=== PATIENT | female | born 2000 | race Hispanic/Latino ===

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

== ENCOUNTER 2020-01-17 22:17 | Emergency (ER) | payer SELFPAY ==
--- OUTSIDE RECORDS SUMMARY | 2020-01-17 22:19 | XMS REPORT ---
:2000 [facility] [address] [place] [address] Care Team Providers Name Role Phone Unavailable Unavailable Unavailable Payers Payer Name Policy Type Policy Number Effective Date Expiration Date Problems This patient has no known problems. Allergies, Adverse Reactions, Alerts Allergy Allergy Status Severity Reaction(s) Onset Inactive Treating Comments Name Type Date Date Clinician No Known DA Active U 2019-03 00:00:0 0 Medications This patient has no known medications. Results Test Description Test Time Test Comments Text Results Atomic Results Result Comments URINALYSIS COMPLETE 2019-03-20 23:19:00 Test Item Value Reference Range Comments UA COLOR (test code=COLU) YELLOW YELLOW UA APPEARANCE (test code=APPU) CLEAR CLEAR UA GLUCOSE DIPSTICK (test code=DGLUU) NEGATIVE mg/dL NEGATIVE UA BILIRUBIN DIPSTICK (test code=BILU) NEGATIVE mg/dL NEGATIVE UA KETONE DIPSTICK (test code=KETU) NEGATIVE mg/dL NEGATIVE UA SPECIFIC GRAVITY (test code=SGU) 1.031 1.001-1.035 UA BLOOD DIPSTICK (test code=TAURUS) 0.5 mg/dL (2+) mg/dL NEGATIVE UA PH DIPSTICK (test code=OLMAN) 6.0 5.0-8.0 UA PROTEIN DIPSTICK (test code=PROU) 10 (Trace) mg/dL NEGATIVE UA UROBILINIOGEN DIPSTICK (test code=URO) 3.0 (1+) mg/dL NEGATIVE UA NITRITE DIPSTICK (test code=KHUSHBU) NEGATIVE NEGATIVE UA LEUKOCYTE ESTERASE W REFLEX (test code=LEUUR) NEGATIVE Vania/uL NEGATIVE UA WBC (test code=WBCU) 0-5 per HPF 0-5 UA RBC (test code=RBCU) 51-100 #/HPF 0-5 UA EPITHELIAL CELLS (test code=EPIU) FEW per HPF FEW UA BACTERIA (test code=BACU) FEW #/HPF NONE UA MUCUS (test code=MUCU) FEW #/LPF FEW Urine Source? Clean CatchBASIC METABOLIC [id number] 22:39:00 Test Item Value Reference Range Comments SODIUM (test code=NA) 141 mmol/L 136-145 POTASSIUM (test code=K) 4.0 mmol/L 3.5-5.1 CHLORIDE (test code=CL) 107.0 mmol/L 98-107 CARBON DIOXIDE (test 28.0 mmol/L 21-32 code=CO2) ANION GAP (test code=GAP) 10.0 10-20 GLUCOSE (test code=GLU) 86 mg/dL 74-106 BLOOD UREA NITROGEN (test 14 mg/dL 7-18 code=BUN) GLOMERULAR FILTRATION RATE > 60 mL/min >=60 Estimated GFR by using (test code=GFR) Modified MDRD formula.Chronic kidney disease is defined as either kidney damageor GFR <60 mL/min/1.73 m2 for >3 months. CREATININE (test code=CREAT) 0.70 mg/dL 0.55-1.02 Note change in reference range due to change in reagent. BUN/CREATININE RATIO (test 20.0 10-20 code=BUN/CREA) CALCIUM (test code=CA) 8.9 mg/dL 8.5-10.1 HCG SERUM [id number] 22:39:00 Test Item Value Reference Range Comments HCG SERUM BETA (test < 1.0 mIU/mL 0-3 INTERPRETATION:B-HCG LEVELS <5 code=HCG) SHOULD BE CONSIDERED "NEGATIVE." *WHEN BODERLINE RESULTS ARE ENCOUNTERED,PATIENT SAMPLESSHOULD BE REDRAWN 48 HOURS. 0-1 WEEKS AFTER CONCEPTION 5-50 MIU/ML1-2 WEEKS AFTER CONCEPTION 50-500 MIU/ML2-3 WEEKS AFTER CONCEPTION 100 -5,000 MIU/ML3-4 WEEKS AFTER CONCEPTION 500-10,000 MIU/ML4-5 WEEKS AFTER CONCEPTION 1000 -50,000 MIU/ML5-6 WEEKS AFTER CONCEPTION 10,000-100,000 MIU/ML6-8 WEEKS AFTER CONCEPTION 15,000- 200,000 MIU/ML2-3 MONTHS AFTER CONCEPTION 10,000-100,000 MIU/ML - DUP AB/PEL/SC [id number] 22:36:00 Name: ALKA MOLINA [facility] : 2000 Age/S: 18 / F [address] [facility] Unit #: [id number] Loc: [place] [address] Phys: Cori Herrmann NP Acct: [id number] Dis Date: Status : REG ER PHONE #: [phone] Exam Date: 03/20/20192215 FAX #: [phone] Reason: PELVIC PAIN EXAMS: CPTCODE: [id number] DUP AB/PEL/SC COMP [id number] REASON FOR EXAM: VAGINAL BLEEDING/PELVIC PAIN EXAM ORDER DATE: 03/20/2019 9:42 PM Attending Rosi: Cori Herrmann NP PROCEDURE: - US PELVIS COMPLETE, - US TRANSVAGINAL NON OB, - DUP AB/PEL/SC COMP FINDINGS: The transabdominal ultrasound shows the uterus measured 7.5 x 3.7 cm. The ovaries were not seen on the transabdominal exam. No evidenceof free fluid or adnexal mass on the transabdominal exam. The transvaginal ultrasound shows the endometrial stripe measured 0.5 cm with an IUD device present. The right ovary measured 1.7 x 1.5 cm. The left ovary measured 3.1 x 3 cm with a cyst measuring 2 cm. Unremarkable ovarian flow is seen. Duplex scans of the ovarian arteries were performed. Mneg scaleimages were supplemented with color-flow Doppler. Doppler flow velocity analysis (duplex Doppler) was performed. No fluid seen in the cul-de-sac. No evidence of IUP. IMPRESSION: Left ovarian cyst (2 cm). Electronically Signed by Rosi Rodgers on 2018 at 2236 Reported and signed by: Leonel Rodgers M.D. CC: Cori Herrmann NP Technologist: Anat Barroso RDMS Trnscb Date/Time: 03/20/2019 (2236) JackelineL Orig Print D/T: S: 03/20/2019 (223) Probe: PAGE 1 Signed Report- US TRANSVAGINAL NON [id number] 22:36:00 Name: ALKA MOLINA [facility] : 2000 Age/S: 18 / F [address] Unit #: [id number] Loc: [place] [address] Phys: Cori Herrmann NP Acct: [id number] Dis Date: Status: REG ER PHONE #: [phone] Exam Date: 03/20/20192215 FAX #: [phone] Reason: VAGINALBLEEDING/ PELVIC PAIN EXAMS: CPTCODE: [id number] [place] [id number] REASON FOR EXAM: VAGINAL BLEEDING/PELVIC PAIN EXAM ORDER DATE: 03/20/2019 9:42 PM Attending Rosi: Cori Herrmann NP PROCEDURE: - US PELVIS COMPLETE, - US TRANSVAGINAL NON OB, - DUP AB/PEL/SC COMP FINDINGS: The transabdominal ultrasound shows the uterus measured 7.5 x 3.7 cm. The ovaries were not seen on the transabdominal exam. No evidenceof free fluid or adnexal mass on the transabdominal exam. The transvaginal ultrasound shows the endometrial stripe measured 0.5 cm with an IUD device present. The right ovary measured 1.7 x 1.5 cm. The left ovary measured 3.1 x 3 cm with a cyst measuring 2 cm. Unremarkable ovarian flow is seen. Duplex scans of the ovarian arteries were performed. Meng scaleimages were supplemented with color-flow Doppler. Doppler flow velocity analysis ( duplex Doppler) was performed. No fluid seen in the cul-de-sac. No evidence of IUP. IMPRESSION: Left ovarian cyst (2 cm). at 2236 Reported and signed by: Leonel Rodgers M.D. CC: Cori Herrmann NP Technologist: Anat Barroso RDMS Trnscb Date/Time: 03/20/2019 (223) [email or web address] Orig Print D/T: S: 03/20/2019 (2239) Probe: [id number] PAGE 1 Signed Report- US PELVIS [id number] 22:36:00 Name : ALKA MOLINA [facility] : Age/S: 18 / F [address] Unit #: [id number] Loc: [place] [address] Phys: Cori Herrmann NP Acct: [id number] Dis Date: Status: REG ER PHONE #: [phone] Exam Date: 03/20/20192215 FAX #: [phone] Reason: VAGINALBLEEDING/PELVIC PAIN EXAMS: CPTCODE: [id number] US PELVIS COMPLETE [id number] REASON FOR EXAM: VAGINAL BLEEDING/PELVIC PAIN EXAM ORDER DATE: 03/20 9:42 PM Attending Rosi: Cori Herrmann NP PROCEDURE: - US PELVIS COMPLETE, - US TRANSVAGINAL NON OB, - DUP AB/PEL /SC COMP FINDINGS: The transabdominal ultrasound shows the uterus measured 7.5 x 3.7 cm. The ovaries were not seen on the transabdominal exam. No evidenceof free fluid or adnexal mass on the transabdominal exam. The transvaginal ultrasound shows the endometrial stripe measured 0.5 cm with an IUD device present. The right ovary measured 1.7 x 1.5 cm. The left ovary measured 3.1 x 3 cm with a cyst measuring 2 cm. Unremarkable ovarian flow is seen. Duplex scans of the ovarian arteries were performed. Meng scaleimages were supplemented with color -flow Doppler. Doppler flow velocity analysis (duplex Doppler) was performed. No fluid seen in the cul-de-sac. No evidence of IUP. IMPRESSION: Left ovarian cyst (2 cm). at 2236 Reported and signed by: Leonel Rodgers M.D. CC: Cori Herrmann NP Technologist: Anat Barroso RDMS Trnscb Date /Time: 03/20/2019 (2235) [place] Orig Print D/T: S: 01/2019 (223) Probe: PAGE 1 Signed ReportBASIC METABOLIC [id number] 22:30:00 Test Item Value Reference Range Comments SODIUM (test code=NA) 141 mmol/L 136-145 POTASSIUM (test code=K) 4.0 mmol/L 3.5-5.1 CHLORIDE (test code=CL) 107.0 mmol/L 98-107 CARBON DIOXIDE (test code=CO2) mmol/L 21-32 ANION GAP (test code=GAP) 10-20 GLUCOSE (test code=GLU) mg/dL 74-106 BLOOD UREA NITROGEN (test code=BUN) mg/dL 7-18 GLOMERULAR FILTRATION RATE (test code=GFR) mL/min >=60 CREATININE (test code=CREAT) mg/dL 0.55-1.02 BUN/CREATININE RATIO (test code=BUN/CREA) 10-20 CALCIUM (test code=CA) mg/dL 8.5-10.1 HCG SERUM [id number] 22:30:00 Test Item Value Reference Range Comments HCG SERUM BETA (test code=HCG) mIU/mL 0-3 CBC W/O [id number] 22:27:00 Test Item Value Reference Range Comments WHITE BLOOD CELL (test code=WBC) 8.9 K/mm3 4.5-12.5 RED BLOOD CELL (test code=RBC) 4.83 mill/mm3 3.7-5.2 HEMOGLOBIN (test code=HGB) 13.8 gram/dL 11.5-15.5 HEMATOCRIT (test code=HCT) 41.7 % 36.0-46.0 MEAN CELL VOLUME (test code=MCV) 86.3 fL 80-98 MEAN CELL HGB (test code=MCH) 28.6 picogram 27.0-33.0 MEAN CELL HGB CONCETRATION (test code=MCHC) 33.1 gram/dL 33.0-36.0 RED CELL DISTRIBUTION WIDTH (test code=RDW) 13.2 % 11.6-16.2 PLATELET COUNT (test code=PLT) 328 K/mm3 150-450 MEAN PLATELET VOLUME (test code=MPV) 9.8 fL 6.7-11.0 CBC W/O [id number] 22:13:00 Test Item Value Reference Range Comments WHITE BLOOD CELL (test code=WBC) K/mm3 4.5-12.5 RED BLOOD CELL (test code=RBC) mill/mm3 3.7-5.2 HEMOGLOBIN (test code=HGB) 13.8 gram/dL 11.5-15.5 HEMATOCRIT (test code=HCT) 41.7 % 36.0-46.0 MEAN CELL VOLUME (test code=MCV) fL 80-98 MEAN CELL HGB (test code=MCH) picogram 27.0-33.0 MEAN CELL HGB CONCETRATION (test code=MCHC) gram/dL 33.0-36.0 RED CELL DISTRIBUTION WIDTH (test code=RDW) % 11.6-16.2 PLATELET COUNT (test code=PLT) K/mm3 150-450 MEAN PLATELET VOLUME (test code=MPV) fL 6.7-11.0
[2020-01-18] MEDS ORDERED: MORPHINE 4 MG/ML SYR ONE (00:40)
[2020-01-18] MEDS ORDERED: ONDANSETRON 4 MG/2 ML VIAL ONE (00:40)
[2020-01-18 01:04] LABS: Absolute Lymphocytes (CBC) 2.7 K/uL (0.7-4.9); Basophils % 0.7 % (0-1.3); Hematocrit 37.7 % (36.0-45.0); Lymphocytes % 25.1 % (15.3-44.8); MPV 7.9 fL (7.6-11.3); RBC Red Blood Cell Count 4.37 M/uL (3.86-4.86)
[2020-01-18 01:15] LABS: ALT/SGPT 15 U/L (12-78); AST/SGOT 16 U/L (15-37); Albumin 2.8 g/dL (3.4-5.0); Alkaline Phosphatase 90 U/L (45-117); BUN Blood Urea Nitrogen 11 mg/dL (7-18); Bicarbonate 29 mmol/L (21-32); Bilirubin Direct < 0.1 mg/dL (0-0.2); Bilirubin Total 0.2 mg/dL (0.2-1.0); Glucose Level 88 mg/dL (74-106); Lipase 440 U/L (73-393); Potassium 4.1 mmol/L (3.5-5.1); Sodium Level 140 mmol/L (136-145)
[2020-01-18 02:14] LABS: Urine RBC <5 /HPF (NONE SEEN)
[2020-01-18 02:16] LABS: Urine Bacteria <20 /HPF (<20); Urine Culture Reflex Order NOT NEEDED
--- NOTE | 2020-01-18 03:19 | EDPHYS ---
Physician Documentation [facility] Name: Tiago Floyd Age: 19 yrs Sex: Female : 2000 Arrival Date: 01/17/2020 Time: 22:19 Bed 13 Private MD: ED Physician Rigoberto Mota HPI: 01/17 00:56 This 19 yrs old Female presents to ER via Ambulatory with complaints of jr8 Abdominal pain . 00:56 The patient presents with abdominal pain in the right upper quadrant. Onset: The jr8 symptoms/episode began/occurred gradually, 2 day(s) ago. The symptoms radiate to the right shoulder. Associated signs and symptoms: Pertinent positives: nausea. The symptoms are described as stabbing. Modifying factors: The symptoms are alleviated by nothing, the symptoms are aggravated by nothing. Severity of pain: At its worst the pain was moderate in the emergency department the pain is unchanged. The patient has not experienced similar symptoms in the past. The patient has not recently seen a physician. 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 - Social history:: Smoking status: Patient denies any tobacco usage or history of. ROS: 01/17 00:56 Eyes: Negative for injury, pain, redness, and discharge, ENT: Negative for injury, jr8 pain, and discharge, Neck: Negative for injury, pain, and swelling, Cardiovascular: Negative for chest pain, palpitations, and edema, Respiratory: Negative for shortness of breath, cough, wheezing, and pleuritic chest pain, Back: Negative for injury and pain, MS/Extremity: Negative for injury and deformity, Skin: Negative for injury, rash, and discoloration, Neuro: Negative for headache, weakness, numbness, tingling, and seizure. Abdomen/GI: Positive for abdominal pain, nausea, Negative for vomiting, diarrhea, constipation, abdominal cramps, abdominal distension. Exam: 00:56 Eyes: Pupils equal round and reactive to light, extra-ocular motions intact. Lids and jr8 lashes normal. Conjunctiva and sclera are non-icteric and not injected. Cornea within normal limits. Periorbital areas with no swelling, redness, or edema. ENT: Nares patent. No nasal discharge, no septal abnormalities noted. Tympanic membranes are normal and external auditory canals are clear. Oropharynx with no redness, swelling, or masses, exudates, or evidence of obstruction, uvula midline. Mucous membranes moist. Neck: Trachea midline, no thyromegaly or masses palpated, and no cervical lymphadenopathy. Supple, full range of motion without nuchal rigidity, or vertebral point tenderness. No Meningismus. Cardiovascular: Regular rate and rhythm with a normal S1 and S2. No gallops, murmurs, or rubs. Normal PMI, no JVD. No pulse deficits. Respiratory: Lungs have equal breath sounds bilaterally, clear to auscultation and percussion. No rales, rhonchi or wheezes noted. No increased work of breathing, no retractions or nasal flaring. Back: No spinal tenderness. No costovertebral tenderness. Full range of motion. Skin: Warm, dry with normal turgor. Normal color with no rashes, no lesions, and no evidence of cellulitis. MS/ Extremity: Pulses equal, no cyanosis. Neurovascular intact. Full, normal range of motion. Neuro: Awake and alert, GCS 15, oriented to person, place, time, and situation. Cranial nerves II-XII grossly intact. Motor strength 5/5 in all extremities. Sensory grossly intact. Cerebellar exam normal. Normal gait. 00:56 Abdomen/GI: Inspection: abdomen appears normal, Bowel sounds: active, all quadrants, Palpation: soft, in all quadrants, moderate abdominal tenderness, in the right upper quadrant, mass, is not appreciated, rebound tenderness, is not appreciated, voluntary guarding, is not appreciated, involuntary guarding, is not appreciated, no appreciated organomegaly, Indicators: McBurney's point is not tender, Carr's sign is positive, Rovsing's sign is negative, Obturator sign is negative, Liver: tenderness, is not appreciated. Vital Signs: 01/16 22:45 BP 113 / 64; Pulse 92; Resp 16 S; Temp 98.4(O); Pulse Ox 100% on R/A; Weight 57.61 kg bb (R); Height 5 ft. 0 in. (152.40 cm) (R); Pain 8/10; 01/17 01:00 BP 109 / 78; Pulse 89; Resp 18; Pulse Ox 100% on R/A; mg2 02:00 BP 105 / 78; Pulse 80; Resp 18; Pulse Ox 100% on R/A; mg2 03:31 BP 115 / 78; Pulse 90; Resp 18; Temp 98; Pulse Ox 100% on R/A; mg2 03 22:45 Body Mass Index 24.80 (57.61 kg, 152.40 cm) bb MDM: 00:20 Patient medically screened. jr8 02:28 Data reviewed: vital signs, nurses notes, lab test result(s). Data interpreted: Pulse jr8 oximetry: on room air is 100 %. Interpretation: normal. Counseling: I had a detailed discussion with the patient and/or guardian regarding: the historical points, exam findings, and any diagnostic results supporting the discharge/admit diagnosis, lab results, radiology results. Transition of care: After a detail discussion of the patient's case, care is transferred to Rigoberto Mota MD. 01/17 00:30 Order name: Basic Metabolic Panel; Complete Time: :01/17 00:30 Order name: CBC with Diff; Complete Time: :01/17 00:30 Order name: Creatinine for Radiology; Complete Time: 01/17 00:30 Order name: Hepatic Function; Complete Time: 01/17 00:30 Order name: Lipase; Complete Time: :01/17 00:30 Order name: Urine Microscopic Only; Complete Time: 02:18 01/17 00:30 Order name: IV Saline Lock; Complete Time: 00:47 01/17 00:30 Order name: Labs collected and sent; Complete Time: 00:48 01/17 00:30 Order name: Urine Test (obtain specimen); Complete Time: 01/17 00:30 Order name: Urine Dipstick-Ancillary (obtain specimen); Complete Time: 01/17 01:21 Order name: CT Abd/Pelvis - IV Contrast Only jr8 Administered Medications: 00:46 Drug: Zofran (Ondansetron) 4 mg Route: IVP; Site: right antecubital; mg2 03:23 Follow up: Response: No adverse reaction mg2 00:47 Drug: morphine 4 mg Route: IVP; Site: right antecubital; mg2 03:23 Follow up: Response: No adverse reaction; RASS: Alert and Calm (0) mg2 03:31 Drug: [place] (7.5 mg-325 mg) 1 tabs Route: PO; mg2 03:31 Follow up: Response: No adverse reaction; Medication administered at discharge. mg2 Disposition: 03:16 Co-signature as Attending Physician, Rigoberto Mota MD. pkl Disposition: 01/18/20 03:18 Discharged to Home. Impression: Abdominal pain. - Condition is Stable. - Medication Reconciliation Form, Thank You Letter, Antibiotic Education, Prescription Opioid Use form. - Follow up: Private Physician; When: 1 - 2 days; Reason: Re-evaluation by your physician. - Problem is new. - Symptoms have improved. Signatures: Dispatcher [employer] EDMS Rigoberto Mota MD MD pkl Siena Davila RN RN bb Efraín Teague PA PA 8 Fili Cuevas RN RN mg2 Corrections: (The following items were deleted from the chart) 03:45 03:18 01/18/2020 03:18 Discharged to Home. Impression: Abdominal pain. Condition is mg2 Stable. Forms are Medication Reconciliation Form, Thank You Letter, Antibiotic Education, Prescription Opioid Use. Follow up: Private Physician; When: 1 - 2 days; Reason: Re-evaluation by your physician. Problem is new. Symptoms have improved. pkl
--- NOTE | 2020-01-18 03:19 | ER ---
Nurse's Notes [facility] Name: Tiago Floyd Age: 19 yrs Sex: Female : 2000 Arrival Date: 01/17/2020 Time: 22:19 Bed 13 Private MD: Diagnosis: Abdominal pain Presentation: 01/16 22:45 Chief complaint: Patient states: she is having sharp pain and pressure under her right bb rib area x one week which is getting worse. Coronavirus screen: The patient has NOT traveled to [place] in the past 14 days. Proceed with normal triage procedures. Ebola Screen: No symptoms or risks identified at this time. Initial Sepsis Screen: Does the patient meet any 2 criteria? No. Patient's initial sepsis screen is negative. Does the patient have a suspected source of infection? No. Patient's initial sepsis screen is negative. Risk Assessment: Do you want to hurt yourself or someone else? Patient reports no desire to harm self or others. 22:45 Method Of Arrival: Ambulatory bb 22:45 Acuity: JANET 3 bb 01/17 02:43 Onset of symptoms was December 2019. 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 - Social history:: Smoking status: Patient denies any tobacco usage or history of. Screenin/02 01:00 Fall Risk None identified. IV access (20 points). mg2 02:42 Abuse screen: Denies threats or abuse. Denies injuries from another. Nutritional mg2 screening: No deficits noted. Tuberculosis screening: No symptoms or risk factors identified. Assessment: 01:00 General: Appears in no apparent distress. comfortable, Behavior is calm, cooperative. mg2 Pain: Complains of pain in right upper quadrant Pain radiates to right shoulder. Neuro: Level of Consciousness is awake, alert, obeys commands, Oriented to person, place, time, situation. Cardiovascular: Capillary refill < 3 seconds Patient's skin is warm and dry. Respiratory: Airway is patent Respiratory effort is even, unlabored, Respiratory pattern is regular, symmetrical. GI: Abdomen is flat, non-distended, Reports upper abdominal pain, nausea. : No signs and/or symptoms were reported regarding the genitourinary system. EENT: No signs and/or symptoms were reported regarding the EENT system. Derm: Skin is intact, is healthy with good turgor, Skin is pink, warm \T\ dry. normal. Musculoskeletal: Circulation, motion, and sensation intact. Capillary refill < 3 seconds. 02:00 Reassessment: Patient appears in no apparent distress at this time. Patient and/or mg2 family updated on plan of care and expected duration. Pain level reassessed. Patient is alert, oriented x 3, equal unlabored respirations, skin warm/dry/pink. 03:00 Reassessment: Patient appears in no apparent distress at this time. Patient and/or mg2 family updated on plan of care and expected duration. Pain level reassessed. Patient is alert, oriented x 3, equal unlabored respirations, skin warm/dry/pink. Vital Signs: 01/16 22:45 BP 113 / 64; Pulse 92; Resp 16 S; Temp 98.4(O); Pulse Ox 100% on R/A; Weight 57.61 kg bb (R); Height 5 ft. 0 in. (152.40 cm) (R); Pain 8/10; 01/17 01:00 BP 109 / 78; Pulse 89; Resp 18; Pulse Ox 100% on R/A; mg2 02:00 BP 105 / 78; Pulse 80; Resp 18; Pulse Ox 100% on R/A; mg2 03:31 BP 115 / 78; Pulse 90; Resp 18; Temp 98; Pulse Ox 100% on R/A; mg2 03/ 22:45 Body Mass Index 24.80 (57.61 kg, 152.40 cm) bb ED Course: 01/16 22:19 Patient arrived in ED. cl3 22:47 Triage completed. bb 22:47 Arm band placed on Patient placed in waiting room, Patient notified of wait time. bb 01/17 00:07 Efraín Teague PA is PHCP. jr8 00:07 Rigoberto Mota MD is Attending Physician. jr8 00:38 Fili Cuevas RN is Primary Nurse. mg2 00:45 Inserted saline lock: 20 gauge in right antecubital area, using aseptic technique. mg2 02:43 Patient has correct armband on for positive identification. Pulse ox on. NIBP on. Door mg2 closed. Warm blanket given. 02:43 No provider procedures requiring assistance completed. mg2 02:49 CT Abd/Pelvis - IV Contrast Only In Process Unspecified. EDMS 03:35 IV discontinued, intact, bleeding controlled, No redness/swelling at site. Pressure mg2 dressing applied. Administered Medications: 00:46 Drug: Zofran (Ondansetron) 4 mg Route: IVP; Site: right antecubital; mg2 03:23 Follow up: Response: No adverse reaction mg2 00:47 Drug: morphine 4 mg Route: IVP; Site: right antecubital; mg2 03:23 Follow up: Response: No adverse reaction; RASS: Alert and Calm (0) mg2 03:31 Drug: [place] (7.5 mg-325 mg) 1 tabs Route: PO; mg2 03:31 Follow up: Response: No adverse reaction; Medication administered at discharge. mg2 Outcome: 03:18 Discharge ordered by . tonny 03:35 Discharged to home ambulatory, with family. mg2 03:35 Condition: stable 03:35 Discharge instructions given to patient, family, Instructed on discharge instructions, follow up and referral plans. Demonstrated understanding of instructions, follow-up care. 03:45 Patient left the ED. mg2 Signatures: Dispatcher [employer] EDMS Rigoberto Mota MD MD pkl Ballard, Brenda, RN RN Efraín Rosales PA PA jr8 Fili Cuevas RN RN mg2 Ladarius Boyd cl3
[2020-01-18] MEDS ORDERED: HYDROCODONE/APAP 7.5/325 MG TAB ONE (03:31)
[2020-01-18 03:53] VITALS: O2SAT 100
[2020-01-18 03:57] VITALS: BP 115/78; TEMP 98
--- NOTE | 2020-01-18 10:45 | RAD REPORT ---
EXAM DESCRIPTION: Abdomen Pelvis W Contrast CLINICAL HISTORY: ABD PAIN COMPARISON: None. 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 FINDINGS: Lower lungs are clear. Abdomen: The liver is normal in appearance. There is no biliary dilatation. Gallbladder is normal in appearance. The pancreas and spleen are normal in appearance. The adrenal glands and kidneys are unre markable. Abdominal aorta is normal in course and caliber without aneurysm. There is no free air. There is no r etroperitoneal adenopathy. Pelvis: There is large amount of stool throughout the colon. There are several nonspecific dilated sm all bowel loops in the left upper quadrant. Urinary bladder is unremarkable. There is no free fluid. Uterus is normal in size. Appendix is normal. Skeleton: There are no acute osseous findings. No suspicious bony lesions. IMPRESSION: No definite acute inflammatory process. 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 The interpreting radiologist is f waqarly responsible for the content of the report.
== END 2020-01-18 03:45 | disposition home or self-care (01) ==
LOC: ER 22:17
DX: R10.11 Right upper quadrant pain (principal)
CPT/HCPCS: 36415; 74177; 80048; 80076; 81015; 83690; 85025; 96374; 96375; J2405; Q9967

== ENCOUNTER 2020-06-16 20:57 | Emergency (ER) | payer SELFPAY ==
--- OUTSIDE RECORDS SUMMARY | 2020-06-16 21:00 | XMS REPORT | Summary of Care ---
:2000 Author Organization [facility] Address [address] [place] [address] Care Team Providers Name Role Phone Daina Glass Insurance Hmo Viry Lopez Primary Care Provider Reason for Visit Reason Comments CONTROL change from ocp to depo Encounter Details Date Type Department Care Team Description [facility] Enc ounter for other general counseling or advice on contraception (Primary Dx); [facility] Chlamydia trachomatis infection of lower genitourinary sites [address] [facility] [address] [facility] [place] [address] [place] [address] [place], [place] [phone] Allergies No Known Allergiesdocumented as of this encounter (statuses as of 06/03/2020) Medications Medication Sig Dispensed Refills Start Date End Date Status SERTraline (ZOLOFT) 50 Take 1 tablet by 30 tablet 3 06/20/2018 Active mg tabletIndications: mouth daily. depression norgestimate-ethinyl Take 1 tablet by 4 Package 0 12/25/2019 Active estradiol mouth daily. ([id number]-[id number]) 0.18/0.215/0.25 mg-25 mcg tabletIndications: Encounter for initial prescription of contraceptive pills documented as of this encounter (statuses as of 06/03/2020) Active Problems Problem Noted Date Chlamydia trachomatis infection of lower genitourinary sites 12/28/2019 BMI 25.0-25.9,adult 12/25/2019 Screen for STD (sexually transmitted disease) 12/25/19 20 Encounter for other general counseling or advice on co ntraception 12/25/2019 Well woman exam 12/25/2019 documented as of this encounter (statuses as of 06/03/2020) Resolved Problems Problem Noted Date Resolved Date Single liveborn infant delivered vaginally 2018 06/19/2018 39 weeks gestation of 05/15/2018 12/25/19 20 [place] contractions 02/21/2018 12/25/2019 Upper respiratory tract infection, unspecified type 02/22/20 18 12/25/2019 High risk teen , antepartum 11/26/201705/2020 Immune to varicella 11/26/2017 12/25/2019 Rubella immune 11/26/2017 12/25/2019 High risk teen in first trimester 10/14/2017 11/26/2017 Nausea/vomiting in 10/01/2017 12/25/2019 Oral contraceptive use 04/10/2017 11/26/2017 (spontaneous vaginal delivery) 07/24/201612/25 Normal labor 06/25/2016 11/26/2017 Active labor at term 06/25/2016 07/24/2016 Excessive weight gain during , third trimester 03/201611/26/2017 Antepartum anemia in third trimester 04/13/201604/2016 pyelectasis 03/29/2016 11/26/2017 Supervision of high-risk of young primigravida 12/25/2019 Rubella non-immune status, antepartum 12/20/2015 Overview: Will need pp Susceptible to varicella (non-immune), currently 11/26/2017 Overview: Will need pp Obesity affecting in third trimester 11/25/2015 12/25/2019 Nausea and vomiting during prior to 22 weeks 11/2507/24/2016 gestation Supervision of high-risk of young primigravida, kala ruth 11/22/2015 01/31/2016 trimester documented as of this encounter (statuses as of 06/03/2020) Immunizations Name Administration Dates Next Due Influenza Virus Vaccine Quad IM 3+ YRS 11/22/2015 MMR 06/27/2016 TDAP 02/21/2018, 04/12/2016 Varicella (varivax)(chicken pox) 08/15/2016, 06/27/2016 documented as of this encounter Social History Tobacco Use Types Packs/Day Years Used Date Never Smoker Smokeless Tobacco: Never Used Alcohol Use Drinks/Week oz/Week Comments No 0 Standard drinks or equivalent 0.0 Sex Assigned at Date Recorded Not on file Job Start Date Occupation Industry Not on file Not on file Not on file Travel History Travel Start Travel End No recent travel history available. COVID-19 Exposure Response Date Recorded In the last month, have you been in contact with No / Unsure 06/03/2020 1:56 PM CDT someone who was confirmed or suspected to have Coronavirus / COVID-19? documented as of this encounter Last Filed Vital Signs Vital Sign Reading Time Taken Comments Blood Pressure 118/75 06/03/2020 1:56 PM CDT Pulse 96 06/03/2020 1:56 PM CDT Temperature 36.7 C (98 F) 06/03/2020 1:56 PM CDT Respiratory Rate 16 06/03/2020 1:56 PM CDT Oxygen Saturation - - Inhaled Oxygen Concentration - - Weight 61 kg (134 lb 6 oz) 06/03/2020 1:56 PM CDT Height 152.4 cm (5') 06/03/2020 1:56 PM CDT Body Mass Index 26.24 06/03/2020 1:56 PM CDT documented in this encounter Progress Notes Anna Argueta, PACU NURSE - 06/03/2020 1:30 PM CDT Chief complaint: Chief Complaint Patient presents with CONTROL change from ocp to depo HPI Tiago Floyd is a 20 year old here for contraceptive management and STD testing. She was started on OCPs in December, which she was taking until about 1 month ago. She has been using condoms,but not consistently. Was treated for chlamydia in December and reports partner also treated, due for test of cure. Histories OB History Para Term AB Living 2 2 2 0 0 2 SAB TAB Ectopic Multiple Live Births 0 0 0 0 2 # Outcome Date GA Lbr West/2nd Weight Sex Delivery Anes PTL Lv 2 Term 06/28/18 39w4d 6 lb 2 oz (2.778 kg) F EPI AMEENA 1 Term 06/25/16 38w0d 6 lb 15.8 oz (3.17 kg) M VAGINAL EPI N AMEENA Past Medical History: Diagnosis Date Antepartum anemia in third trimester 04/13/2016 Esophageal reflux pyelectasis 03/29/2016 Obese Post depression Screen for STD (sexually transmitted disease) 12/25/2019 Family History Problem Relation Age of Onset No Significant Medical Problems Mother No Significant Medical Problems Father Cancer Paternal Grandmother Arthritis NoFHx defects NoFHx Breast Cancer NoFHx Colon Cancer NoFHx Asthma NoFHx Ovarian Cancer NoFHx Uterine Cancer NoFHx Depression NoFHx Diabetes NoFHx Genetic NoFHx Heart NoFHx High cholesterol NoFHx Hypertension NoFHx Mental retardation NoFHx Neurological NoFHx Osteoporosis NoFHx Psychiatry NoFHx Other - see comments NoFHx Family Status Relation Name Status Mo Alive Fa Alive PGMo NoFHx (Not Specified) History reviewed. No pertinent surgical history. Social History Socioeconomic History Marital status: Single Spouse name: Not on file Number of children: Not on file Years of education: Not on file Highest education level: Not on file Occupational History Not on file Social Needs Financial resource strain: Not on file Food insecurity: Worry: Not on file Inability: Not on file Transportation needs: Medical: Not on file Non-medical: Not on file Tobacco Use Smoking status: Never Smoker Smokeless tobacco: Never Used Substance and Sexual Activity Alcohol use: No Alcohol/week: 0.0 standard drinks Drug use: No Sexual activity: Yes Partners: Male control/protection: None Comment: last intercourse 12/21/2019 Lifestyle Physical activity: Days per week: Not on file Minutes per session: Not on file Stress: Not on file Relationships Social connections: Talks on phone: Not on file Gets together: Not on file Attends restoration service: Not on file Active member of club or organization: Not on file Attends meetings of clubs or organizations: Not on file Relationship status: Not on file Intimate partner violence: Fear of current or ex partner: Not on file Emotionally abused: Not on file Physically abused: Not on file Forced sexual activity: Not on file Other Topics Concern Not on file Social History Narrative Lives at home with 2 children Denies domestic violence or abuse No exposure to cats No restoration preference Social History Substance and Sexual Activity Sexual Activity Yes Partners: Male control/protection: None Comment: last intercourse 12/21/2019 Labs I have reviewed the patient's labs. and Labs are pending. Radiology No new radiology. Allergies Tiago has No Known Allergies. Medications Tiago has a current medication list which includes the following prescription(s): norgestimate-ethinyl estradiol and sertraline. Review of Systems Constitutional: Negative. HENT: Negative. Eyes: Negative. Respiratory: Negative. Breasts: Negative. Cardiovascular: Negative. Gastrointestinal: Negative. Genitourinary: Negative. Musculoskeletal: Negative. Skin: Negative. Neurological: Negative. Psychiatric/Behavioral: Negative. Endocrine: Endocrine negative BP 118/75 (BP Location: Right arm, Patient Position: Sitting, BP CUFF SIZE: Adult Medium) | Pulse 96 | Temp 36.7 C (98 F) (Oral) | Resp 16 | Ht 5' (1.524 m) | Wt 134 lb 6 oz (61 kg) | LMP 05/30/2020 (Exact Date) | BMI 26.24 kg/m Pregravid BMI: Could not be calculated Physical Exam Vitals reviewed. Constitutional: She is oriented to person, place, and time. She appears well- developed and well-nourished. Cardiovascular: Regular rate and rhythm. No murmur auscultated. Pulmonary/Chest: Breath sounds clear to auscultation. Normal inspiratory effort. Neuro/Psychiatric: She has a normal mood and affect. She is oriented to person, place, and time. Assessment/Plan 1. Encounter for other general counseling or advice on contraception D/w pt at length various BCMs including OCPs, Patch, Depo Provera, vaginal rings, condoms, implants and iuds. We discussed the risk/benefits/side effects of each. After discussion, pt desires to proceed with depo. UPT negative today. Pt instructed on abstinence x 2 weeks and RTC for 2nd UPT and depo injection - POCT TEST 2. Chlamydia trachomatis infection of lower genitourinary sites Reviewed safe sex practices - GC & CHLAMYDIA AMPLIFIED ASSAY Return to clinic in 2 weeks. Discussed treatment options. Reviewed patient instructions and provided printed copy. This visit did not involve counseling and coordination that comprised more than 50% of the visit time. documented in this encounter Plan of Treatment Date Type Specialty Care Team Description 06/17/2020 Nurse Visit OB Satellites Visit, [facility] Nurse Name Type Priority Associated Diagnoses Order S chedule GC & CHLAMYDIA AMPLIFIED LAB Routine Chlamydia tracho matis Ordered: 06/03/2020 ASSAY infection of lower genitourinary sites Health Maintenance Due Date Last Done Comments CHLAMYDIA SCREENING 12/25/2020 12/25/2019, 12/25/2019, 04/18/2018, Additional history exists Depression Screening 12/25/2020 12/25/2019 HPV VACCINES (1 - Female 12/25/2020 Postpon ed from 2-dose series) 2011 (Refu sed) INFLUENZA VACCINE (#1) 2020 11/22/2015 Postponed from 07/19/2020 (Refu sed) MENINGOCOCCAL B VACCINES (1 12/25/2020 Post poned from of 2 - Risk Bexsero 2-dose 05/16 (Insurance series) / Financial) DTaP,Tdap,and Td Vaccines 02/22/2028 02/21/2018, 04/12/2016 (3 - Td) WELL CARE VISIT: - Discontinued 12/25/2019 YEARS (yearly) MENINGOCOCCAL VACCINE Aged Out No longer eligible based on patient 's age to complete this topic PNEUMOCOCCAL 0-64 YEARS Aged Out No longe r eligible COMBINED SERIES based on patient 's age to complete this topic documented as of this encounter Procedures Procedure Name Priority Date/Time Associated Diagnosis Comme nts POCT Routine 06/03/2020 1:57 Encounter for other Re sults for this TEST PM CDT general counseling or proced ure are in advice on the results contraception section. documented in this encounter Results POCT TEST (06/03/2020 1:57 PM CDT) Pathologist Sig nature POCT PREG Negative On board controls acceptable Yes with C Line POCT PREG LOT # POCT PREG TEST DATE Specimen Urine - URINE, CLEAN CATCH documented in this encounter Visit Diagnoses Diagnosis Encounter for other general counseling o r advice on contraception - Primary Chlamydia trachomatis infection of lower genitourinary sites documented in this encounter Insurance Payer Benefit Plan Subscriber ID Effective Phone Address Typ e / Group Dates [facility] xxxxxxxxx 2019-Prese [phone] Medicaid WOMEN nt [address] [place] [address] ([address]) [address] [place], [place] [address] documented as of this encounter"
--- OUTSIDE RECORDS SUMMARY | 2020-06-16 21:00 | XMS REPORT | Summary of Care ---
:2000 Author Organization [facility] Address [address] [place] [address] Care Team Providers Name Role Phone Daina Glass Insurance Hmo Viry Lopez Primary Care Provider Reason for Visit Reason Comments Appointment PENELOPE, tere BC Encounter Details Date Type Department Care Team Description 05/27/2020 Telephone [facility]- Akinsipe Ermelinda Nydia ointment (Jj NEGRETE WHCNP discuss BC) 1108 [facility] [address] [facility] [place], [place] [phone] Allergies No Known Allergiesdocumented as of this encounter (statuses as of 05/27/2020) Medications Medication Sig Dispensed Refills Start Date End Date Status SERTraline (ZOLOFT) 50 Take 1 tablet by 30 tablet 3 06/20/2018 Active mg tabletIndications: mouth daily. depression norgestimate-ethinyl Take 1 tablet by 4 Package 0 12/25/2019 Active estradiol mouth daily. ([id number]) 0.18/0.215/0.25 mg-25 mcg tabletIndications: Encounter for initial prescription of contraceptive pills documented as of this encounter (statuses as of 05/27/2020) Active Problems Problem Noted Date Chlamydia trachomatis infection of lower genitourinary sites 12/28/2019 BMI 25.0-25.9,adult 12/25/2019 Screen for STD (sexually transmitted disease) 12/25/19 20 Encounter for other general counseling or advice on co ntraception 12/25/2019 Well woman exam 12/25/2019 documented as of this encounter (statuses as of 05/27/2020) Resolved Problems Problem Noted Date Resolved Date Single liveborn delivered vaginally 2018 06/19/2018 39 weeks gestation [...] as of this encounter (statuses as of 05/27/2020) Immunizations Name Administration Dates Next Due Influenza [...] Travel End No recent travel history available. documented as of this encounter Last Filed Vital Signs Not on filedocumented in this encounter Plan of Treatment Health Maintenance Due Date Last Done Comments [...] 04/12/2016 (3 - Td) WELL CARE VISIT: 12-21 Discontinued 12/25/2019 YEARS (yearly) MENINGOCOCCAL VACCINE Aged Out No longer eligible based on patient 's age to complete this topic PNEUMOCOCCAL 0-64 YEARS Aged Out No longe r eligible COMBINED SERIES based on patient 's age to complete this topic documented as of this encounter Results Not on filedocumented in this encounter Insurance Payer Benefit Plan Subscriber ID Effective Phone Address Typ e / Group Dates [facility] [place] [facility] xxxxxxxxx 2019-Prese [phone] Medicaid WOMEN nt [address] [place] [address] documented as of this encounter
--- OUTSIDE RECORDS SUMMARY | 2020-06-16 21:00 | XMS REPORT | Summary of Care ---
:2000 Author Organization [facility] Address [address] [place] [address] Care Team Providers Name Role Phone Daina Glass Insurance Hmo Viry Lopez Primary Care Provider Reason for Visit Reason Comments Refill Request Encounter Details Date Type Department Care Team Description 06/06/2020 Refill [facility]- A [facility] Doctor Unassigned, No Refill Request [address] [facility] [place] [address] [address] [facility] [phone] [place] [address] Allergies No Known Allergiesdocumented as of this encounter (statuses as of 06/08/2020) Medications Medication Sig Dispensed Refills Start Date End Date Status SERTraline (ZOLOFT) 50 Take 1 tablet by 30 tablet 3 06/20/2018 Active mg tabletIndications: mouth daily. depression norgestimate-ethinyl Take 1 tablet by 4 Package 0 12/25/2019 Active estradiol mouth daily. ([id number]) 0.18/0.215/0.25 mg-25 mcg tabletIndications: Encounter for initial prescription of contraceptive pills documented as of this encounter (statuses as of 06/08/2020) Active Problems Problem Noted Date Chlamydia trachomatis infection of lower genitourinary sites 12/28/2019 BMI 25.0-25.9,adult 12/25/2019 Screen for STD (sexually transmitted disease) 12/25/19 Encounter for other general counseling or advice on co ntraception 12/25/2019 Well woman exam 12/25/2019 documented as of this encounter (statuses as of 06/08/2020) Resolved Problems Problem Noted Date Resolved Date Single liveborn delivered vaginally 2018 06/19/2018 39 weeks gestation of 05/15/2018 12/25/19 20 [place] contractions 02/21/2018 12/25/2019 Upper respiratory tract [...] as of this encounter (statuses as of 06/08/2020) Immunizations Name Administration Dates Next Due Influenza [...] filedocumented in this encounter Plan of Treatment Date Type Specialty Care Team Description 06/17/2020 Nurse Visit [facility] Satell[facility] Visit, [facility] Nurse 09/06/2020 Supervisor Quilting Visit [facility] Lab, [facility] Health Maintenance Due Date Last Done Comments Depression Screening 12/25/2020 12/25/2019 HPV VACCINES (1 - Female 12/25/2020 Postpon ed from 2-dose series) 2011 (Refu sed) INFLUENZA VACCINE (#1) 2020 11/22/2015 Postponed from 07/19/2020 (Refu sed) MENINGOCOCCAL B VACCINES (1 12/25/2020 Post poned from of 2 - Risk Bexsero 2-dose 05/16 (Insurance series) / Financial) CHLAMYDIA SCREENING 06/03/2021 06/03/2020, 12/25/2019, 12/25/2019, Additional history exists DTaP,Tdap,and Td Vaccines 02/22/2028 02/21/2018, 04/12/2016 (3 [...] Results Not on filedocumented in this encounter Visit Diagnoses Diagnosis Chlamydia trachomatis infection of lower genitourinary sites documented in this encounter Insurance Payer Benefit Plan Subscriber ID Effective Phone Address Typ e / Group Dates [facility] xxxxxxxxx 2019-Prese [phone] [address] Medicaid WOMEN nt [address] [place] [address] documented as of this encounter
--- OUTSIDE RECORDS SUMMARY | 2020-06-16 21:00 | XMS REPORT | Summary of Care ---
:2000 Author Organization [facility] Address [address] [place] [address] Care Team Providers Name Role Phone Daina Glass Insurance Hmo Viry Lopez Primary Care Provider Reason for Visit Reason Comments CONTROL change from ocp to depo Encounter Details Date Type Department Care Team Description [facility]/03[facility] Enc ounter for other general counseling or advice on contraception (Primary Dx); [facility] Chlamydia trachomatis infection of lower genitourinary sites 1108 [facility] [address] [facility] [address] [place] [address] [place], [place] [phone] Allergies No Known Allergiesdocumented as of this encounter (statuses as of 06/03/2020) Medications Medication Sig Dispensed Refills Start Date End Date Status SERTraline (ZOLOFT) 50 Take 1 tablet by 30 tablet 3 06/20/2018 Active mg tabletIndications: mouth daily. depression norgestimate-ethinyl Take 1 tablet by 4 Package 0 12/25/2019 Active estradiol mouth daily. (FUQ-[id number]) 0.18/0.215/0.25 mg-25 mcg tabletIndications: Encounter for initial [...] in this encounter Progress Notes Anna Argueta, COMMUNITY SPECIALIST - 06/03/2020 1:30 PM CDT Chief complaint: [...] file Gets together: Not on file Attends jainism service: Not on file Active member of [...] or abuse No exposure to cats No jainism preference Social History Substance and Sexual Activity [...] Description 06/17/2020 Nurse Visit OB Satellites Visit, [facility] Nurse Name Type Priority Associated Diagnoses Order [...] Address Typ e / Group Dates [facility] xxxxxxxxx 2019-Prese [phone] [address] Medicaid WOMEN nt [address] [place] [address] ([address]) [address] [place], [place] [address] documented as of this encounter"
--- OUTSIDE RECORDS SUMMARY | 2020-06-16 21:00 | XMS REPORT | Summary of Care ---
:2000 Author Organization [facility] Address [address] [place] [address] Care Team Providers Name Role Phone Daina Glass Insurance Hmo Viry Lopez Primary Care Provider Reason for Visit Reason Comments Lab Results Encounter Details Date Type Department Care Team Description 06/06/2020 Telephone [facility]- A Anna Riddle, WELFARE DIRECTOR Lab Results [address] [facility] [address] [place] [address] [facility] A [phone] [place], [place] [address] [phone] Allergies No Known Allergiesdocumented as of this encounter (statuses as of 06/06/2020) Medications Medication Sig Dispensed Refills Start Date End Date Status SERTraline (ZOLOFT) 50 Take 1 tablet by 30 tablet 3 06/20/2018 Active mg tabletIndications: mouth daily. depression norgestimate-ethinyl Take 1 tablet by 4 Package 0 12/25/2019 Active estradiol mouth daily. (EDL-[id number]) 0.18/0.215/0.25 mg-25 mcg tabletIndications: Encounter for initial prescription of contraceptive pills azithromycin Take 2 tablets 2 tablet 0 06/06/2020 06/06/2020 Active (ZITHROMAX) 500 mg by mouth once tabletIndications: now for 1 dose. Chlamydia trachomatis infection of lower genitourinary sites documented as of this encounter (statuses as of 06/06/2020) Active Problems Problem Noted Date Chlamydia trachomatis infection of lower genitourinary sites 12/28/2019 BMI 25.0-25.9,adult 12/25/2019 Screen for STD (sexually transmitted disease) 12/25/19 Encounter for other general counseling or advice on co ntraception 12/25/2019 Well woman exam 12/25/2019 documented as of this encounter (statuses as of 06/06/2020) Resolved Problems Problem Noted Date Resolved Date Single liveborn infant delivered vaginally 2018 06/19/2018 39 weeks gestation of 05/15/2018 12/25/19 [place] contractions 02/21/2018 12/25/2019 Upper respiratory [...] Excessive weight gain during , third trimester 08/03/201611/26/2017 Antepartum anemia in third trimester 04/13/201604/2016 pyelectasis [...] as of this encounter (statuses as of 06/06/2020) Immunizations Name Administration Dates Next Due Influenza [...] Description 06/17/2020 Nurse Visit OB Satellites Visit, [facility] Nurse 09/06/2020 Production Material Handler Visit OB Satellites Lab, [facility] Health Maintenance Due Date Last Done [...] 04/12/2016 (3 - Td) WELL CARE VISIT: 12- Discontinued 12/25/2019 YEARS (yearly) MENINGOCOCCAL VACCINE Aged Out No longer eligible based on patient 's age to complete this topic PNEUMOCOCCAL 0-64 YEARS Aged Out No longe r eligible COMBINED SERIES based on patient 's age to complete this topic documented as of this encounter Results Not on filedocumented in this encounter Visit Diagnoses Diagnosis Chlamydia trachomatis infection of lower genitourinary sites - Primary documented in this encounter Insurance Payer Benefit Plan Subscriber ID Effective Phone Address Typ e / Group Dates [facility] xxxxxxxxx 2019-Prese [phone] [address] Medicaid WOMEN nt [address] [place] [address] documented as of this encounter
--- NOTE | 2020-06-16 22:03 | ER ---
Nurse's Notes [facility] Name: Tiago Floyd Age: 20 yrs Sex: Female : 2000 Arrival Date: 06/16/2020 Time: 21:01 Bed 18 Private MD: Diagnosis: Dysmenorrhea, unspecified Presentation: 06/16 21:12 Chief complaint: Patient states: Vaginal bleeding that has continued after last lp1 menstrual cycle 2 weeks ago with pelvic cramping. Coronavirus screen: Client denies travel out of the [place] in the last 14 days. At this time, the client does not indicate any symptoms associated with coronavirus-19. Ebola Screen: No symptoms or risks identified at this time. Initial Sepsis Screen: Does the patient meet any 2 criteria? No. Patient's initial sepsis screen is negative. Does the patient have a suspected source of infection? No. Patient's initial sepsis screen is negative. Risk Assessment: Do you want to hurt yourself or someone else? Patient reports no desire to harm self or others. Onset of symptoms was June 16, 2020. 21:12 Method Of Arrival: Ambulatory lp1 21:12 Acuity: JANET 3 lp1 ADHESION TESTER: 21:15 LMP 05/26/2020 lp1 21:38 2, Living 2 snw Historical: - Allergies: 21:15 No Known Allergies; lp1 - Home Meds: 21:15 None [Active]; lp1 - PMHx: 21:15 None; lp1 - PSHx: 21:15 None; lp1 - Immunization history:: Adult Immunizations up to date. - Social history:: Smoking status: Patient denies any tobacco usage or history of. Screenin:15 Abuse screen: Denies threats or abuse. Denies injuries from another. Nutritional lp1 screening: No deficits noted. Tuberculosis screening: No symptoms or risk factors identified. Fall Risk None identified. Assessment: 21:26 General: Appears in no apparent distress. Behavior is calm, cooperative. Pain: ks7 Complains of pain in pelvis Pain currently is 8 out of 10 on a pain scale. Quality of pain is described as crampy, Pain began on and off for 2 weeks Is intermittent. : Reports vaginal bleeding that is bright red, with clots, spotty, since 2 weeks ago. 21:30 Reassessment: pt states she had a regular period 2 weeks ago. she started bleeding ks7 again/had another period last week and since last week has been spotting intermittently. pt also c/o 8/10 cramping pain to lower abd/pelvis. 22:13 Reassessment: Patient is alert, oriented x 3, equal unlabored respirations, skin ks7 warm/dry/pink. Patient states symptoms have improved. Vital Signs: 21:12 BP 116 / 68; Pulse 87; Resp 18; Pulse Ox 100% on R/A; Weight 58.97 kg (R); Height 5 ft. lp1 0 in. (152.40 cm); Pain 7/10; 21:26 BP 103 / 53; Pulse 73; Resp 18; Pulse Ox 100% ; Pain 8/10; ks7 22:08 BP 104 / 59; Pulse 61; Resp 16; Temp 98.2(O); Pulse Ox 100% on R/A; Pain 5/10; ks7 22:15 Resp 18; Pulse Ox 100% ; Pain 0/10; ks7 21:12 Body Mass Index 25.39 (58.97 kg, 152.40 cm) lp1 ED Course: 21:01 Patient arrived in ED. es 21:11 Amelie Ye FNP-C is [facility]. snw 21:11 Shaq Powell MD is Attending Physician. snw 21:14 Triage completed. lp1 21:14 Arm band placed on. lp1 21:22 Millie Coleman, RN is Primary Nurse. ks7 21:26 Resting quietly. ks7 21:26 Patient has correct armband on for positive identification. Bed in low position. Call ks7 light in reach. Side rails up X2. 21:26 No provider procedures requiring assistance completed. Patient did not have IV access ks7 during this emergency room visit. 21:38 Urine --Ancillary (enter results) Sent. ks7 21:38 Urine Dipstick--Ancillary (enter results) Sent. ks7 Administered Medications: 22:08 Drug: TORadol 30 mg Route: IM; Site: right deltoid; ks7 22:15 Follow up: Resp 18 bpm; Pulse Ox 100% ; Pain 0/10 Adult ks7 Outcome: 22:02 Discharge ordered by . snw 22:13 Discharged to home ambulatory. ks7 22:13 Condition: good 22:13 Discharge instructions given to patient, Instructed on discharge instructions, medication usage, Demonstrated understanding of instructions, medications, Prescriptions given X 2. 22:14 Patient left the ED. ks7 Signatures: Amelie Ye, SLUMBER ROOM ATTENDANT-C SLUMBER ROOM ATTENDANT-Csnw Siria Greene Laura RN RN lp1 Millie Coleman RN RN ks7 Corrections: (The following items were deleted from the chart) 21:31 21:26 Pain: Complains of pain in pelvis Pain currently is 8 out of 10 on a pain scale. ks7 Quality of pain is described as crampy, Pain began on and off for 2 weeks Is intermittent, ks7
--- NOTE | 2020-06-16 22:03 | EDPHYS ---
Physician Documentation [facility] Name: Tiago Floyd Age: 20 yrs Sex: Female : 2000 Arrival Date: 06/16/2020 Time: 21:01 Bed 18 Private MD: ED Physician Shaq Powell HPI: 06/16 21:38 This 20 yrs old Female presents to ER via Ambulatory with complaints of snw Vaginal Bleeding, cramping. 21:38 The patient presents with vaginal bleeding that is moderate. Onset: The snw symptoms/episode began/occurred 1 day(s) ago. Modifying factors: The symptoms are alleviated by nothing. Associated signs and symptoms: Pertinent positives: cramping. The patient's method of control includes condom, to get bc soon. The patient has experienced similar episodes in the past. It is unknown whether or not the patient has recently seen a physician. APPLICATION SYSTEMS ENGINEER: 21:15 LMP 05/26/2020 lp1 21:38 2, Living 2 snw Historical: - Allergies: 21:15 No Known Allergies; lp1 - Home Meds: 21:15 None [Active]; lp1 - PMHx: 21:15 None; lp1 - PSHx: 21:15 None; lp1 - Immunization history:: Adult Immunizations up to date. - Social history:: Smoking status: Patient denies any tobacco usage or history of. ROS: 21:37 Constitutional: Negative for fever, chills, and weight loss, Eyes: Negative for injury, snw pain, redness, and discharge, ENT: Negative for injury, pain, and discharge, Neck: Negative for injury, pain, and swelling, Cardiovascular: Negative for chest pain, palpitations, and edema, Respiratory: Negative for shortness of breath, cough, wheezing, and pleuritic chest pain, Back: Negative for injury and pain, MS/Extremity: Negative for injury and deformity, Skin: Negative for injury, rash, and discoloration, Neuro: Negative for headache, weakness, numbness, tingling, and seizure, Psych: Negative for depression, anxiety, suicide ideation, homicidal ideation, and hallucinations. 21:37 Abdomen/GI: Positive for abdominal cramps. 21:37 : Positive for vaginal bleeding, menstrual abnormality. Exam: 21:37 Constitutional: This is a well developed, well nourished patient who is awake, alert, snw and in no acute distress. Head/Face: Normocephalic, atraumatic. Eyes: Pupils equal round and reactive to light, extra-ocular motions intact. Lids and lashes normal. Conjunctiva and sclera are non-icteric and not injected. Cornea within normal limits. Periorbital areas with no swelling, redness, or edema. ENT: Nares patent. No nasal discharge, no septal abnormalities noted. Tympanic membranes are normal and external auditory canals are clear. Oropharynx with no redness, swelling, or masses, exudates, or evidence of obstruction, uvula midline. Mucous membranes moist. Neck: Trachea midline, no thyromegaly or masses palpated, and no cervical lymphadenopathy. Supple, full range of motion without nuchal rigidity, or vertebral point tenderness. No Meningismus. Chest/axilla: Normal chest wall appearance and motion. Nontender with no deformity. No lesions are appreciated. Cardiovascular: Regular rate and rhythm with a normal S1 and S2. No gallops, murmurs, or rubs. Normal PMI, no JVD. No pulse deficits. Respiratory: Lungs have equal breath sounds bilaterally, clear to auscultation and percussion. No rales, rhonchi or wheezes noted. No increased work of breathing, no retractions or nasal flaring. Back: No spinal tenderness. No costovertebral tenderness. Full range of motion. Skin: Warm, dry with normal turgor. Normal color with no rashes, no lesions, and no evidence of cellulitis. MS/ Extremity: Pulses equal, no cyanosis. Neurovascular intact. Full, normal range of motion. Neuro: Awake and alert, GCS 15, oriented to person, place, time, and situation. Cranial nerves II-XII grossly intact. Motor strength 5/5 in all extremities. Sensory grossly intact. Cerebellar exam normal. Normal gait. Psych: Awake, alert, with orientation to person, place and time. Behavior, mood, and affect are within normal limits. 21:37 Abdomen/GI: Inspection: abdomen appears normal, Bowel sounds: normal, Palpation: mild abdominal tenderness, in the suprapubic area, right upper quadrant and right lower quadrant. Vital Signs: 21:12 BP 116 / 68; Pulse 87; Resp 18; Pulse Ox 100% on R/A; Weight 58.97 kg (R); Height 5 ft. lp1 0 in. (152.40 cm); Pain 7/10; 21:26 BP 103 / 53; Pulse 73; Resp 18; Pulse Ox 100% ; Pain 8/10; ks7 22:08 BP 104 / 59; Pulse 61; Resp 16; Temp 98.2(O); Pulse Ox 100% on R/A; Pain 5/10; ks7 22:15 Resp 18; Pulse Ox 100% ; Pain 0/10; ks7 21:12 Body Mass Index 25.39 (58.97 kg, 152.40 cm) lp1 MDM: 21:14 Patient medically screened. snw 22:10 Data reviewed: vital signs, nurses notes. Data interpreted: Pulse oximetry: on room air snw is 100 %. Interpretation: normal. Counseling: I had a detailed discussion with the patient and/or guardian regarding: the historical points, exam findings, and any diagnostic results supporting the discharge/admit diagnosis, lab results, the need for outpatient follow up, to return to the emergency department if symptoms worsen or persist or if there are any questions or concerns that arise at home. Response to treatment: the patient's symptoms have mildly improved after treatment. Special discussion: Based on the history and exam findings, there is no indication for further emergent testing or inpatient evaluation. I discussed with the patient/guardian the need to see the OB Gyne specialist for further evaluation of the symptoms. I discussed with the patient/guardian the need to see the primary care provider for further evaluation of the symptoms. 06/16 21:22 Order name: Urine Dipstick--Ancillary (enter results); Complete Time: 22:11 [facility] 06/16 21:22 Order name: Urine --Ancillary (enter results); Complete Time: 22:11 [facility] 06/16 21:12 Order name: Urine Test (obtain specimen); Complete Time: 21:19 snw Administered Medications: 22:08 Drug: TORadol 30 mg Route: IM; Site: right deltoid; ks7 22:15 Follow up: Resp 18 bpm; Pulse Ox 100% ; Pain 0/10 Adult ks7 Disposition: 22:45 Co-signature as Attending Physician, Shaq Powell MD. rn Disposition: 06/16/20 22:02 Discharged to Home. Impression: Dysmenorrhea, unspecified. - Condition is Stable. - Discharge Instructions: Dysmenorrhea. - Prescriptions for Vitamin 27- 0.8 mg Oral Tablet - take 1 tablet by ORAL route once daily; 60 tablet. Diclofenac Sodium 75 mg Oral Tablet Sustained Release - take 1 tablet by ORAL route 2 times per day; 30 tablet. - Medication Reconciliation Form, Thank You Letter, Antibiotic Education, Prescription Opioid Use form. - Follow up: Emergency Department; When: As needed; Reason: Worsening of condition. Follow up: Private Physician; When: 2 - 3 days; Reason: Recheck today's complaints, Continuance of care, Re-evaluation by your physician. Signatures: Dispatcher [employer] EDMS Amelie Ye, INSTALLATIONS INSPECTOR-C INSTALLATIONS INSPECTOR-Csnw Shaq Powell MD MD rn Pena, Laura, RN RN lp1 Millie Coleman RN RN ks7 Corrections: (The following items were deleted from the chart) 22:14 22:02 06/16/2020 22:02 Discharged to Home. Impression: Dysmenorrhea, unspecified. ks7 Condition is Stable. Forms are Medication Reconciliation Form, Thank You Letter, Antibiotic Education, Prescription Opioid Use. Follow up: Emergency Department; When: As needed; Reason: Worsening of condition. Follow up: Private Physician; When: 2 - 3 days; Reason: Recheck today's complaints, Continuance of care, Re-evaluation by your physician. [facility] 22:14 22:14 06/16/2020 22:02 Discharged to Home. Impression: Dysmenorrhea, unspecified. ks7 Condition is Stable. Discharge Instructions: Dysmenorrhea. Prescriptions for Vitamin 27-0.8 mg Oral Tablet - take 1 tablet by ORAL route once daily; 60 tablet, Diclofenac Sodium 75 mg Oral Tablet Sustained Release - take 1 tablet by ORAL route 2 times per day; 30 tablet. and Forms are Medication Reconciliation Form, Thank You Letter, Antibiotic Education, Prescription Opioid Use. Follow up: Emergency Department; When: As needed; Reason: Worsening of condition. Follow up: Private Physician; When: 2 - 3 days; Reason: Recheck today's complaints, Continuance of care, Re-evaluation by your physician. ks7
[2020-06-16 22:04] LABS: Urine Blood NEGATIVE (NEG); Urine Glucose NEGATIVE (NEG); Urine Protein NEGATIVE (NEG); Urine Specific Gravity 1.015 (1.005-1.030); Urine pH 6.5 (5.0-7.0)
[2020-06-16] MEDS ORDERED: KETOROLAC 30 MG/ML INJ ONE (22:15)
[2020-06-16 22:24] VITALS: O2SAT 100
[2020-06-16 22:27] VITALS: BP 104/59; TEMP 98.2
== END 2020-06-16 22:14 | disposition home or self-care (01) ==
LOC: ER 20:57
DX: N94.6 Dysmenorrhea, unspecified (principal)
CPT/HCPCS: 81003; 81025; 96372; 99283

== ENCOUNTER 2020-11-27 14:53 | Emergency (ER) | payer OTHER, SELFPAY ==
--- OUTSIDE RECORDS SUMMARY | 2020-11-27 14:55 | XMS REPORT | Summary of Care ---
:2000 Author Organization [facility] Address [address] [place] [id number] Care Team Providers Name Role Phone Daina Glass Insurance Hmo Viry Lopez Primary Care Provider Reason for Visit Reason Comments STD Testing Encounter Details Date Type Department Care Team Description 10/25/2020 Office Visit [facility]- Anna Argueta, Ariel een for STD (sexually transmitted disease) (Primary Dx); [facility] Need for vaccination; [address] History of chlamydia [place] [address] [place], [place] [id number] [phone] Allergies No Known Allergiesdocumented as of this encounter (statuses as of 10/25/2020) Medications Medication Sig Dispensed Refills Start Date End Date Status SERTraline (ZOLOFT) Take 1 tablet 30 tablet 3 06/20/201810/25 Discontinued 50 mg by mouth tabletIndications: daily. depression norgestimate-ethinyl Take 1 tablet 4 Package 0 12/25/201906/2020 Discontinued estradiol by mouth (AUS-[id number]) daily. 0.18/0.215/0.25 mg-25 mcg tabletIndications: Encounter for initial prescription of contraceptive pills documented as of this encounter (statuses as of 10/25/2020) Active Problems Problem Noted Date Chlamydia trachomatis infection of lower genitourinary sites 12/28/2019 BMI 25.0-25.9,adult 12/25/2019 Screen for STD (sexually transmitted disease) 12/25/19 20 documented as of this encounter (statuses as of 10/25/2020) Resolved Problems Problem Noted Date Resolved Date Encounter for other general counseling or advice on 12/25/19 20 10/25/2020 contraception Well woman exam 12/25/2019 10/25/2020 Single liveborn delivered vaginally 2018 06/19/2018 39 weeks gestation of 05/15/2018 12/25/19 20 [place] contractions 02/21/2018 12/25/2019 Upper respiratory tract [...] as of this encounter (statuses as of 10/25/2020) Immunizations Name Administration Dates Next Due Influenza Virus Vaccine Quad .5 mL IM 6+ MO 10/25/2020 Influenza Virus Vaccine Quad IM 3+ YRS 11/22/2015 MMR 06/27/2016 TDAP 02/21/2018, 04/12/2016 Varicella (varivax)(chicken pox) 08/15/2016, 06/27/2016 documented as of this encounter Social History Tobacco Use Types Packs/Day Years Used Date Never Smoker Smokeless Tobacco: Never Used Alcohol Use Drinks/Week oz/Week Comments No 0 Standard drinks or equivalent 0.0 Sex Assigned at Date Recorded Not on file COVID-19 Exposure Response Date Recorded In the last month, have you been in contact with No / Unsure 10/25/2020 8:42 AM DIRECTOR INTERNAL CONTROL someone who was confirmed or suspected to have Coronavirus / COVID-19? documented as of this encounter Last Filed Vital Signs Vital Sign Reading Time Taken Comments Blood Pressure 115/78 10/25/2020 8:43 AM DIRECTOR INTERNAL CONTROL Pulse 86 10/25/2020 8:43 AM DIRECTOR INTERNAL CONTROL Temperature 36.3 C (97.4 F) 10/25/2020 8:43 AM DIRECTOR INTERNAL CONTROL Respiratory Rate 16 10/25/2020 8:43 AM DIRECTOR INTERNAL CONTROL Oxygen Saturation - - Inhaled Oxygen Concentration - - Weight 64.5 kg (142 lb 3 oz) 10/25/2020 8:43 AM DIRECTOR INTERNAL CONTROL Height 152.4 cm (5') 10/25/2020 8:43 AM DIRECTOR INTERNAL CONTROL Body Mass Index 27.77 10/25/2020 8:43 AM DIRECTOR INTERNAL CONTROL documented in this encounter Progress Notes Anna Argueta, MEDICAL OFFICE PROFESSIONAL INSTRUCTOR - 10/25/2020 8:30 AM CST Chief complaint: Chief Complaint Patient presents with STD Testing HPI Tiago Floyd is a 20 year old with history of chlamydia in 05/2020, requesting STD testing. She denies any current symptoms of STDs. Had odor in the past but resolved. Not currently on contraception, LMP beginning of September. Histories OB History Para Term AB Living 2 2 2 0 0 2 SAB TAB Ectopic Multiple Live Births 0 0 0 0 2 # Outcome Date GA Lbr West/2nd Weight Sex Delivery Anes PTL Lv 2 Term 05/15/18 [id number] 6 lb 2 oz (2.778 kg) [...] Financial resource strain: Not on file Food insecurity Worry: Not on file Inability: Not on file Transportation needs Medical: Not on file Non-medical: Not on file Tobacco Use Smoking status: Never Smoker Smokeless tobacco: Never Used Substance and Sexual Activity Alcohol use: No Alcohol/week: 0.0 standard drinks Drug use: No Sexual activity: Yes Partners: Male control/protection: None Comment: last intercourse 12/21/2019 Lifestyle Physical activity Days per week: Not on file Minutes per session: Not on file Stress: Not on file Relationships Social connections Talks on phone: Not on file Gets together: Not on file Attends roman catholic service: Not on file Active member of club or organization: Not on file Attends meetings of clubs or organizations: Not on file Relationship status: Not on file Intimate partner violence Fear of current or ex partner: Not on file Emotionally abused: Not on file Physically abused: Not on file Forced sexual activity: Not on file Other Topics Concern Not on file Social History Narrative Lives at home with 2 children Denies domestic violence or abuse No exposure to cats No roman catholic preference Social History Substance and Sexual Activity Sexual Activity Yes Partners: Male control/protection: None Comment: last intercourse 12/21/2019 Labs Labs are pending. Radiology No new radiology. Allergies Daisia has No Known Allergies. Medications Daisia currently has no medications in their medication list. Review of Systems Constitutional: Negative. HENT: Negative. Eyes: Negative. Respiratory: Negative. Breasts: Negative. Cardiovascular: Negative. Gastrointestinal: Negative. Genitourinary: Negative. Musculoskeletal: Negative. Skin: Negative. Neurological: Negative. Psychiatric/Behavioral: Negative. Endocrine: Endocrine negative BP 115/78 (BP Location: Right arm, Patient Position: Sitting, BP CUFF SIZE: Adult Medium) | Pulse 86 | Temp 36.3 C (97.4 F) (Oral) | Resp 16 | Ht 5' (1.524 m) | Wt 142 lb 3 oz (64.5 kg) | BMI27.77 kg/m Pregravid BMI: Could not be calculated Physical Exam Vitals reviewed. Constitutional: She is oriented to person, place, and time. She appears well- developed and well-nourished. Her body habitus is normal. Cardiovascular: Regular rate and rhythm. No murmur auscultated. Pulmonary/Chest: Breath sounds clear to auscultation. Normal inspiratory effort. Neuro/Psychiatric: She has a normal mood and affect. She is oriented to person, place, and time. Assessment/Plan 1. Screen for STD (sexually transmitted disease) Reviewed safe sex practices - GC & CHLAMYDIA AMPLIFIED ASSAY - HIV 1/2 AG-AB WITH REFLEX - [facility] ONLY - SYPHILIS IGG/IGM 2. Need for vaccination Administered today. VSS provided. - FLU VACC([id number]), 6+ MONTHS, IM, QUAD (FLUZONE/FLULAVAL/FLUARIX) 3. History of chlamydia - GC & CHLAMYDIA AMPLIFIED ASSAY Return to clinic in 8 weeks. Discussed treatment options. Reviewed patient instructions and provided printed copy. This visit did not involve counseling and coordination that comprised more than 50% of the visit time. CTOR INTERNAL CONTROL documented in this encounter Plan of Treatment Date Type Specialty Care Team Description 12/29/2020 Office Visit [facility] Anna Argueta FNP [address] [place], [place] [address] [phone] Name Type Priority Associated Diagnoses Date/Ti me GC & CHLAMYDIA LAB Routine Screen for STD (sexually 1 12/26/2019 9:01 AM DIRECTOR INTERNAL CONTROL AMPLIFIED ASSAY transmitted dise ase) History of chlamydia HIV 1/2 AG-AB WITH LAB Routine Screen for STD (sexual ly 10/25/2020 9:01 AM DIRECTOR INTERNAL CONTROL REFLEX transmitted disease) [facility] ONLY - SYPHILIS LAB Routine Screen for STD (sexu ally 10/25/2020 9:01 AM DIRECTOR INTERNAL CONTROL IGG/IGM transmitted disease) Health Maintenance Due Date Last Done Comments Depression Screening 12/25/2020 12/25/2019 HPV VACCINES (1 - 2-dose 12/25/2020 Postpon ed from series) 2011 (Refu sed) MENINGOCOCCAL B VACCINES (1 12/25/2020 Post poned from of 2 - Risk Bexsero 2-dose 05/16 (Insurance series) / Financial) CHLAMYDIA SCREENING 06/03/2021 06/03/2020, 12/25/2019, 12/25/2019, Additional history exists DTaP,Tdap,and Td Vaccines 02/22/2028 02/21/2018, 04/12/2016 (3 - Td) WELL CARE VISIT: - Discontinued 12/25/2019 YEARS (yearly) INFLUENZA VACCINE Completed 10/25/2020, 11/22/2015 MENINGOCOCCAL VACCINE Aged Out No longer eligible based on patient 's age to complete this topic PNEUMOCOCCAL 0-64 YEARS Aged Out No longe r eligible COMBINED SERIES based on patient 's age to complete this topic documented as of this encounter Procedures Procedure Name Priority Date/Time Associated Diagnosis Comme nts FLU VACC ([id number]), Routine 10/25/2020 8:51 AM DIRECTOR INTERNAL CONTROL Need for vaccination 6+ MONTHS, IM, QUAD documented in this encounter Results Not on filedocumented in this encounter Visit Diagnoses Diagnosis Screen for STD (sexually transmitted dis ease) - Primary Screening examination for venereal disea se Need for vaccination Need for prophylactic vaccination and in oculation against unspecified single disease History of chlamydia Personal history of other infectious and parasitic disease documented in this encounter Insurance Payer Benefit Plan Subscriber ID Effective Phone Address Typ e / Group Dates [facility] [id number] 2019-Prese [phone] Medicaid WOMEN [address] [place] [id number] 1 documented as of this encounter"
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
--- OUTSIDE RECORDS SUMMARY | 2020-11-27 14:55 | XMS REPORT | Summary of Care ---
:2000 Author Organization [facility] Address [address] [place] [address] Care Team Providers Name Role Phone Daina Glass Insurance Hmo Viry Lopez Primary Care Provider Reason for Visit Reason Comments STD Encounter Details Date Type Department Care Team Description 10/26/2020 Telephone [facility]- A Anna Riddle, WINE MANAGER STD [address] [facility] [address] [place] [address] [facility] [phone] [place], [place] [address] [phone] Allergies No Known Allergiesdocumented as of this encounter (statuses as of 10/26/2020) Medications Medication Sig Dispensed Refills Start Date End Date Status azithromycin Take 2 tablets 2 tablet 0 10/26/2020 10/26/2020 Active (ZITHROMAX) 500 mg by mouth once tabletIndications: now for 1 dose. Chlamydia trachomatis infection of lower genitourinary sites, Gonococcal infection (acute) of lower genitourinary tract documented as of this encounter (statuses as of 10/26/2020) Active Problems Problem Noted Date Gonococcal infection (acute) of lower genitourinary tr act 10/26/2020 Chlamydia trachomatis infection of lower genitourinary sites 12/28/2019 BMI 25.0-25.9,adult 12/25/2019 Screen for STD (sexually transmitted disease) 02/07/20 20 documented as of this encounter (statuses as of 10/26/2020) Resolved Problems Problem Noted Date Resolved Date Encounter for other general counseling or advice on 12/25/19 20 10/25/2020 contraception Well woman exam 12/25/2019 10/25/2020 Single liveborn delivered vaginally 2018 06/19/2018 39 weeks gestation of 05/15/2018 12/25/19 20 [place] contractions 02/21/2018 12/25/2019 Upper respiratory tract [...] Excessive weight gain during , third trimester 0803/201611/26/2017 Antepartum anemia in third trimester 04/13/201604/2016 pyelectasis 03/29/2016 11/26/2017 Supervision of high-risk of young primigravida 12/25/2019 Rubella non-immune status, antepartum 12/20/2015 Overview: Will need pp Susceptible to varicella (non-immune), currently 11/26/2017 Overview: Will need pp Obesity affecting in third trimester 11/25/2015 12/25/2019 Nausea and vomiting during prior to 22 weeks 11/2507/24/2016 gestation Supervision of high-risk of young primigravida, kala rsvan 11/22/2015 01/31/2016 trimester documented as of this encounter (statuses as of 10/26/2020) Immunizations Name Administration Dates Next Due Influenza [...] with No / Unsure 10/25/2020 8:42 AM RESCUE INSTRUCTOR someone who was confirmed or suspected to have Coronavirus / COVID-19? documented as of this encounter Last Filed Vital Signs Not on filedocumented in this encounter Miscellaneous Notes Telephone Encounter - Ирина Westbrook RN - 10/26/2020 4:30 PM RESCUE INSTRUCTOR Notified the patient of her positive STI results Chlamydia and Gonorrhea. Notified the patient her medication has been sent to her pharmacy on file. Educated patient she should complete the entire course, advised patient to practice safe sex practices and to remain abstinent for at least 1-2 weeks post treatment. Patient declines to have partner treated. States he was treated today. Patient scheduled for [place] for rocephin injection. Advised patient on HIV testing if she has not recently been tested. Advised GERARDO appointment in 3 months. Pt verbalized understanding. ИРИНА WESTBROOK RN 10/26/2020 4:31 PM UE INSTRUCTOR Telephone Encounter - Anna Argueta FNP - 10/26/2020 1:57 PM CSTPlease notify pt of (+) Chlamydia and gonorrhea. Rx sent to pharmacy on file and needs to RTC for a rocephin injection. Abstinence until patient and partner finish Abx and then for 1 week after. Expedited partner treatment per guidelines or partner to seek own testing and treatment. Safe sex practices. Please schedule for nurse visit for GERARDO in 3 months. documented in this encounter Plan of Treatment Date Type Specialty Care Team Description 10/27/2020 Nurse Visit [facility] Visit, Gonzalo Nurse 12/29/2020 Office Visit [facility] Anna Argueta FNP [address] [place], [place] [address] [phone] Health Maintenance Due Date Last Done Comments [...] CARE VISIT: 12- Discontinued 12/25/2019 YEARS (yearly) INFLUENZA VACCINE Completed [...] infection of lower genitourinary sites - Primary Gonococcal infection (acute) of lower ge nitourinary tract documented in this encounter Insurance Payer Benefit Plan Subscriber ID Effective Phone Address Typ e / Group Dates [facility] [id number] 2019-Prese [phone] Medicaid WOMEN nt [address] [place] [address] documented as of this encounter
--- OUTSIDE RECORDS SUMMARY | 2020-11-27 14:55 | XMS REPORT | Summary of Care ---
:2000 Author Organization [facility] Address [address] [place] [address] Care Team Providers Name Role Phone Daina Glass Insurance Hmo Viry Lopez Primary Care Provider Reason for Visit Reason Comments Treatment Encounter Details Date Type Department Care Team Description 10/27/2020 Nurse Visit [facility] Ciera Argueta, MOLDER PIPE COVERING [address] [place], [place] [phone] Gonorrhea (Primary Dx) [place] Visit, [facility] Nurse [address] [place] [address] Allergies No Known Allergiesdocumented as of this encounter (statuses as of 10/27/2020) Medications Hospital, Clinic, or Other Ordered Dose Route Frequency Start Date End Date Status Facility Administered Medication cefTRIAXone (ROCEPHIN) 250 mg IM ONCE 10/27/20202019 Ended injection 250 mg documented as of this encounter (statuses as of 10/27/2020) Active Problems Problem Noted Date Gonococcal infection (acute) of lower genitourinary tr act 10/26/2020 Chlamydia trachomatis infection of lower genitourinary sites 12/28/2019 BMI 25.0-25.9,adult 12/25/2019 Screen for STD (sexually transmitted disease) 12/25/19 20 documented as of this encounter (statuses as of 10/27/2020) Resolved Problems Problem Noted Date Resolved Date [...] as of this encounter (statuses as of 10/27/2020) Immunizations Name Administration Dates Next Due Influenza [...] been in contact with No / Unsure 10/27/2020 1:29 PM TUNNEL HEADING SUPERVISOR someone who was confirmed or suspected to have Coronavirus / COVID-19? documented as of this encounter Last Filed Vital Signs Vital Sign Reading Time Taken Comments Blood Pressure 116/73 10/27/2020 1:29 PM TUNNEL HEADING SUPERVISOR Pulse 84 10/27/2020 1:29 PM TUNNEL HEADING SUPERVISOR Temperature 36.9 C (98.4 F) 10/27/2020 1:29 PM TUNNEL HEADING SUPERVISOR Respiratory Rate 16 10/27/2020 1:29 PM TUNNEL HEADING SUPERVISOR Oxygen Saturation - - Inhaled Oxygen Concentration - - Weight 62.8 kg (138 lb 6.4 oz) 10/27/2020 1:29 PM TUNNEL HEADING SUPERVISOR Height 152.4 cm (5') 10/27/2020 1:29 PM TUNNEL HEADING SUPERVISOR Body Mass Index 27.03 10/27/2020 1:29 PM TUNNEL HEADING SUPERVISOR documented in this encounter Plan of Treatment Date Type Specialty Care Team Description 12/29/2020 Office Visit [facility] Anna Argueta, MOLDER PIPE COVERING [address] [place], [place] [address] [phone] 01/25/2021 Behavioral Instructor Visit [facility], [facility] Health Maintenance Due Date Last Done Comments Depression Screening 12/25/2020 12/25/2019 HPV VACCINES (1 - 2-dose 12/25/2020 Postpon ed from series) 2011 (Refu sed) MENINGOCOCCAL B VACCINES (1 12/25/2020 Post poned from of 2 - Risk Bexsero 2-dose 05/16 (Insurance series) / Financial) CHLAMYDIA SCREENING 10/25/2021 10/25/2020, 06/03/2020, 12/25/2019, Additional history exists DTaP,Tdap,and Td Vaccines [...] filedocumented in this encounter Visit Diagnoses Diagnosis Gonorrhea - Primary Gonococcal infection (acute) of lower ge nitourinary tract documented in this encounter Administered Medications Medication Order MAR Action Action Date Dose Rate Site cefTRIAXone (ROCEPHIN) Given 10/27/2020 1:43 PM 250 mg Right injection 250 mg TUNNEL HEADING SUPERVISOR Dorsogluteal-IM 250 mg, Intramuscular, ONCE, 1 dose, Debbi 10/27/20 at 1445, JULIA, Reason for Anti-Infective: Documented Infection, Documented Infection Site: Pelvic, Duration of Therapy: Other (see Comments) documented in this encounter Insurance Payer Benefit Plan Subscriber ID Effective Phone Address Typ e / Group Dates [facility] [id number] 2019-Prese [phone] Medicaid WOMEN nt [address] [place] [address] documented as of this encounter
--- OUTSIDE RECORDS SUMMARY | 2020-11-27 14:55 | XMS REPORT | Continuity of Care Document ---
:2000 Author Organization [facility] t Address [address] [place] [address] Care Team Providers Name Role Phone Visit, Nurse Attending Clinician Unavailable Flavia Montgomery Attending Clinician Problems This patient has no known problems. Allergies, Adverse Reactions, Alerts This patient has no known allergies or adverse reactions. Medications This patient has no known medications. Procedures This patient has no known procedures. Encounters Start End Encounter Admission Attending Care Care Encounter Source Date/Time Date/Time Type Type Clinicians Facility Department ID 2020-10-27 2020-10-27 Nurse Visit, [facility] [id number] 13:26:29 13:42:[facility] ARMED SECURITY PROFESSIONAL [id number] Nurse REGIONAL [id number] MATERNAL [id number] & CHILD 107 [facility] 2020-10-26 2020-10-26 Telephone RICHAR Argueta [id number] 00:00:00 00:00:00 Anna Alejandro ARMED SECURITY PROFESSIONAL [id number] REGIONAL [id number] MATERNAL [id number] & CHILD 107 [facility] 2020-10-25 2020-10-25 Office RICHAR Argueta [id number] 08:33:39 09:04:09 Visit Anna Alejandro ARMED SECURITY PROFESSIONAL [id number] REGIONAL [id number] MATERNAL [id number] & CHILD 107 [facility] Results This patient has no known results.
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
--- NOTE | 2020-11-27 15:34 | RAD REPORT ---
EXAM DESCRIPTION: RAD - Shoulder Right 2 View - 11/27/2020 3:28 pm CLINICAL HISTORY: PAIN COMPARISON: No comparisons FINDINGS: Slight widening and offsetting of the AC joint is noted which could indicate an AC joint s eparation. Advise correlation with clinical point tenderness in the region. Elsewhere, no fracture or dislocation seen.
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
[2020-11-27 16:06] VITALS: TEMP 98.2
[2020-11-27 16:08] VITALS: BP 96/63; O2SAT 99
== END 2020-11-27 16:02 | disposition home or self-care (01) ==
LOC: ER 14:53
DX: S43.51XA Sprain of right acromioclavicular joint, initial encounter (principal); V49.40XA Driver injured in collision with unspecified motor vehicles in traffic accident, initial encounter; F17.210 Nicotine dependence, cigarettes, uncomplicated
CPT/HCPCS: 70450; 71045; 72125; 99284

== ENCOUNTER 2022-02-19 18:31 | Emergency (ER) | payer OTHER ==
--- OUTSIDE RECORDS SUMMARY | 2022-02-19 18:36 | XMS REPORT | Continuity of Care Document ---
:2000 Author Organization [facility] t Address [address] [place] [address] Care Team Providers Name Role Phone IVY, Marilynn Primary Care Physician Unavailable ALEJANDRO Attending Clinician Unavailable Vernell DASILVA Attending Clinician Unavailable Alejandro GARIBAY Attending Clinician Vernell Dasilva MD Attending Clinician Pob, Lab Main Attending Clinician Unavailable Doctor Unassigned, Name Attending Clinician Unavailable Visit, Nurse Attending Clinician Unavailable Kendall [employer] SUPERVISOR, N Attending Clinician ADANA, L Admitting Clinician Unavailable Vernell Dasilva MD Admitting Clinician Payers Payer Name Policy Type Policy Number Effective Date Expiration Date [facility] [id number] 2021 00:00:00 Problems Condition Condition Condition Status Onset Resolution Last Treating Co mments Source Name Details Category Date Date Treatment Clinician Date 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 4 it y of ns during ns during 00:00: Néstor fuller 00 [facility] Liveborn Liveborn Disease Active Unive rs infant, of infant, of 401 it y of chang chang 00:00[place] , , 00 Me dical born in born in [facility] by vaginal by vaginal delivery delivery Acute Acute Disease Active 2021-1 Univers intractabl intractabl 1-10 it y of e e 00:00: [place] headache, headache, 00 Medi ellen unspecifie unspecifie Br anch d headache d headache type type Papanicola Papanicola Disease Active Overview : Univers ou smear ou smear 07-18 Formattin ity of of cervix of cervix 00:00: g of this [place] with low with low 00 note Medica l grade grade might be Branch squamous squamous different intraepith intraepith from the elial elial original. lesion lesion 06/2021 (LGSIL) (LGSIL) LGSIL, patient will have repeat pap smear in 3 years (routine screening ) Multiparit Multiparit Disease Active U nivers y y 06-26 ity of 00:00: [place] 00 [facility] History of History of Disease Active U nivers syphilis syphilis 06-26 ity of 00:00: [address] Overweight Overweight Disease Active U nivers (BMI (BMI 2-07 ity of 25.0-29.9) 25.0-29.9) [place] [facility] Branch Supervisio Supervisio Disease Active U nivers n of high n of high 1-09 ity of risk risk 00:00: [place] 00 Medi ellen in third in third Branch trimester trimester Allergies, Adverse Reactions, Alerts Allergy Allergy Status Severity Reaction(s) Onset Inactive Treating Comm ents Source Name Type Date Date Clinician No Known DA Active U [facility] 5-03 [facility] s 00:[facility] e [facility] NO KNOWN Drug Active Univers ALLERGIE Class ity of S [facility] Social History Social Habit Start Date Stop Date Quantity Comments Source ASSERTION 2021-06-04 [facility] 00:00:00 [facility] Alcohol intake 2022-02-16 2022-02-16 0 /d University 00:00:00 00:00:00 [facility] Tobacco use and 2021-06-26 2021-06-26 Never used Universit y of exposure 00:00:00 00:00:00 [facility] History of 2021-06-18 Cigarette Smoker Universi ty of tobacco use 00:00:00 [facility] Sex Assigned At 2000 2000 Universit y of 00:00:00 00:00:00 [facility] Smoking Status Start Date Stop Date Source Former smoker 2021-06-26 00:00:00 2021-06-26 00:00:00 [facility] Medications Ordered Filled Start Stop Current Ordering Indication Dosage Frequency Signature Comments Components Source Medication Medication Date Date Medication? Clinician (SIG) Name Name Yes [id number] 1{tbl} Take 1 Univers vitamin 4-02 102 tablet by ity of w/FA tablet 00:00: mouth [place] 00 daily. Medical Branch docusate Yes [id number] 240mg Take 1 Univers calcium 240 4- 102 capsule by it y of mg capsule 00:00: mouth [place] 00 daily as Medical needed for Branch Constipati on. ferrous Yes [id number] 325mg Take 1 Univers sulfate 325 4- 102 tablet by ity of mg (65 mg 00:00: mouth 2 [place] iron) 00 (two) Medical tablet times Branch daily. ibuprofen Yes [id number] 600mg Take 1 Univers 600 mg 4-02 102 tablet by ity of tablet 00:00: mouth [place] 00 every 6 Medical (six) Branch hours as needed (Pain). Take with food or milk. oxytocin No 10U 10 Units, Uni vers (PITOCIN) 4 04 Intramuscu ity of injection 19:26: 18:24 lar, ONCE, [place] 10 Units 00 :00 1 dose, On Medic al 02/16/22 Branch at 1430, Routine HYDROcodone Yes 1{tbl} 1 tablet, Univers -acetaminop 4 Oral, ity of hen (NORCO 18:42: Q6HPRN, [place] 5) 5-325 mg 39 Starting Medi ellen tablet 1 on Fri Branch tablet 02/16/22 at 1342, Until Discontinu ed, Routine, Pain (scale 7-10) ibuprofen Yes 600mg 600 mg, Univ ers (IBU) 4- Oral, ity of tablet 600 18:42: Q6HPRN, [place] mg 39 Starting Medical on Fri Branch 02/16/22 at 1342, Until Discontinu ed, Routine, Pain (scale 4-6) acetaminoph 2022-0 Yes 650mg 650 mg, Un laura en 4-01 Oral, ity of (TYLENOL) 18:42: Q6HPRN, [place] tablet 650 39 Starting Medic al mg on Fri Branch 02/16/22 at 1342, Until Discontinu ed, Routine, Pain (scale 1-3) diphenhydrA 0 Yes 25mg 25 mg, Univ ers MINE 4 Oral, ity of (BENADRYL) 18:42: Q6HPRN, [place] tablet 25 39 Starting Medica l mg on Fri Branch 02/16/22 at 1342, Until Discontinu ed, Routine, Sleep, Itching ondansetron 0 Yes 4mg 4 mg, Slow Univers (ZOFRAN 02-16 IV Push, ity of (PF)) 18:42: Q8HPRN, [place] injection 4 39 Starting Medi ellen mg on Sat Branch 02/16/22 at 1342, Until Discontinu ed, Routine, Nausea and Vomiting (N/V) magnesium 0 Yes 30mL 30 mL, Univer s hydroxide 02-16 Oral, ity of (MILK OF 18:42: QDAILYPRN, [place] as MAGNESIA) 39 Starting Medica l 400 mg/5 mL on Fri Branch suspension 02/16/22 at 30 mL 1342, Until Discontinu ed, Routine, Constipati on benzocaine- 0 Yes Topical, Un laura menthol 02-16 PRN, ity of (DERMOPLAST 18:42: [place] ) 20-0.5 % 39 on Fri Medical topical 02/16/22 at Branch spray 1342, Until Discontinu ed, Routine, Perineum discomfort ferrous 2021-0 Yes [id number] 325mg Take 1 Un laura sulfate 3-24 tablet by ity of (IRON, 00:00: mouth [place] FERROUS 00 daily. Medical SULFATE,) Branch 325 mg (65 mg iron) tablet ascorbic 0 Yes [id number] 500mg Take 1 U nivers acid, 3-24 tablet by ity of vitamin C, 00:00: mouth [place] 500 mg 00 daily. Medical tablet Branch ferrous 2021-0 2022- No [id number] 325mg Take 1 U nivers sulfate 3-24 04-02 tablet by ity of (IRON, 00:00: 00:00 mouth [place] FERROUS 00 :00 daily. Medical SULFATE,) Branch 325 mg (65 mg iron) tablet ascorbic 2021- No [id number] 500mg Take 1 Univers acid, 3-24 - tablet by ity of vitamin C, 00:00: 00:00 mouth [place] 500 mg 00 :00 daily. Medical tablet Branch Yes [id number] 1{packe Take 1 Univers vit 3-15 t} Packet by ity of 33-iron-fol 00:00: mouth [place] ic-dha 00 daily. Medical (SELECT-OB Branch + DHA) 29 mg iron-1 mg -250 mg combo pack Yes [id number] 1{packe Take 1 Univers vit 3-15 t} Packet by ity of 33-iron-fol 00:00: mouth [place] ic-dha 00 daily. Medical (SELECT-OB Branch + DHA) 29 mg iron-1 mg -250 mg combo pack Yes [id number] 1{packe Take 1 Univers vit 3-15 t} Packet by ity of 33-iron-fol 00:00: mouth [place] ic-dha 00 daily. Medical (SELECT-OB Branch + DHA) 29 mg iron-1 mg -250 mg combo pack Yes [id number] 1{packe Take 1 Univers vit 3-15 t} Packet by ity of 33-iron-fol 00:00: mouth [place] ic-dha 00 daily. Medical (SELECT-OB Branch + DHA) 29 mg iron-1 mg -250 mg combo pack Yes [id number] 1{packe Take 1 Univers vit 3-15 t} Packet by ity of 33-iron-fol 00:00: mouth [place] ic-dha 00 daily. Medical (SELECT-OB Branch + DHA) 29 mg iron-1 mg -250 mg combo pack Yes [id number] 1{packe Take 1 Univers vit 3-15 t} Packet by ity of 33-iron-fol 00:00: mouth [place] ic-dha 00 daily. Medical (SELECT-OB Branch + DHA) 29 mg iron-1 mg -250 mg combo pack Yes [id number] 1{packe Take 1 Univers vit 9-07 t} Packet by ity of 33-iron-fol 00:00: mouth [place] ic-dha 00 daily. Medical (SELECT-OB Branch + DHA) 29 mg iron-1 mg -250 mg combo pack 2022- No [id number] 1{packe Take 1 Univers vit 07-25 03-15 t} Packet by lotus of 33-iron-fol 00:00: 00:00 mouth Néstor fuller ic-dha 00 :00 daily. Medical (SELECT-OB Branch + DHA) 29 mg iron-1 mg -250 mg combo pack Immunizations Ordered Filled Immunization Date Status Comments [facility] e Immunization Name Name TD 2021-12-18 Completed University of 00:00:00 [facility] TDAP 2021-12-18 Completed University of 00:00:00 [facility] TDAP 2021-12-18 Completed University of 00:00:00 [facility] TDAP 2021-12-18 Completed University of 00:00:00 [facility] TDAP 2021-12-18 Completed University of 00:00:00 [facility] TDAP 2021-12-18 Completed University of 00:00:00 [facility] TDAP 2021-12-18 Completed University of 00:00:00 [facility] Influenza Virus 2020-10-25 Completed Universit y of Vaccine Quad .5 mL 00:00:00 [place] Medical IM 6+ MO Branch Influenza Virus 2020-10-25 Completed Universit y of Vaccine Quad .5 mL 00:00:00 [place] Medical IM 6+ MO Branch Influenza Virus 2020-10-25 Completed Universit y of Vaccine Quad .5 mL 00:00:00 [place] Medical IM 6+ MO Branch Influenza Virus 2020-10-25 Completed Universit y of Vaccine Quad .5 mL 00:00:00 [place] Medical IM 6+ MO Branch Influenza Virus 2020-10-25 Completed Universit y of Vaccine Quad .5 mL 00:00:00 [place] Medical IM 6+ MO Branch Influenza Virus 2020-10-25 Completed Universit y of Vaccine Quad .5 mL 00:00:00 [place] Medical IM 6+ MO Branch Influenza Virus 2020-10-25 Completed Universit y of Vaccine Quad .5 mL 00:00:00 [place] Medical IM 6+ MO Branch TDAP 2018-02-21 Completed University of 00:00:00 [facility] TDAP 2018-02-21 Completed University of 00:00:00 [facility] TDAP 2018-02-21 Completed University of 00:00:00 [facility] TDAP 2018-02-21 Completed University of 00:00:00 [facility] TDAP 2018-02-21 Completed University of 00:00:00 [facility] TDAP 2018-02-21 Completed University of 00:00:00 [facility] TDAP 2018-02-21 Completed University of 00:00:00 [facility] Varicella 2016-08-15 Completed University of (varivax)(chicken 00:00:00 [place] M edical pox) Branch Varicella 2016-08-15 Completed University of (varivax)(chicken 00:00:00 [place] M edical pox) Branch Varicella 2016-08-15 Completed University of (varivax)(chicken 00:00:00 [place] M edical pox) Branch Varicella 2016-08-15 Completed University of (varivax)(chicken 00:00:00 [place] M edical pox) Branch Varicella 2016-08-15 Completed University of (varivax)(chicken 00:00:00 [place] M edical pox) Branch Varicella 2016-08-15 Completed University of (varivax)(chicken 00:00:00 [place] M edical pox) Branch Varicella 2016-08-15 Completed University of (varivax)(chicken 00:00:00 [place] M edical pox) Branch MMR 2016-06-27 Completed University of 00:00:00 [facility] Varicella 2016-06-27 Completed University of (varivax)(chicken 00:00:00 [place] M edical pox) Branch MMR 2016-06-27 Completed University of 00:00:00 [facility] Varicella 2016-06-27 Completed University of (varivax)(chicken 00:00:00 [place] M edical pox) Branch MMR 2016-06-27 Completed University of 00:00:00 [facility] Varicella 2016-06-27 Completed University of (varivax)(chicken 00:00:00 [place] M edical pox) Branch MMR 2016-06-27 Completed University of 00:00:00 [facility] Varicella 2016-06-27 Completed University of (varivax)(chicken 00:00:00 [place] M edical pox) Branch MMR 2016-06-27 Completed University of 00:00:00 [facility] Varicella 2016-06-27 Completed University of (varivax)(chicken 00:00:00 [place] M edical pox) Branch MMR 2016-06-27 Completed University of 00:00:00 [facility] Varicella 2016-06-27 Completed University of (varivax)(chicken 00:00:00 [facility] edical pox) Branch MMR 2016-06-27 Completed University of 00:00:00 [facility] Varicella 2016-06-27 Completed University of (varivax)(chicken 00:00:00 [facility] edical pox) Branch TDAP 2016-04-12 Completed University of 00:00:00 [facility] TDAP 2016-04-12 Completed University of 00:00:00 [facility] TDAP 2016-04-12 Completed University of 00:00:00 [facility] TDAP 2016-04-12 Completed University of 00:00:00 [facility] TDAP 2016-04-12 Completed University of 00:00:00 [facility] TDAP 2016-04-12 Completed University of 00:00:00 [facility] TDAP 2016-04-12 Completed University of 00:00:00 [facility] Influenza Virus 2015-11-22 Completed Universit y of Vaccine Quad IM 3+ 00:00:00 [facility] Influenza Virus 2015-11-22 Completed Universit y of Vaccine Quad IM 3+ 00:00:00 [facility] Influenza Virus 2015-11-22 Completed Universit y of Vaccine Quad IM 3+ 00:00:00 [facility] Influenza Virus 2015-11-22 Completed Universit y of Vaccine Quad IM 3+ 00:00:00 [facility] Influenza Virus 2015-11-22 Completed Universit y of Vaccine Quad IM 3+ 00:00:00 [facility] Influenza Virus 2015-11-22 Completed Universit y of Vaccine Quad IM 3+ 00:00:00 [facility] Influenza Virus 2015-11-22 Completed Universit y of Vaccine Quad IM 3+ 00:00:00 [facility] Vital Signs Vital Name Observation Time Observation Value Comments Source Systolic blood 2022-02-17 17:45:00 120 mm[Hg] Univer sity of pressure [facility] Diastolic blood 2022-02-17 17:45:00 71 mm[Hg] Unive rsity of pressure [facility] Heart rate 2022-02-17 17:45:00 67 /min Universi ty of [facility] Body temperature 2022-02-17 17:45:00 36.83 Tanika Univ ersity of [facility] Respiratory rate 2022-02-17 17:45:00 16 /min Univ ersity of [facility] Oxygen saturation in 2022-02-17 17:45:00 100 /min [facility] Arterial blood by [facility] Pulse oximetry Branch Systolic blood 2022-02-15 18:09:00 116 mm[Hg] Univer sity of pressure [facility] Diastolic blood 2022-02-15 18:09:00 75 mm[Hg] Unive rsity of pressure [facility] Branch Heart rate 2022-02-15 18:09:00 74 /min Universi ty of [place] [facility] Respiratory rate 2022-02-15 18:09:00 18 /min Univ ersity of [facility] Body height 2022-02-15 18:09:00 152.4 cm Universi ty of [place] [facility] Body weight 2022-02-15 18:09:00 80.088 kg Universi ty of [place] [facility] BMI 2022-02-15 18:09:00 34.48 kg/m2 Universi ty of [place] [facility] Systolic blood 2022-02-06 13:40:00 106 mm[Hg] Univer sity of pressure [place] [facility] Diastolic blood 2022-02-06 13:40:00 70 mm[Hg] Unive rsity of pressure [facility] Heart rate 2022-02-06 13:40:00 79 /min Universi ty of [place] [facility] Body temperature 2022-02-06 13:40:00 36.56 Tanika Univ ersity of [facility] Respiratory rate 2022-02-06 13:40:00 18 /min Univ ersity of [facility] Body height 2022-02-06 13:40:00 152.4 cm Universi ty of [place] [facility] Body weight 2022-02-06 13:40:00 79.561 kg Universi ty of [place] [facility] BMI 2022-02-06 13:40:00 34.26 kg/m2 Universi ty of [place] [facility] Systolic blood 2022-01-30 18:09:00 104 mm[Hg] Univer sity of pressure [place] [facility] Diastolic blood 2022-01-30 18:09:00 68 mm[Hg] Unive rsity of pressure [facility] Branch Heart rate 2022-01-30 18:09:00 79 /min [facility] Body temperature 2022-01-30 18:09:00 36.61 Tanika [facility] Respiratory rate 2022-01-30 18:09:00 19 /min [facility] Body height 2022-01-30 18:09:00 152.4 cm [facility] Body weight 2022-01-30 18:09:00 80.967 kg [facility] BMI 2022-01-30 18:09:00 34.86 kg/m2 [facility] Procedures Procedure Date / Time Performed Performing Clinician Sourc e CBC WITH DIFF 2022-02-17 08:37:00 Adum, Gilead Vernell [facility] COVID-19 (ID NOW RAPID 2022-02-16 18:46:00 Adum, Sherri Matt [facility] TESTING) [facility] CBC WITH DIFF 2022-02-16 18:40:00 Adum, [facility] HEPATITIS B SURFACE 2022-02-16 18:40:00 Adum, Sherri Matt [facility] ANTIGEN [facility] ADC OR JUANPABLO ONLY - 2022-02-16 18:40:00 Adum, Sherri Matt [facility] RPR [facility] Branch HIV 1/2 AG-AB WITH 2022-02-16 18:40:00 Adum, Sherri Matt [facility] REFLEX [facility] HB ABO GROUPING 2022-02-16 18:39:00 Adum, Sherri [facility] CONSENT/REFUSAL FOR 2022-02-16 18:21:36 Doctor Unassigned, No [facility] DIAGNOSIS AND [facility] Medical Branch TREATMENT ASSIGNMENT OF BENEFITS 2022-02-16 18:21:12 Doctor Unassigned, No [facility] Name Medical Branch POCT URINALYSIS W/O 2022-02-15 18:11:00 Jeet Allen [facility] SPECIFIC GRAVITY [facility] POCT URINALYSIS W/O 2022-02-06 13:43:00 Jeet Allen [facility] SPECIFIC GRAVITY [facility] POCT URINALYSIS W/O 2022-01-30 18:13:00 Jeet Allen [facility] SPECIFIC GRAVITY Medical Branch DISCLOSURE AND 2022-01-30 05:01:00 Doctor Unassigned, No [facility] CONSENT, MEDICAL AND Name Medical Bra [facility] SURGICAL PROCEDURES GLUCOSE 1 HOUR POST 2021-12-19 22:24:00 Jeet Allen [facility] PRANDIAL [facility] CBC WITH DIFF 2021-12-19 22:24:00 [facility] RPR (QUANTITATIVE) 2021-12-19 22:24:00 Fish Jeet [facility] ADC OR JUANPABLO ONLY - 2021-12-19 22:24:00 Fish[facility] Branch HIV 1/2 AG-AB WITH 2021-12-19 22:24:00 [facility] REFLEX [facility] HB ABO GROUPING 2021-12-19 22:20:00 [facility] Encounters Start End Encounter Admission Attending Care Care Encounter Source Date/Time Date/Time Type Type Clinicians Facility Department ID 2022-02-22 2022-02-22 Outpatient R ALEJANDROAICHAN [facility] [id number] Univers 09:30:00 09:30:00 [id number] [facility] 2022-02-22 2022-02-22 Outpatient R ALEJANDRO JEET [facility] [id number] Univers 09:30:00 09:30:00 [facility] 2022-02-16 2022-02-17 Inpatient P RICHAR DASILVA KATHERIN [id number] Univers 13:21:00 18:00:00 SHERRI gautam [facility] 2022-02-16 2022-02-17 [facility] Jeet Allen [facility] [id number] Univers 13:21:00 18:00:00 Encounter Sherri Dasilva [id number] [facility] [id number] [facility] [id number] [place] [id number] Branch 2022-02-15 2022-02-15 Outpatient R ALEJANDRO JEET [facility] [id number] Univers 13:00:00 13:30:13 [facility]-02-152022-02-15 Routine Jeet Allen COINDRA BRICENO [id number] Univers 13:00:00 13:30:13 GRACIA [id number] i ty of Visit WOMEN'S 4.2.7.2.686 [facility] [id number] [address] 2022-02-15 2022-02-15 Outpatient R JEET ALLEN [facility] [id number] Univers 13:00:00 13:00:00 [id number] ity [facility] 2022-02-13 2022-02-13 Outpatient R JEET ALLEN [facility] [id number] Univers 10:00:00 10:00:00 [id number] ity [facility] 2022-02-13 2022-02-13 Outpatient R JEET ALLEN [facility] [id number] Univers 10:00:00 10:00:00 ity [facility] 2022-02-08 2022-02-08 [employer] Adeola [facility] Main [facility] 1.2.8 40.114 [id number] Univers 09:30:00 09:45:00 Visit Jeet Allen [id number] [facility] 4.2.7.2.686 [facility] [id number] Ia dical [address] 2022-02-08 2022-02-08 Outpatient R [facility] [id number] Univers 09:30:00 09:30:00 [id number] ity [facility] 2022-02-08 2022-02-08 Outpatient R JEET ALLEN [facility] [id number] Univers 09:30:00 09:30:00 ity [facility] 2022-02-06 2022-02-06 Outpatient R JEET ALLEN [facility] [id number] Univers 08:15:00 08:55:07 ity [facility] 2022-02-06 2022-02-06 Routine Jeet Allen [facility] BRICENO [id number] Univers 08:15:00 08:55:07 GRACIA [id number] i ty of Visit [place] 4.2.7.2.686 [place] [facility] [id number] [address] 2022-02-06 2022-02-06 Outpatient R JEET ALLEN [facility] [id number] Univers 08:15:00 08:15:00 [id number] ity [facility] 2022-01-30 2022-01-30 Outpatient R JEET ALLEN [facility] [id number] Univers 13:00:00 14:13:53 ity [facility] 2022-01-30 2022-01-30 Routine Jeet Allen [facility] [id number] Univers 13:00:00 14:13:53 GRACIA 350.1.13.10 i ty of Visit [place] 4.2.7.2.686 [place] [id number] [address] 2022-01-30 2022-01-30 Orders Doctor GRACE 1.2.840.114 [id number] Univers 00:00:00 00:00:00 Only Unassigned, RONA 350.1.13.10 ity of [place] [facility] 4.2.7.2.686 [place] as [id number] [place] [address] Branch 2021-12-19 2021-12-19 [employer] Adeola Davis Lab Main [facility] 1.2.8 40.114 [id number] Univers 15:15:00 15:30:00 Visit Jeet [facility] [id number] [place]y of [place] 4.2.7.2.686 [place] [id number] Ia dical NAL [address] [place] [address] 2020-10-27 2020-10-27 Nurse Visit, [facility] 1.2.840.114 [id number] 13:26:29 13:42:30 Visit Donnie-Rmchp BUSINESS EDUCATION TEACHER [id number] Nurse REGIONAL [id number] MATERNAL [phone] & CHILD 107 [facility] 2020-10-26 2020-10-26 Telephone Kendall [facility] [id number] 00:00:00 00:00:00 Anna Alejandro BUSINESS EDUCATION TEACHER [id number] REGIONAL [id number] MATERNAL [phone] & CHILD 107 [facility] 2020-10-25 2020-10-25 [facility] [id number] 08:33:39 09:04:09 Visit Anna Flavia BUSINESS EDUCATION TEACHER [id number] [facility] [id number] MATERNAL [phone] & CHILD 107 [facility] Results Test Description Test Time Test Comments Results Result Comments Source CBC WITH DIFF 2022-02-17 09:41:16 Test Item Value Reference Range Interpretation Comme nts WBC (test code = 6690-2) See_Comment H [A utomated message] The system which ge nerated this result transmit emilee reference range: 4.30 - 1 1.10 10*3/?L. The reference r michael was not used to interpr et this result as normal/abnor mal. RBC (test code = 789-8) See_Comment L [Au tomated message] The system which ge nerated this result transmit emilee reference range: 3.93 - 5 .25 10*6/?L. The reference r michael was not used to interpr et this result as normal/abnor mal. HGB (test code = 718-7) 10.8 g/dL 11.6-15.0 L HCT (test code = 4544-3) 32.5 % 35.7-45.2 L MCV (test code = 787-2) 83.8 fL 80.6-95.5 MCH (test code = 785-6) 27.8 pg 25.9-32.8 MCHC (test code = 786-4) 33.2 g/dL 31.6-35.1 RDW-SD (test code = 59032-2) 42.4 fL 39.0-49.9 RDW-CV (test code = 788-0) 14.2 % 12.0-15.5 PLT (test code = 777-3) See_Comment [Au tomated message] The system which ge nerated this result transmit emilee reference range: 166 - 35 8 10*3/?L. The reference range was not used to interpret th is result as normal/abnormal . MPV (test code = 21668-9) 11.2 fL 9.5-12.9 NRBC/100 WBC (test code = See_Comment [ Automated message] The 9300244842) system which Findersfee nerated this result transmit emilee reference range: 0.0 - 10 .0 /100 WBCs. The reference r michael was not used to interpr et this result as normal/abnor mal. NRBC x10^3 (test code = <0.01 See_Comment [Au tomated message] The 8617151778) system which Findersfee nerated this result transmit emilee reference range: 10*3/?L. The reference range was not u sed to interpret this result as normal/abnormal . GRAN MAT (NEUT) % (test code 67.5 % = 770-8) IMM GRAN % (test code = 1.70 % 8237910343) LYMPH % (test code = 736-9) 24.2 % MONO % (test code = 5905-5) 5.4 % EOS % (test code = 713-8) 0.8 % BASO % (test code = 706-2) 0.4 % GRAN MAT x10^3(ANC) (test 8.94 10*3/uL 1.88-7.09 H code = 3103511096) IMM GRAN x10^3 (test code = 0.23 10*3/uL 0.00-0.06 H [id number]) LYMPH x10^3 (test code = 3.21 10*3/uL 1.32-3.29 731-0) MONO x10^3 (test code = 0.72 10*3/uL 0.33-0.92 742-7) EOS x10^3 (test code = 0.11 10*3/uL 0.03-0.39 711-2) BASO x10^3 (test code = 0.05 10*3/uL 0.01-0.07 704-7) Lab Interpretation (test Abnormal code = 80667-7) [facility] MARCELO HEBERT - [id number] 08:02:19 Test Item Value Reference Range Interpretation Comments RPR (Qualitative) (test code = Nonreactive Nonreactive 18255-0) Lab Interpretation (test code = Normal 53252-9) [facility] B Surface [id number] 23:34:55 Test Item Value Reference Range Interpretation Comments HBsAg Semi-Quantitative (test code = Negative Negative 5195-3) [facility]/2 AG-AB WITH [id number] 20:23:55 Test Item Value Reference Range Interpretation Comments HIV Negative Negative Semi-quantitative (test code = 82768-8) LUCIANO (test code = Non-reactive for HIV-1 LUCIANO) antigen and HIV-1/HIV-2 antibodies. ?No laboratory evidence of HIV infection. ?Repeat in 2-4 weeks if acute HIV infection is suspected. [facility]aleType and Screen - ONCE [id number] 20:14:47 Test Item Value Reference Range Interpretation Comments ABO & RH (test code O Positive Performe d at [facility] = 20) [facility] Blood Bank1 [address] [place], [place] [address]Toll Free: [phone] A No. [id number] IAT (test code = Negative Performed a t [facility] 1185) [facility] Blood [facility] [place], [place] [address]Toll Free: [phone] A No. [id number] [facility]aleCBC with [id number] 19:03:13 Test Item Value Reference Range Interpretation Comments WBC (test code = See_Comment [Automated 1413-2) message] The sy stem which generated this result transmitted reference range : 4.30 - 11.10 10*3/?L. The reference range was not used to interpret this result as normal/abnormal . RBC (test code = See_Comment [Automated 291-8) message] The sy stem which generated this result transmitted reference range : 3.93 - 5.25 10*6/?L. The reference range was not used to interpret this result as normal/abnormal . HGB (test code = 12.4 g/dL 11.6-15.0 718-7) HCT (test code = 38.7 % 35.7-45.2 4544-3) MCV (test code = 84.9 fL 80.6-95.5 787-2) MCH (test code = 27.2 pg 25.9-32.8 785-6) MCHC (test code = 32.0 g/dL 31.6-35.1 786-4) RDW-SD (test code = 43.3 fL 39.0-49.9 10631-8) RDW-CV (test code = 14.2 % 12.0-15.5 788-0) PLT (test code = See_Comment [Automated 777-3) message] The sy stem which generated this result transmitted reference range : 166 - 358 10*3/ ?L. The reference r michael was not used to interpret this result as normal/abnormal . MPV (test code = 10.8 fL 9.5-12.9 22861-0) NRBC/100 WBC (test See_Comment [Automat ed code = 6400199380) message] The system which generated this result transmitted reference range : 0.0 - 10.0 /100 WBCs. The refer ence range was not u sed to interpret th is result as normal/abnormal . NRBC x10^3 (test code <0.01 See_Comment [Auto mated = 3591610194) message] The s ystem which generated this result transmitted reference range : 10*3/?L. The reference range was not used to interpret this result as normal/abnormal . GRAN MAT (NEUT) % 63.0 % (test code = 770-8) IMM GRAN % (test code 1.50 % = 7274093846) LYMPH % (test code = 29.2 % 736-9) MONO % (test code = 4.7 % 5905-5) EOS % (test code = 1.1 % 713-8) BASO % (test code = 0.5 % 706-2) GRAN MAT x10^3(ANC) 6.52 10*3/uL 1.88-7.09 (test code = 5113860640) IMM GRAN x10^3 (test 0.16 10*3/uL 0.00-0.06 H code = 3309904360) LYMPH x10^3 (test code 3.02 10*3/uL 1.32-3.29 = 731-0) MONO x10^3 (test code 0.49 10*3/uL 0.33-0.92 = 742-7) EOS x10^3 (test code = 0.11 10*3/uL 0.03-0.39 711-2) BASO x10^3 (test code 0.05 10*3/uL 0.01-0.07 = 704-7) Lab Interpretation Abnormal (test code = 47232-6) [facility] URINALYSIS W/O SPECIFIC [id number] 18:12:00 Test Item Value Reference Range Interpretation Comments POCT PH U (test code = 3254) n/a 5-8 POCT U LEUK EST (test code = n/a Negative - Negative 3263) POCT U NIT (test code = 3262) n/a Negative - Negative POCT U PROT (test code = 3259) negative Negative - Negative POCT U GLU (test code = 3256) negative Negative - Negative POCT U KETONE (test code = 3258) n/a Negative - Negative POCT U BLD (test code = 3257) n/a Negative - Negative Lab Interpretation (test code = Normal 45747-9) [facility] URINALYSIS W/O SPECIFIC [id number] 13:43:00 Test Item Value Reference Range Interpretation Comments POCT PH U (test code = 3254) n/a 5-8 POCT U LEUK EST (test code = n/a Negative - Negative 3263) POCT U NIT (test code = 3262) n/a Negative - Negative POCT U PROT (test code = 3259) Negative Negative - Negative POCT U GLU (test code = 3256) Negative Negative - Negative POCT U KETONE (test code = 3258) n/a Negative - Negative POCT U BLD (test code = 3257) n/a Negative - Negative [facility] URINALYSIS W/O SPECIFIC [id number] 18:13:00 Test Item Value Reference Range Interpretation Comments POCT PH U (test code = 3254) n/a 5-8 POCT U LEUK EST (test code = n/a Negative - Negative 3263) POCT U NIT (test code = 3262) n/a Negative - Negative POCT U PROT (test code = 3259) negative Negative - Negative POCT U GLU (test code = 3256) negative Negative - Negative POCT U KETONE (test code = 3258) n/a Negative - Negative POCT U BLD (test code = 3257) n/a Negative - Negative Lab Interpretation (test code = Normal 94403-7) [facility]aleRPR (QUANTITATIVE)2021-12-20 20:47:34 Test Item Value Reference Range Interpretation Comments RPR (Quantitative) (test code = 1:1 Nonreactive A 08831-4) Lab Interpretation (test code = Abnormal 61169-3) [facility]alePRENATAL WORKUP, BLOOD [id number] 10:37:05 Test Item Value Reference Range Interpretation Comments ABO & RH (test code O POSITIVE Performe d at [facility] = 20) [facility] Blood [facility]3 [address] [facility] [place] [address]Npdo Free: [phone] A No. [id number] IAT (test code = Negative Performed a t [facility] 1185) [facility] Blood [facility] [address] [facility] s [address]Iskm Free: [phone] A No. [id number] [facility]aleHIV 1/2 AG-AB WITH [id number] 10:13:00 Test Item Value Reference Range Interpretation Comments HIV Negative Negative Semi-quantitative (test code = 55204-1) LUCIANO (test code = Non-reactive for HIV-1 LUCIANO) antigen and HIV-1/HIV-2 antibodies. ?No laboratory evidence of HIV infection. ?Repeat in 2-4 weeks if acute HIV infection is suspected. [facility] OR JUANPABLO ONLY - [id number] 07:21:29 Test Item Value Reference Range Interpretation Comments RPR (Qualitative) (test code = Nonreactive Nonreactive 77169-5) Lab Interpretation (test code = Normal 60940-1) [facility] WITH [id number] 00:29:38 Test Item Value Reference Range Interpretation Comments WBC (test code = See_Comment [Automated 4373-2) message] The sy stem which generated this result transmitted reference range : 4.30 - 11.10 10*3/?L. The reference range was not used to interpret this result as normal/abnormal . RBC (test code = See_Comment [Automated 789-8) message] The sy stem which generated this result transmitted reference range : 3.93 - 5.25 10*6/?L. The reference range was not used to interpret this result as normal/abnormal . HGB (test code = 11.8 g/dL 11.6-15.0 718-7) HCT (test code = 34.7 % 35.7-45.2 L 4544-3) MCV (test code = 86.3 fL 80.6-95.5 787-2) MCH (test code = 29.4 pg 25.9-32.8 785-6) MCHC (test code = 34.0 g/dL 31.6-35.1 786-4) RDW-SD (test code = 41.6 fL 39.0-49.9 83208-0) RDW-CV (test code = 13.2 % 12.0-15.5 788-0) PLT (test code = See_Comment [Automated 777-3) message] The sy stem which generated this result transmitted reference range : 166 - 358 10*3/ ?L. The reference r michael was not used to interpret this result as normal/abnormal . MPV (test code = 9.9 fL 9.5-12.9 81894-5) NRBC/100 WBC (test See_Comment [Automat ed code = 7245975429) message] The system which generated this result transmitted reference range : 0.0 - 10.0 /100 WBCs. The refer ence range was not u sed to interpret th is result as normal/abnormal . NRBC x10^3 (test code <0.01 See_Comment [Auto mated = 0648261421) message] The s ystem which generated this result transmitted reference range : 10*3/?L. The reference range was not used to interpret this result as normal/abnormal . SEG % (test code = 68 % 33-76 60523-3) BAND % (test code = 1 % 0-1 25889-2) META % (test code = 1 % See_Comment H [Automa emilee 47525-8) message] The sy stem which generated this result transmitted reference range : <=0. The refere nce range was not u sed to interpret th is result as normal/abnormal . LYMPH % (test code = 25 % 14-54 86035-1) MONO % (test code = 2 % 0-4 74665-3) EOS % (test code = 1 % 0-3 13182-4) BASO % (test code = 2 % 0-1 H 41980-2) ANC (test code = 6.91 10*3/uL 1.88-7.09 753-4) TOXIC CHANGES (test Present A code = 803-7) Lab Interpretation Abnormal (test code = 84190-8) [facility]aleGLUCOSE 1 HOUR POST [id number] 23:17:07 Test Item Value Reference Range Interpretation Comments GLUC 1 HR (test code = 3779871532) 122 mg/dL 120-170 Lab Interpretation (test code = Normal 86238-9) [facility]aleURINALYSIS [id number] 23:19:00 Test Item Value Reference Range Interpretation Comments UA COLOR (test code = YELLOW YELLOW COLU) UA APPEARANCE (test code CLEAR CLEAR = APPU) UA GLUCOSE DIPSTICK (test NEGATIVE mg/dL NEGATIVE code = DGLUU) UA BILIRUBIN DIPSTICK NEGATIVE mg/dL NEGATIVE (test code = BILU) UA KETONE DIPSTICK (test NEGATIVE mg/dL NEGATIVE code = KETU) UA SPECIFIC GRAVITY (test 1.031 1.001-1.035 code = SGU) UA BLOOD DIPSTICK (test 0.5 mg/dL (2+) mg/dL NEGATIVE A code = TAURUS) UA PH DIPSTICK (test code 6.0 5.0-8.0 = OLMAN) UA PROTEIN DIPSTICK (test 10 (Trace) mg/dL NEGATIVE A code = PROU) UA UROBILINIOGEN DIPSTICK 3.0 (1+) mg/dL NEGATIVE A (test code = URO) UA NITRITE DIPSTICK (test NEGATIVE NEGATIVE code = KHUSHBU) UA LEUKOCYTE ESTERASE W NEGATIVE Vania/uL NEGATIVE REFLEX (test code = LEUUR) UA WBC (test code = WBCU) 0-5 per HPF 0-5 UA RBC (test code = RBCU) 51-100 #/HPF 0-5 UA EPITHELIAL CELLS (test FEW per HPF FEW code = EPIU) UA BACTERIA (test code = FEW #/HPF NONE A BACU) UA MUCUS (test code = FEW #/LPF FEW MUCU) Urine Source? Clean CatchBASIC METABOLIC [id number] 22:39:00 Test Item Value Reference Range Interpretation Comments SODIUM (test code = 141 mmol/L 136-145 N NA) POTASSIUM (test code 4.0 mmol/L 3.5-5.1 N = K) CHLORIDE (test code = 107.0 mmol/L 98-107 N CL) CARBON DIOXIDE (test 28.0 mmol/L 21-32 N code = CO2) ANION GAP (test code 10.0 10-20 N = GAP) GLUCOSE (test code = 86 mg/dL 74-106 N GLU) BLOOD UREA NITROGEN 14 mg/dL 7-18 N (test code = BUN) GLOMERULAR FILTRATION > 60 mL/min >=60 Estima emilee GFR by RATE (test code = using Femi fied MDRD GFR) formula.Chronic kidney disease is defined as eith er kidney damageor GFR <60 mL/min/1.73 m2 for >3 months. CREATININE (test code 0.70 mg/dL 0.55-1.02 N Note change in = CREAT) reference range due to change in reagent. BUN/CREATININE RATIO 20.0 10-20 N (test code = BUN/CREA) CALCIUM (test code = 8.9 mg/dL 8.5-10.1 N CA) HCG SERUM [id number] 22:39:00 Test Item Value Reference Range Interpretation Comments HCG SERUM BETA < 1.0 mIU/mL 0-3 N INTERPRETATIO N:B-HCG (test code = HCG) LEVELS <5 SHOULD BE CONSIDERED "NEGATIVE." *WH EN BODERLINE RESUL TS ARE ENCOUNTERED,PAT IENT SAMPLESSHOULD B E REDRAWN 48 HOURS. 0-1 WEEKS AFTER CONCEPTIO N 5-50 MIU/ML1-2 WEEKS AFTER CONCEPTION 50-500 MIU/ ML2-3 WEEKS AFTER CON CEPTION 100 - 5,000 MIU/ML3-4 WEEKS AFTER CONCEPTION 500-10,000 MIU /ML4-5 WEEKS AFTER CON CEPTION 1000 -50 ,000 MIU/ML5-6 WEEKS AFTER CONCEPTION 10,000-100,000 MIU/ML6-8 WEEKS AFTER CONCEPTION 15,000- 200,000 MIU/ML2-3 MONTH S AFTER CONCEPTION 10,000-100,000 MIU/ML - DUP AB/PEL/SC [id number] 22:36:00 Name: ALKA MOLINA V [facility] : 2000 Age/S: 18 / F Carly Yoo Unit #: [id number] Loc: J[place]ENC[place] Sainz [address] Phys: Jeet Herrmann NP Acct: [id number] Dis Date: Status: REG ER PHONE #: [phone] Exam Date: 03/20/20192215 FAX #: [phone] Reason: PELVIC PAIN EXAMS: CPT CODE: [id number] DUP AB/PEL/SC COMP 43574 REASON FOR EXAM: VAGINAL BLEEDING/PELVIC PAIN EXAM ORDER DATE: 03/20/2019 9:42 PM Attending Rosi: Jeet Herrmann NP PROCEDURE: - US PELVIS COMPLETE, [...] and signed by: Leonel Rodgers M.D. CC: Jeet Herrmann NP Technologist: Anat Barroso RDMS Trnscb Date/Time: 03/20/2019 (2235) [place] Orig Print D/T: S: 03/20/2019 (2239) Probe: PAGE 1 Signed Report- US TRANSVAGINAL NON [id number] 22:36:00 [facility] 2000 Age/S: 18 / F Carly Yoo Unit #: [id number] Loc: JUVENCIO Sainz [address] Phys: Jeet Herrmann NP Acct: [id number] Dis Date: Status: REG ER PHONE #: [phone] Exam Date: 03/20/20192215 FAX #: [phone] Reason: VAGINALBLEEDING/PELVIC PAIN EXAMS: CPTCODE: [id number] [place] [address] REASON FOR EXAM: VAGINAL BLEEDING/PELVIC PAIN EXAM ORDER DATE: 03/20/2019 9:42 PM Attending Rosi: Jeet Herrmann NP PROCEDURE: - US PELVIS COMPLETE, [...] and signed by: Leonel Rodgers M.D. CC: Jeet Herrmann NP Technologist: Anat Barroso RDMS Trnscb Date/Time: 03/20/2019 (2235) [place] [facility] Print D/T: S: 03/20/2019 (2238) Probe: [id number] PAGE 1 Signed Report- US PELVIS [id number] 22:36:00 Name: ALKA MOLINA V [facility] : 2000 Age/S: 18 / F Carly Yoo Unit #: [id number] Loc: JUVENCIO Sainz [address] Phys: Jeet Herrmann NP Acct: [id number] Dis Date: Status: REG ER PHONE #: [phone] Exam Date: 03/20/20192215 FAX #: [phone] Reason: VAGINALBLEEDING/PELVIC PAIN EXAMS: CPTCODE: [id number] US PELVIS COMPLETE 11036 REASON FOR E XAM: VAGINAL BLEEDING/PELVIC PAIN EXAM ORDER DATE: 03/20/2019 9:42 PM Attending Rosi: Jeet Herrmann NP PROCEDURE: - US PELVIS COMPLETE, [...] and signed by: Leonel Rodgers M.D. CC: Jeet Herrmann NP Technologist: Anat Barroso RDMS Trnscb Date/Time: 03/20/2019 (2235) [place] [facility] Print D/T: S: 03/20/2019 (2238) Probe: PAGE 1 Signed ReportBASI METABOLIC [id number] 22:30:00 Test Item Value Reference Range Interpretation Comments SODIUM (test code = NA) 141 mmol/L 136-145 N POTASSIUM (test code = K) 4.0 mmol/L 3.5-5.1 N CHLORIDE (test code = CL) 107.0 mmol/L 98-107 N CARBON DIOXIDE (test code = CO2) mmol/L 21-32 ANION GAP (test code = GAP) 10-20 GLUCOSE (test code = GLU) mg/dL 74-106 BLOOD UREA NITROGEN (test code = mg/dL 7-18 BUN) GLOMERULAR FILTRATION RATE (test mL/min >=60 code = GFR) CREATININE (test code = CREAT) mg/dL 0.55-1.02 BUN/CREATININE RATIO (test code 10-20 = BUN/CREA) CALCIUM (test code = CA) mg/dL 8.5-10.1 HCG SERUM [id number] 22:30:00 Test Item Value Reference Range Interpretation Comments HCG SERUM BETA (test code = HCG) mIU/mL 0-3 CBC W/O [id number] 22:27:00 Test Item Value Reference Range Interpretation Comments WHITE BLOOD CELL (test code = 8.9 K/mm3 4.5-12.5 N WBC) RED BLOOD CELL (test code = 4.83 mill/mm3 3.7-5.2 N RBC) HEMOGLOBIN (test code = HGB) 13.8 gram/dL 11.5-15.5 N HEMATOCRIT (test code = HCT) 41.7 % 36.0-46.0 N MEAN CELL VOLUME (test code = 86.3 fL 80-98 N MCV) MEAN CELL HGB (test code = MCH) 28.6 picogram 27.0-33.0 N MEAN CELL HGB CONCETRATION 33.1 gram/dL 33.0-36.0 N (test code = MCHC) RED CELL DISTRIBUTION WIDTH 13.2 % 11.6-16.2 N (test code = RDW) PLATELET COUNT (test code = 328 K/mm3 150-450 N PLT) MEAN PLATELET VOLUME (test code 9.8 fL 6.7-11.0 N = MPV) CBC W/O [id number] 22:13:00 Test Item Value Reference Range Interpretation Comments WHITE BLOOD CELL (test code = K/mm3 4.5-12.5 WBC) RED BLOOD CELL (test code = RBC) mill/mm3 3.7-5.2 HEMOGLOBIN (test code = HGB) 13.8 gram/dL 11.5-15.5 N HEMATOCRIT (test code = HCT) 41.7 % 36.0-46.0 N MEAN CELL VOLUME (test code = fL 80-98 MCV) MEAN CELL HGB (test code = MCH) picogram 27.0-33.0 MEAN CELL HGB CONCETRATION (test gram/dL 33.0-36.0 code = MCHC) RED CELL DISTRIBUTION WIDTH % 11.6-16.2 (test code = RDW) PLATELET COUNT (test code = PLT) K/mm3 150-450 MEAN PLATELET VOLUME (test code fL 6.7-11.0 = MPV)
[2022-02-19 19:19] LABS: Urine Blood 3+ (Negative); Urine Glucose Negative (Negative); Urine Protein Trace (Negative)
--- NOTE | 2022-02-19 19:51 | RAD REPORT ---
EXAM DESCRIPTION: US - Transvaginal Study Probe - 02/19/2022 7:34 pm CLINICAL HISTORY: Pelvic pain COMPARISON: none FINDINGS: The uterus measures 15 x 10 x 11cm. A fibroid is not seen. The endometrial stripe measures 2.2 centimeters and is mildly inhomogeneous. The left ovary is normal in size and echotexture. Right ovary not seen secondary to overlying bowel g as. No significant free fluid is seen. IMPRESSION: Endometrial stripe measures 2.2 centimeters and is mildly inhomogeneous. This is nonspec ific and may be a normal endometrium. Retained products of conception can also have this a ppearance
[2022-02-19] MEDS ORDERED: FLUORESCEIN SODIUM 1 MG/WRAP ONE (19:53)
[2022-02-19] MEDS ORDERED: TETRACAINE HCL 0.5% 4ML OPTH ONE (19:53)
[2022-02-19 19:54] LABS: Urine Bacteria <20 /HPF (<20); Urine RBC <5 /HPF (NONE SEEN)
[2022-02-19] MEDS ORDERED: MORPHINE 4 MG/ML SYR ONE (21:17)
[2022-02-19] MEDS ORDERED: ONDANSETRON 4 MG/2 ML VIAL ONE (21:17)
[2022-02-19] MEDS ORDERED: NA CHLORIDE 0.9% 1,000 ML ONE (21:17)
[2022-02-19 21:35] LABS: Absolute Lymphocytes (CBC) 1.2 K/uL (0.7-4.9); Hematocrit 33.4 % (36.0-45.0); Lymphocytes % 11.8 % (15.3-44.8); MPV 8.1 fL (7.6-11.3); RBC Red Blood Cell Count 4.03 M/uL (3.86-4.86)
--- NOTE | 2022-02-19 21:50 | RAD REPORT ---
EXAM DESCRIPTION: CT - Abdomen Pelvis W Contrast - 02/19/2022 9:40 pm CLINICAL HISTORY: Abdominal pain/left flank pain COMPARISON: 2019 TECHNIQUE: Computed axial tomography of the abdomen pelvis was obtained. 100 cc Isovue-300 was admin istered intravenously. Oral contrast was not requested which limits evaluation of bowel. All CT scans are performed using dose optimization technique as appropriate and may include automated exposure control or mA/KV adjustment according to patient size. FINDINGS: The liver, spleen, pancreas, adrenal and kidneys appear unremarkable. There is no evidence of diverticulitis. Normal appendix. uterus Moderate amount stool within the colon IMPRESSION: Moderate amount stool within the colon.
[2022-02-19 21:57] LABS: ALT/SGPT 15 U/L (12-78); AST/SGOT 18 U/L (15-37); Albumin 2.5 g/dL (3.4-5.0); Alkaline Phosphatase 108 U/L (45-117); BUN Blood Urea Nitrogen 7 mg/dL (7-18); Bicarbonate 23 mmol/L (21-32); Bilirubin Total 0.3 mg/dL (0.2-1.0); Glucose Level 94 mg/dL (74-106); Lipase 91 U/L (73-393); Protein, Total 6.8 g/dL (6.4-8.2); Sodium Level 138 mmol/L (136-145)
--- NOTE | 2022-02-19 22:52 | ER ---
Nurse's Notes [facility] Name: Tiago Floyd Age: 21 yrs Sex: Female : 2000 Arrival Date: 02/19/2022 Time: 18:35 Bed 10 Private MD: Diagnosis: Constipation, unspecified;UTI/ Urinary tract infection, site not specified Presentation: 02/19 19:00 Chief complaint: Patient states: Upper abdominal pain and bloating, vaginal on ph Saturday, denies fever, also denies N/V/D, c/o burning w/ urination. Coronavirus screen: Vaccine status: Patient reports being unvaccinated. Ebola Screen: No symptoms or risks identified at this time. Initial Sepsis Screen: Does the patient meet any 2 criteria? No. Patient's initial sepsis screen is negative. Does the patient have a suspected source of infection? Yes: Dysuria/Frequency/Urgency/UTI. Risk Assessment: Do you want to hurt yourself or someone else? Patient reports no desire to harm self or others. Onset of symptoms was February 19, 2022. 19:00 Method Of Arrival: Ambulatory ph 19:00 Acuity: JANET 3 ph Triage Assessment: 19:06 General: Appears in no apparent distress. uncomfortable, Behavior is calm, cooperative, ph appropriate for age, Denies fever. Pain: Complains of pain in right upper quadrant and left upper quadrant. Neuro: Level of Consciousness is awake, alert, obeys commands, Oriented to person, place, time, situation. GI: Abdomen is non-distended, Reports upper abdominal pain, bloating, Patient currently denies constipation, diarrhea. : Reports burning with urination. Historical: - Allergies: 19:05 No Known Allergies; ph - PMHx: 19:05 None; ph - Immunization history:: Client reports having NOT received the Covid vaccine. - Social history:: Smoking status: Patient denies any tobacco usage or history of. Screenin:32 Abuse screen: Denies threats or abuse. Nutritional screening: No deficits noted. vc1 Tuberculosis screening: No symptoms or risk factors identified. Fall Risk None identified. Assessment: 21:13 General: Appears uncomfortable. Pain: Complains of pain in suprapubic area, right lower lp1 quadrant and left lower quadrant Pain currently is 9 out of 10 on a pain scale. Neuro: Level of Consciousness is awake, alert, obeys commands. 22:05 Reassessment: Patient is alert, oriented x 3, equal unlabored respirations, skin vc1 warm/dry/pink. Patient is alert/active/playful, equal unlabored respirations, skin warm/dry/pink. Pt provided with socks. No complaints at this time. Patient states feeling better. 23:00 Reassessment: Patient and/or family updated on plan of care and expected duration. Pain vc1 level reassessed. Patient is alert, oriented x 3, equal unlabored respirations, skin warm/dry/pink. Patient states feeling better. Patient states symptoms have improved. Vital Signs: 19:00 BP 125 / 76; Pulse 83; Resp 18; Temp 99.5(TE); Pulse Ox 100% on R/A; ph 21:19 BP 118 / 67; Pulse 69; Resp 17; Pulse Ox 99% on R/A; ab2 22:15 BP 114 / 64; Pulse 65; Resp 17; Pulse Ox 99% ; vc1 ED Course: 18:35 Patient arrived in ED. mr 18:57 Navneet Luis, KARTIK is PHCP. pm1 19:05 Triage completed. ph 19:06 Arm band placed on Patient placed in waiting room, Patient notified of wait time. ph 19:37 Transvaginal Study Probe In Process Unspecified. EDMS 21:13 Calin Khan is Primary Nurse. ab2 21:13 Inserted saline lock: 20 gauge in right antecubital area, using aseptic technique. lp1 Blood collected. 21:42 CT Abd/Pelvis - IV Contrast Only In Process Unspecified. EDMS 22:52 Otf Leroy MD is Attending Physician. pm1 23:32 No provider procedures requiring assistance completed. IV discontinued, intact, vc1 bleeding controlled, No redness/swelling at site. Pressure dressing applied. Administered Medications: 21:17 Drug: morphine 4 mg Route: IVP; Site: right antecubital; ab2 22:15 Follow up: BP 114 / 64; Pulse 65 bpm; Resp 17 bpm; Pulse Ox 99% ; Response: No adverse vc1 reaction; Marked relief of symptoms; Pain is decreased 21:18 Drug: NS 0.9% 1000 ml Route: IV; Rate: 1 bolus; Site: right antecubital; ab2 22:15 Follow up: IV Status: Completed infusion; IV Intake: 1000ml vc1 21:18 Drug: Zofran (Ondansetron) 4 mg Route: IVP; Site: right antecubital; ab2 22:15 Follow up: Response: No adverse reaction; Marked relief of symptoms; Nausea is decreasedvc1 23:26 Drug: Rocephin (cefTRIAXone) 1 grams Route: IV; Rate: calculated rate; Site: right vc1 antecubital; 23:30 Follow up: Response: No adverse reaction; IV Status: Completed infusion; IV Intake: [id number] Intake: 22:15 IV: 1000ml; Total: 1000ml. vc1 23:30 IV: 50ml; Total: 1050ml. vc1 Outcome: 22:52 Discharge ordered by . pm1 23:32 Discharged to home ambulatory. vc1 23:32 Condition: good 23:32 Discharge instructions given to patient, Instructed on discharge instructions, follow up and referral plans. medication usage, Demonstrated understanding of instructions, follow-up care, medications, Prescriptions given X 3. 23:33 Patient left the ED. vc1 Signatures: Dispatcher [employer] [facility] AnthonySvetlana Laura RN RN lp1 Jolanta Galvez RN Navneet Maradiaga ph, [place] [facility] [place] pm1 Calin Khan ab2 Tammie Ocampo RN RN vc1
--- NOTE | 2022-02-19 22:52 | EDPHYS ---
Physician Documentation [facility] Name: Tiago Floyd Age: 21 yrs Sex: Female : 2000 Arrival Date: 02/19/2022 Time: 18:35 Bed 10 Private MD: ED Physician Otf Leroy HPI: 02/19 18:58 This 21 yrs old Female presents to ER via Ambulatory with complaints of pm1 Abdominal Pain. 18:58 The patient presents with abdominal pain in the upper abdomen. pm1 02/20 02:39 Onset: The symptoms/episode began/occurred today. The symptoms do not radiate. pm1 Associated signs and symptoms: Pertinent positives: dysuria, burning with urination. The symptoms are described as sharp. Modifying factors: The symptoms are alleviated by nothing, the symptoms are aggravated by urination. Severity of pain: in the emergency department the pain is actually worse. The patient has not experienced similar symptoms in the past. The patient has been recently seen by a physician: with different complaint(s), Vaginal delivery 3 days ago. . no complications with except for anemia. Historical: - Allergies: 02/19 19:05 No Known Allergies; ph - PMHx: 19:05 None; ph - Immunization history:: Client reports having NOT received the Covid vaccine. - Social history:: Smoking status: Patient denies any tobacco usage or history of. ROS: 02/20 02:39 Constitutional: Negative for fever, chills, and weight loss, Cardiovascular: Negative pm1 for chest pain, palpitations, and edema, Respiratory: Negative for shortness of breath, cough, wheezing, and pleuritic chest pain. Back: Negative for injury and pain. MS/Extremity: Negative for injury and deformity, Skin: Negative for injury, rash, and discoloration. Neuro: Negative for headache, weakness, numbness, tingling, and seizure. Abdomen/GI: Positive for abdominal pain, constipation, of the right upper quadrant and left upper quadrant, Negative for nausea, vomiting, and diarrhea. : Positive for burning with urination, Negative for flank pain. All other systems are negative. Exam: 02:39 Constitutional: This is a well developed, well nourished patient who is awake, alert, pm1 and in no acute distress. Head/Face: Normocephalic, atraumatic. 02:39 Back: No spinal tenderness. No costovertebral tenderness. Full range of motion. Skin: Warm, dry with normal turgor. Normal color with no rashes, no lesions, and no evidence of cellulitis. MS/ Extremity: Pulses equal, no cyanosis. Neurovascular intact. Full, normal range of motion. 02:39 Cardiovascular: Exam negative for acute changes, Rate: normal, Rhythm: regular, Pulses: no pulse deficits are appreciated, Heart sounds: normal. 02:39 Respiratory: Exam negative for acute changes, respiratory distress, shortness of breath, Breath sounds: are clear throughout. 02:39 Abdomen/GI: Inspection: abdomen appears normal, Palpation: soft, in all quadrants, mild abdominal tenderness, in the suprapubic area. 02:39 : boggy uterus absent. 02:39 Neuro: Exam negative for acute changes, Orientation: is normal, Mentation: is normal, Motor: moves all fours. Vital Signs: 02/19 19:00 BP 125 / 76; Pulse 83; Resp 18; Temp 99.5(TE); Pulse Ox 100% on R/A; ph 21:19 BP 118 / 67; Pulse 69; Resp 17; Pulse Ox 99% on R/A; ab2 22:15 BP 114 / 64; Pulse 65; Resp 17; Pulse Ox 99% ; vc1 MDM: 19:01 Patient medically screened. pm1 22:51 Data reviewed: vital signs. Data interpreted: Pulse oximetry: on room air is 99 %. pm1 Interpretation: normal. Counseling: I had a detailed discussion with the patient and/or guardian regarding: the historical points, exam findings, and any diagnostic results supporting the discharge/admit diagnosis, lab results, radiology results, the need for outpatient follow up, to return to the emergency department if symptoms worsen or persist or if there are any questions or concerns that arise at home. 02/19 18:58 Order name: CBC with Diff; Complete Time: 22:19 pm1 02/19 18:58 Order name: CMP; Complete Time: 22:19 pm1 02/19 18:58 Order name: Lipase; Complete Time: 22:19 pm1 02/19 18:58 Order name: Urine Microscopic Only; Complete Time: 20:13 pm1 02/19 19:20 Order name: Urine Dipstick-Ancillary; Complete Time: 19:20 EDMS 02/19 18:58 Order name: CT Abd/Pelvis - IV Contrast Only; Complete Time: 22:19 pm1 02/19 19:20 Order name: Transvaginal Study Probe; Complete Time: 19:54 EDMS 02/19 19:57 Order name: Urine Culture EDAK 02/19 20:55 Order name: Urine --Ancillary (enter results); Complete Time: 22:19 mw2 02/19 18:58 Order name: IV Saline Lock; Complete Time: 21:14 pm1 02/19 18:58 Order name: Labs collected and sent; Complete Time: 21:14 pm1 02/19 18:58 Order name: Urine Dipstick-Ancillary (obtain specimen); Complete Time: 21:14 pm1 Administered Medications: 21:17 Drug: morphine 4 mg Route: IVP; Site: right antecubital; ab2 22:15 Follow up: BP 114 / 64; Pulse 65 bpm; Resp 17 bpm; Pulse Ox 99% ; Response: No adverse vc1 reaction; Marked relief of symptoms; Pain is decreased 21:18 Drug: NS 0.9% 1000 ml Route: IV; Rate: 1 bolus; Site: right antecubital; ab2 22:15 Follow up: IV Status: Completed infusion; IV Intake: 1000ml vc1 21:18 Drug: Zofran (Ondansetron) 4 mg Route: IVP; Site: right antecubital; ab2 22:15 Follow up: Response: No adverse reaction; Marked relief of symptoms; Nausea is decreasedvc1 23:26 Drug: Rocephin (cefTRIAXone) 1 grams Route: IV; Rate: calculated rate; Site: right vc1 antecubital; 23:30 Follow up: Response: No adverse reaction; IV Status: Completed infusion; IV Intake: [id number] Disposition Summary: 02/19/22 22:52 Discharge Ordered Location: Home pm1 Problem: new pm1 Symptoms: have improved pm1 Condition: Stable pm1 Diagnosis - Constipation, unspecified pm1 - UTI/ Urinary tract infection, site not specified pm1 Followup: pm1 - With: Emergency Department - When: As needed - Reason: Worsening of condition Followup: pm1 - With: Private Physician - When: 2 - 3 days - Reason: Recheck today's complaints, Continuance of care, Re-evaluation by your physician Discharge Instructions: - Discharge Summary Sheet pm1 - Constipation, Adult pm1 - Urinary Tract Infection, Adult pm1 Forms: - Medication Reconciliation Form pm1 - Thank You Letter pm1 - Antibiotic Education pm1 - Prescription Opioid Use pm1 Prescriptions: - Colace 100 mg Oral Tablet - take 1 tablet by ORAL route every 12 hours; 14 tablet; Refills: 0, Product pm1 Selection Permitted - Pyridium 200 mg Oral Tablet - take 1 tablet by ORAL route every 8 hours for 3 days; 9 tablet; Refills: 0, pm1 Product Selection Permitted - Bactrim DS 800-160 mg Oral Tablet - take 1 tablet by ORAL route every 12 hours for 10 days; 20 tablet; Refills: 0, pm1 Product Selection Permitted Addendum: 02/22/2022 07:16 Co-signature as Attending Physician, Otf Leroy MD I agree with the assessment and c sneed plan of care. Signatures: Dispatcher [employer] Otf Dave MD MD cha Hall, Patricia, RN RN ph Navneet Luis, MAINTENANCE SUPERVISOR 2ND SHIFT MAINTENANCE SUPERVISOR 2ND SHIFT pm1 Calin Khan2 Tammie Ocampo RN RN vc1 Corrections: (The following items were deleted from the chart) 02/19 19:20 19:05 Transvaginal Ob+US.RAD.BRZ ordered. EDAK EDMS 20:56 19:35 URINE --ANCILLARY+UC.LAB.BRZ ordered. EDAK EDMS 02/20 02:41 02/19 18:58 The patient presents with abdominal pain pm1 pm1
[2022-02-19] MEDS ORDERED: CEFTRIAXONE 1000 MG/VIAL ONE (23:18)
[2022-02-19] MEDS ORDERED: NA CHLORIDE 0.9% 50 ML ONE (23:19)
[2022-02-20 01:46] VITALS: TEMP 99.5
[2022-02-20 01:47] VITALS: BP 118/67; O2SAT 99
== END 2022-02-19 23:33 | disposition home or self-care (01) ==
LOC: ER 18:31
DX: K59.00 Constipation, unspecified (principal); N39.0 Urinary tract infection, site not specified
CPT/HCPCS: 87088; 85025; 87086; 36415; 81025; 83690; 80053; 74177; 76830; Q9967; J7030; J2405; 81003; 81015; 96361; 96374; 96375; 99284

== ENCOUNTER 2022-04-28 18:49 | Emergency (ER) | payer OTHER ==
--- OUTSIDE RECORDS SUMMARY | 2022-04-28 18:52 | XMS REPORT | Continuity of Care Document ---
:2000 Author Organization [facility] t Address [address] [place] [address] Care Team Providers Name Role Phone Violet HAYNES Primary Care Physician Unavailable Alejandro GARIBAY Attending Clinician ALEJANDRO Attending Clinician Unavailable Visit, Nurse Attending Clinician Unavailable Kendall CORBETT, N Attending Clinician Payers Payer Name Policy Type Policy Number Effective Date Expiration Date S ource Problems Condition Condition Condition Status Onset Resolution Last Treating Co mments Source Name Details Category Date Date Treatment Clinician Date Acute Acute Disease Active 2020-11 [facility] intractabl intractabl 1-10 it y of [...] squamous squamous different intraepith intraepith from the susannah 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) (LGSIL) LGSIL, patient will have repeat pap smear in 3 years (routine screening ) Multiparit Multiparit Disease Active U nivers y y 8-09 ity of 00:00: [place] 00 [facility] History of History of Disease Active U nivers syphilis syphilis 8-09 ity of 00:00: [place] 00 Medical [facility] Overweight Overweight Disease Active U nivers (BMI (BMI 2-07 ity of 25.0-29.9) 25.0-29.9[place] [facility] Allergies, Adverse Reactions, Alerts Allergy Allergy Status Severity Reaction(s) Onset Inactive Treating Comm ents Source Name Type Date Date Clinician No Known DA Active U [facility] -03 [facility] NO KNOWN Drug Active Univers ALLERGIE Class ity of S [facility] Social History Social Habit Start Date Stop Date Quantity Comments Source Alcohol intake 2022-04-12 2022-04-12 0 /d University of 00:00:00 00:00:00 [facility] Tobacco use and 2021-06-26 2021-06-26 Never used Universit y of exposure 00:00:00 00:00:00 [facility] History of 2021-06-18 Cigarette Smoker Universi ty of tobacco use 00:00:00 [facility] Sex Ass[birth year] At [birth year] Universit y of 00:00:00 00:00:00 [facility] Smoking Status Start Date Stop Date Source Former smoker 2021-06-26 00:00:00 2021-06-26 00:00:00 [facility] Medications Ordered Filled Start Stop Current Ordering Indication Dosage Frequency Signature Comments Components Source Medication Medication Date Date Medication? Clinician (SIG) Name Name miSOPROStoL Yes [id number] 200ug Take 1 Univers 200 mcg 5-26 tablet by ity of tablet 00:00: mouth 2 [place] 00 (two) Medical times Branch daily. Take the night before and the morning of the procedure docusate Yes [id number] 240mg Take 1 Univers calcium 240 4-02 102 capsule by it y of mg capsule 00:00: mouth once [place] 00 daily as Medical needed for Branch Constipati on. ferrous Yes [id number] 325mg Take 1 Univers sulfate 325 4-02 102 tablet by ity of mg (65 mg 00:00: mouth 2 [place] iron) 00 (two) Medical tablet times Branch daily. ibuprofen Yes [id number] 600mg Take 1 Univers 600 mg 4- 102 tablet by ity of tablet 00:00: mouth [place] 00 every 6 Medical (six) Branch hours as needed (Pain). Take with food or milk. 2021- No [id number] 1{tbl} Take 1 Univers vitamin 4-02 - 102 tablet by ity of w/FA tablet [place] daily. Medical Branch Yes [id number] 1{packe Take 1 Univers vit 3-15 t} Packet by ity of 33-iron-fol 00:00: mouth [place] ic-dha 00 daily. Medical (SELECT-OB Branch + DHA) 29 mg iron-1 mg -250 mg combo pack Immunizations Ordered Filled Immunization Date Status Comments Sour e Immunization Name Name [facility] 2021-12-18 Completed University of 00:00:00 [facility] Influenza Virus 2020-10-25 Completed Universit y of Vaccine Quad .5 mL 00:00:00 [facility] IM 6+ MO Branch [facility] 2018-02-21 Completed University of 00:00:00 [facility] Varicella 2016-08-15 Completed University of (varivax)(chicken 00:00:00 [facility] edical pox) Branch MMR 2016-06-27 Completed University of 00:00:00 [facility] Varicella 2016-06-27 Completed University of (varivax)(chicken 00:00:00 [place] M edical pox) Branch AP 2016-04-12 Completed University of 00:00:00 [facility] Influenza Virus 2015-11-22 Completed Universit y of Vaccine Quad IM 3+ 00:00:00 [facility] Vital Signs Vital Name Observation Time Observation Value Comments Source Systolic blood 2022-04-12 20:06:00 108 mm[Hg] Univer sity of pressure [facility] Diastolic blood 2022-04-12 20:06:00 75 mm[Hg] Unive rsity of pressure [facility] Heart rate 2022-04-12 20:06:00 73 /min [facility] Respiratory rate 2022-04-12 20:06:00 18 /min Univ ersity of [facility] Body height 2022-04-12 20:06:00 152.4 cm [facility] Body weight 2022-04-12 20:06:00 72.831 kg [facility] BMI 2022-04-12 20:06:00 31.36 kg/m2 [facility] Procedures This patient has no known procedures. Encounters Start End Encounter Admission Attending Care Care Encounter Source Date/Time Date/Time Type Type Clinicians Facility Department ID 2022-04-12 2022-04-12 Office Jeet Graves [facility] [id number] [facility] [place] [facility] 15:00:00 15:33:29 [id number] [id number] [address] 2022-04-12 2022-04-12 Outpatient R JEET GRAVES [facility] [id number] [facility] [place] [facility] 15:00:00 15:33:29 [facility] 2020-10-27 2020-10-27 Nurse Visit, [facility] [id number] 13:26:29 13:42:30 Visit Gonzalo [employer] [id number] [facility] [id number] MATERNAL [id number] & CHILD 107 [facility] 2020-10-26 2020-10-26 [facility] [id number] 00:00:00 00:00:00 Anna Alejandro [employer] [id number] [facility] [id number] MATERNAL [id number] & CHILD 107 [facility] 2020-10-25 2020-10-25 [facility] [id number] 08:33:39 09:04:09 Visit Anna Alejandro [employer] [id number] [facility] [id number] MATERNAL [id number] & CHILD 107 [facility] Results Test Description Test Time Test Comments Results Result Comments Source URINALYSIS COMPLETE 2019-03-20 23:19:00 Test Item Value Reference Range Interpretation Comme nts UA COLOR (test code = COLU) YELLOW YELLOW UA APPEARANCE (test code = APPU) CLEAR CLEAR UA GLUCOSE DIPSTICK (test code = DGLUU) NEGATIVE mg/dL NEGATIVE UA BILIRUBIN DIPSTICK (test code = BILU) NEGATIVE mg/dL NEGATIVE UA KETONE DIPSTICK (test code = KETU) NEGATIVE mg/dL NEGATIVE UA SPECIFIC GRAVITY (test code = SGU) 1.031 1.001-1.035 UA BLOOD DIPSTICK (test code = TAURUS) 0.5 mg/dL (2+) mg/dL NEGATIVE A UA PH DIPSTICK (test code = OLMAN) 6.0 5.0-8.0 UA PROTEIN DIPSTICK (test code = PROU) 10 (Trace) mg/dL NEGATIVE A UA UROBILINIOGEN DIPSTICK (test code = URO) 3.0 (1+) mg/dL NEGATIVE A UA NITRITE DIPSTICK (test code = KHUSHBU) NEGATIVE NEGATIVE UA LEUKOCYTE ESTERASE W REFLEX (test code = NEGATIVE Vania/uL NEGATIV E LEUUR) UA WBC (test code = WBCU) 0-5 per HPF 0-5 UA RBC (test code = RBCU) 51-100 #/HPF 0-5 UA EPITHELIAL CELLS (test code = EPIU) FEW per HPF FEW UA BACTERIA (test code = BACU) FEW #/HPF NONE A UA MUCUS (test code = MUCU) FEW #/LPF FEW Urine Source? Clean CatchBASIC METABOLIC [id number] 22:39:00 Test Item Value Reference Range Interpretation [...] 8.9 mg/dL 8.5-10.1 N CA) HCG SERUM [id number] 22:39:00 Test Item Value Reference Range Interpretation [...] AFTER CONCEPTION 10,000-100,000 MIU/ML - DUP AB/PEL/SC [id number] 22:36:00 Name: ALKA MOLINA V [facility] : 2000 Age/S: 18 / F [address] [facility] Unit #: [id number] Loc: [place] [address] Phys: Jeet Herrmann NP Acct: [id number] Dis Date: Status: REG ER PHONE #: [phone] Exam Date: 03/20/2019 2216 FAX #: [phone] Reason: PELVIC PAIN EXAMS: CPTCODE: [id number] DUP AB/PEL/SC COMP [id number] REASON FOR EXAM: VAGINAL BLEEDING/PELVIC PAIN EXAM [...] Anat Barroso RDMS Trnscb Date/Time: 03/20/2019 (2235) [email or web address] Orig Print D/T: S: 03/20/2019 (910) Probe: PAGE 1 Signed Report- US TRANSVAGINAL NON [id number] 22:36:00 Name: ALKA MOLINA V [facility] : 2000 Age/S: 18 / F [address] [facility] Unit #: [id number] Loc: [place] [address] Phys: Jeet Herrmann NP Acct: [id number] Dis Date: Status: REG ER PHONE #: [phone] Exam Date: 03/20/20192215 FAX #: [phone] Reason: VAGINALBLEEDING/PELVIC PAIN EXAMS: CPTCODE: [id number] [place] [id number] REASON FOR EXAM: VAGINAL BLEEDING/PELVIC PAIN EXAM [...] Anat Barroso RDMS Trnscb Date/Time: 03/20/2019 (2235) [email or web address] Orig Print D/T: S: 03/20/2019 (2238) Probe: [id number] PAGE 1 Signed Report- US PELVIS [id number] 22:36:00 Name: JESSENOEMIViolet Orellana [facility] : 2000 Age/S: 18 / F [address] [facility] Unit #: [id number] Loc: [place] [address] Phys: Jeet Herrmann NP Acct: [id number] Dis Date: Status: REG ER PHONE #: [phone] Exam Date: 03/20/20192215 FAX #: [phone] Reason: VAGINALBLEEDING/PELVIC PAIN EXAMS: CPTCODE: [id number] US PELVIS COMPLETE [id number] REASON FOR EXAM: VAGINAL BLEEDING/PELVIC PAIN EXAM [...] S: 03/20/2019 (2238) Probe: PAGE 1 Signed ReportBASIC METABOLIC [id number] 22:30:00 Test Item Value Reference Range Interpretation [...] code = CA) mg/dL 8.5-10.1 HCG SERUM [id number] 22:30:00 Test Item Value Reference Range Interpretation Comments HCG SERUM BETA (test code = HCG) mIU/mL 0-3 CBC W/O [id number] 22:27:00 Test Item Value Reference Range Interpretation [...] fL 6.7-11.0 N = MPV) CBC W/O [id number] 22:13:00 Test Item Value Reference Range Interpretation [...]
[2022-04-28 19:36] LABS: Urine Blood 2+ (Negative); Urine Glucose Trace (Negative); Urine Protein 2+ (Negative); Urine Specific Gravity >=1.030 (1.005-1.030)
[2022-04-28] MEDS ORDERED: ONDANSETRON 4 MG (ODT) TAB ONE (19:40)
--- NOTE | 2022-04-28 21:30 | ER ---
Nurse's Notes [facility] Name: Tiago Floyd Age: 21 yrs Sex: Female : 2000 Arrival Date: 04/28/2022 Time: 18:51 Bed 9 Private MD: Diagnosis: Nausea with vomiting, unspecified;Cough Presentation: 04/28 19:01 Chief complaint: Patient states: I have been vomiting for the past 3 days. I feel weak, jb4 I have a cough and body aches and chills. Coronavirus screen: At this time, the client does not indicate any symptoms associated with coronavirus-19. Ebola Screen: No symptoms or risks identified at this time. Initial Sepsis Screen: Does the patient meet any 2 criteria? HR > 90 bpm. Yes Does the patient have a suspected source of infection? Yes: Acute abdominal pain. Risk Assessment: Do you want to hurt yourself or someone else? Patient reports no desire to harm self or others. Onset of symptoms was April 25, 2022. Transition of care: patient was not received from another setting of care. 19:01 Method Of Arrival: Ambulatory jb4 19:01 Acuity: JANET 3 jb4 Triage Assessment: 21:37 General: Appears in no apparent distress. uncomfortable, ill, Behavior is calm, vc1 cooperative, appropriate for age. Pain: Pain radiates to All over. Neuro: Level of Consciousness is awake, alert, obeys commands, Oriented to person, place, time, situation, Appropriate for age. Cardiovascular: No deficits noted. Respiratory: Airway is patent Respiratory effort is even, unlabored, Respiratory pattern is regular, symmetrical. Respiratory: Reports cough that is. GI: Reports nausea, vomiting. : No deficits noted. Derm: No deficits noted. Musculoskeletal: No deficits noted. MANAGER INSIDE: 19:03 LMP N/A - Recent jb4 Historical: - Allergies: 19:03 No Known Allergies; jb4 - Home Meds: 19:03 None [Active]; jb4 - PMHx: 19:03 None; jb4 - PSHx: 19:03 None; jb4 - Immunization history:: Adult Immunizations up to date. - Social history:: Smoking status: Patient denies any tobacco usage or history of. Patient/guardian denies using alcohol, street drugs. Screenin:37 Abuse screen: Denies threats or abuse. Nutritional screening: No deficits noted. vc1 Tuberculosis screening: No symptoms or risk factors identified. Fall Risk None identified. Vital Signs: 19:01 BP 141 / 86; Pulse 98; Resp 18; Temp 98.8(TE); Pulse Ox 99% on R/A; Weight 68.67 kg jb4 (M); Height 5 ft. 0 in. (152.40 cm) (R); Pain 5/10; 19:01 Body Mass Index 29.57 (68.67 kg, 152.40 cm) jb4 ED Course: 18:51 Patient arrived in ED. as 18:53 Camila Lam [facility]-C [facility]. kb 18:53 Raghu Grove MD is Attending Physician. kb 19:03 Triage completed. jb4 19:03 Arm band placed on right wrist. jb4 19:40 COVID-19 SARS RT PCR (Document "Date of Onset" if Symptomatic) Sent. vc1 19:40 Flu Sent. vc1 21:38 No provider procedures requiring assistance completed. Patient did not have IV access vc1 during this emergency room visit. 21:39 Patient has correct armband on for positive identification. Bed in low position. Call vc1 light in reach. Administered Medications: 19:40 Drug: Zofran (Ondansetron) 4 mg Route: PO; vc1 Medication: 21:39 VIS not applicable for this client. vc1 Outcome: 21:29 Discharge ordered by MD. kb 21:39 Discharged to home ambulatory. vc1 21:39 Condition: good 21:39 Discharge instructions given to patient, Instructed on discharge instructions, follow up and referral plans. medication usage, Demonstrated understanding of instructions, follow-up care, medications, Prescriptions given X 1. 21:39 Patient left the ED. vc1 Signatures: Camila Lam FNP-C FNP-Ckb Martinez, Amelia as Bryson, James, RN RN jb4 Tammie Ocampo RN RN vc1 Corrections: (The following items were deleted from the chart) 19:03 19:03 PSHx: Unable to Obtain; jb4 jb4 19:05 19:01 BP 141 / 8; Pulse 98bpm; Resp 18bpm; Pulse Ox 99% RA; Temp 98.8F Temporal; Height jb4 5 ft. 0 in. Reported; Pain 5/10; jb4 19:26 19:01 BP 141 / 8; Pulse 98bpm; Resp 18bpm; Pulse Ox 99% RA; Temp 98.8F Temporal; 68.67 jb4 kg Measured; Height 5 ft. 0 in. Reported; BMI: 29.5; Pain 5/10; jb4
--- NOTE | 2022-04-28 21:30 | EDPHYS ---
Physician Documentation [facility] Name: Tiago Floyd Age: 21 yrs Sex: Female : 2000 Arrival Date: 04/28/2022 Time: 18:51 Bed 9 Private MD: ED Physician Raghu Grove HPI: 04/28 21:37 This 21 yrs old Female presents to ER via Ambulatory with complaints of kb Vomiting, Cough, Pain All Over. 21:37 The patient has not experienced similar symptoms in the past. The patient has not kb recently seen a physician. 21:37 The patient or guardian reports cough, that is intermittent, described as mild, flu kb symptoms, myalgias. Onset: The symptoms/episode began/occurred 3 day(s) ago. Severity of symptoms: At their worst the symptoms were moderate, in the emergency department the symptoms are unchanged. Modifying factors: The symptoms are alleviated by nothing, the symptoms are aggravated by nothing. Associated signs and symptoms: Pertinent positives: nausea, vomiting. CUTTER IN: 19:03 LMP N/A - Recent jb4 Historical: - Allergies: 19:03 No Known Allergies; jb4 - Home Meds: 19:03 None [Active]; jb4 - PMHx: 19:03 None; jb4 - PSHx: 19:03 None; jb4 - Immunization history:: Adult Immunizations up to date. - Social history:: Smoking status: Patient denies any tobacco usage or history of. Patient/guardian denies using alcohol, street drugs. ROS: 21:34 Cardiovascular: Negative for chest pain, palpitations, and edema. kb 21:34 Constitutional: Positive for body aches. 21:34 Respiratory: Positive for cough, Negative for dyspnea on exertion, hemoptysis, orthopnea, pleurisy, shortness of breath, sputum production, wheezing. 21:34 Abdomen/GI: Positive for nausea and vomiting. 21:34 All other systems are negative. Exam: 21:37 Constitutional: This is a well developed, well nourished patient who is awake, alert, kb and in no acute distress. Head/Face: Normocephalic, atraumatic. ENT: Moist Mucous membranes Cardiovascular: Regular rate and rhythm with a normal S1 and S2. No gallops, murmurs, or rubs. No pulse deficits. Respiratory: Respirations even and unlabored. No increased work of breathing. Talking in full sentences Abdomen/GI: Soft, non-tender. No distention Skin: Warm, dry with normal turgor. Normal color. MS/ Extremity: Pulses equal, no cyanosis. Neurovascular intact. Full, normal range of motion. Neuro: Awake and alert, GCS 15, oriented to person, place, time, and situation. Moves all extremities. Normal gait. Psych: Awake, alert, with orientation to person, place and time. Behavior, mood, and affect are within normal limits. Vital Signs: 19:01 BP 141 / 86; Pulse 98; Resp 18; Temp 98.8(TE); Pulse Ox 99% on R/A; Weight 68.67 kg jb4 (M); Height 5 ft. 0 in. (152.40 cm) (R); Pain 5/10; 19:01 Body Mass Index 29.57 (68.67 kg, 152.40 cm) jb4 MDM: 18:59 Patient medically screened. kb 21:28 Data reviewed: vital signs, nurses notes. Data interpreted: Pulse oximetry: on room air kb is 99 %. Interpretation: normal. Counseling: I had a detailed discussion with the patient and/or guardian regarding: the historical points, exam findings, and any diagnostic results supporting the discharge/admit diagnosis, lab results, the need for outpatient follow up, a family practitioner. ED course: Pt tolerating po intake and feeling better. . 04/28 19:03 Order name: COVID-19 SARS RT PCR (Document "Date of Onset" if Symptomatic); Complete kb Time: 20:52 04/28 19:03 Order name: Flu; Complete Time: 20:09 kb 04/28 19:03 Order name: Urine Dipstick-Ancillary (obtain specimen); Complete Time: 19:38 kb 04/28 19:37 Order name: Urine Dipstick-Ancillary; Complete Time: 19:43 EDMS 04/28 20:52 Order name: PO challenge; Complete Time: 20:58 kb Administered Medications: 19:40 Drug: Zofran (Ondansetron) 4 mg Route: PO; vc1 Disposition: 04/29 08:13 Co-signature as Attending Physician, Raghu Grove MD I agree with the assessment and kdr plan of care. Disposition Summary: 04/28/22 21:29 Discharge Ordered Location: Home kb Condition: Stable kb Diagnosis - Nausea with vomiting, unspecified kb - Cough kb Followup: kb - With: Emergency Department - When: As needed - Reason: Worsening of condition Followup: kb - With: Private Physician - When: 2 - 3 days - Reason: Recheck today's complaints, Continuance of care, Re-evaluation by your physician Discharge Instructions: - Discharge Summary Sheet kb - Nausea and Vomiting, Adult, [id number] kb - Viral Respiratory Infection, [id number] kb Forms: - Medication Reconciliation Form kb - Thank You Letter kb - Antibiotic Education kb - Prescription Opioid Use kb Prescriptions: - Zofran 4 mg Oral Tablet - take 1 tablet by ORAL route every 6 hours As needed; 20 tablet; Refills: 0, kb Product Selection Permitted Signatures: Dispatcher [employer] EDMS Camila Lam, ARIC-C WIREWORKER-Raghu Adler MD MD kdr Bryson, James, RN RN jb4 Tammie Ocampo RN RN vc1 Corrections: (The following items were deleted from the chart) 04/28 19:03 19:03 PSHx: Unable to Obtain; jb4 jb4
[2022-04-28 21:47] VITALS: BP 141/86; TEMP 98.8; O2SAT 99
== END 2022-04-28 21:39 | disposition home or self-care (01) ==
LOC: ER 18:49
DX: R11.2 Nausea with vomiting, unspecified (principal); R05.9 Cough, unspecified; Z20.822 Contact with and (suspected) exposure to COVID-19
CPT/HCPCS: 81003; 87804 ×2; 99283; U0003

== ENCOUNTER 2022-09-09 03:12 | Emergency (ER) | payer OTHER ==
--- OUTSIDE RECORDS SUMMARY | 2022-09-09 03:18 | XMS REPORT | Continuity of Care Document ---
:2000 Author Organization [facility] t Address [address] [place] [address] Care Team Providers Name Role Phone Viry Wood Primary Care Physician JEET ALLEN Attending Clinician Unavailable Jeet Allen MD Attending Clinician SUZI RANDHAWA Attending Clinician Unavailable SUZI RANDHAWA Attending Clinician Unavailable SHERRI DASILVA Attending Clinician Unavailable Sherri Dasilva MD Attending Clinician Pob, [facility] Attending Clinician Unavailable Doctor Unassigned, [place] Attending Clinician Unavailable Ultrasound, [place] Attending Clinician Unavailable Ronaldo Poole MD Attending Clinician RONALDO POOLE Attending Clinician Unavailable RONALDO POOLE Attending Clinician Unavailable FAYE ROWLAND Attending Clinician Unavailable Jessee Ricketts Attending Clinician JESSEE ROSAS Attending Clinician Unavailable Skyler Montgomery Attending Clinician SKYLER JEFFRIES Attending Clinician Unavailable Visit, Gonzalo Nurse Attending Clinician Unavailable Faye Ceballos Attending Clinician [phone] SHERRI DASILVA Admitting Clinician Unavailable Sherri Dasilva MD Admitting Clinician Payers Payer Name Policy Type Policy Number Effective Date Expiration Date Richard capps [facility] [id number] 2021 00:00:00 MEDICAID PENDING PENDING 2021 00:00:00 Problems Condition Condition Condition Status [...] nivers y y 06-26 ity of 00:00: [place] [id number] [facility] [place] History of History of Disease Active U nivers syphilis syphilis 06-26 ity of 00:00: [place] [id number] [facility] [place] Overweight Overweight Disease Active U nivers (BMI (BMI 2-07 ity of 25.0-29.9) 25.0-29.9[place] 00 [facility] Allergies, Adverse Reactions, Alerts Allergy Allergy Status Severity Reaction(s) Onset Inactive Treating Comm ents Source Name Type Date Date Clinician No Known DA [facility] NO KNOWN Drug Active Univers ALLERGIE Class ity of S [facility] Social History Social Habit Start Date Stop Date Quantity Comments Source Tobacco use and 2022-08-06 2022-08-06 Smokeless tobacco Un iversity of exposure 00:00:00 00:00:00 non-user [facility] Alcohol intake 2022-08-06 2022-08-06 0 /d University of 00:00:00 00:00:00 [facility] Exposure to 2022-05-26 2022-06-05 Not sure [facility] SARS-CoV-2 00:00:00 12:59:00 [facility] [place] (event) Branch History of 2021-06-18 Cigarette Smoker [facility] of tobacco use 00:00:00 [facility] Sex Assigned At 2000 2000 Universit y of 00:00:00 00:00:00 [facility] Smoking Status Start Date Stop Date Source Ex-smoker 2022-08-06 00:00:00 2022-08-06 00:00:00 [facility] of [facility] Medications Ordered Filled Start Stop Current Ordering Indication Dosage Frequency Signature Comments Components Source Medication Medication Date Date Medication? Clinician (SIG) Name Name buPROPion Yes [id number] 100mg Take 1 U nivers SR 9-19 tablet by ity of (WELLBUTRIN 00:00: mouth [place] SR) 100 mg 00 the Medical SR tablet morning Branch and 1 tablet in the evening. buPROPion Yes [id number] 100mg Take 1 U nivers SR 9-19 tablet by ity of (WELLBUTRIN [place] 100 mg 00 the Medical SR tablet morning Branch and 1 tablet in the evening. buPROPion Yes [id number] 100mg Take 1 U nivers SR 7-25 tablet by ity of (WELLBUTRIN [place] 100 mg 00 the Medical SR tablet morning Branch and 1 tablet in the evening. buPROPion 2021- No [id number] 100mg Take 1 Univers SR 7-25 -19 tablet by ity of (WELLBUTRIN 00:00: 00:00 [place] SR[place] 100 mg 00 :00 the Medical SR tablet morning Branch and 1 tablet in the evening. buPROPion 2021- No [id number] 100mg Take 1 Univers SR 7-25 -19 tablet by ity of (WELLBUTRIN 00:00: 00:00 [place] SR) 100 mg 00 :00 the Medical SR tablet morning Branch and 1 tablet in the evening. levonorgest 2021- No [id number] 1{devic Univers reL 06-05 e} ity of (KYLEENA) 20:15: 19:05 [place] IUD 1 00 :00 Alterations Manager [place] levonorgest 2021- No [id number] 1{[facility] 1 Device, Univers reL 06-05 e} Intrauteri ity of (KYLEENA) 20:15: 19:05 [place], ONCE, [place] IUD 1 00 :00 1 dose, On Alterations Manager e [place] 06/05/22 at 1515, Routine DULoxetine Yes [id number] 20mg Take 1 U nivers (CYMBALTA) 06-05 capsule by ity of 20 mg 00:00: mouth in [place] capsule 00 the Medical morning. Branch DULoxetine Yes [id number] 20mg Take 1 U nivers (CYMBALTA) 06-05 capsule by ity of 20 mg 00:00: mouth in [place] capsule 00 the Medical morning. Branch DULoxetine 0 Yes [id number] 20mg Take 1 U nivers (CYMBALTA) 06-05 capsule by ity of 20 mg 00:00: mouth in [place] capsule 00 the Medical morning. Branch DULoxetine 2021- No [id number] 20mg Take 1 Univers (CYMBALTA) 06-05 capsule by it y of 20 mg 00:00: 00:00 mouth in [place] capsule 00 :00 the Medical morning. Branch DULoxetine 0 2021- No [id number] 20mg Take 1 Univers (CYMBALTA) 06-05 capsule by it y of 20 mg 00:00: 00:00 mouth in [place] capsule 00 :00 the Medical morning. Branch metroNIDAZO 2021- No [id number] 500mg Take 1 Univers LE 500 mg 04-27 tablet by ity of tablet 00:00: 04:59 mouth [place] 00 :00 every 12 Medical (twelve) Branch hours for 7 days. Do not drink alcohol while taking this medication . metroNIDAZO 2021- No [id number] 500mg Take 1 Univers LE 500 mg 04-18 tablet by ity of tablet 00:00: 04:59 mouth [place] 00 :00 every 12 Medical (twelve) Branch hours for 7 days. Do not drink alcohol while taking this medication . miSOPROStoL 2021-0 Yes [id number] 200ug Take 1 Univers 200 mcg 5-26 tablet by ity of tablet 00:00: mouth [place] ([facility]) Medical times Branch daily. Take the night before and the morning of the procedure miSOPROStoL 2021-0 Yes [id number] 200ug Take 1 Univers 200 mcg 5-26 tablet by ity of tablet 00:00: mouth [place] ([facility]) Medical times Branch daily. Take the night before and the morning of the procedure miSOPROStoL 2021-0 Yes [id number] 200ug Take 1 Univers 200 mcg 5-26 tablet by ity of tablet 00:00: mouth ([facility]) Medical times Branch daily. Take the night before and the morning of the procedure miSOPROStoL 0 Yes [id number] 200ug Take 1 Univers 200 mcg 5-26 tablet by ity of tablet 00:00: mouth ([facility]) Medical times [place] daily. Take the night before and the morning of the procedure miSOPROStoL 0 Yes [id number] 200ug Take 1 Univers 200 mcg 5-26 tablet by ity of tablet 00:00: mouth ([facility]) Medical times [place] daily. Take the night before and the morning of the procedure miSOPROStoL 0 Yes [id number] 200ug Take 1 Univers 200 mcg 5-26 tablet by ity of tablet 00:00: mouth ([facility]) Medical times [place] daily. Take the night before and the morning of the procedure miSOPROStoL 2021- No [id number] 200ug Take 1 Univers 200 mcg 5-26 09-19 tablet by ity of tablet 00:00: 00:00 mouth [place] : ([facility]) Medical times Branch daily. Take the night before and the morning of the procedure miSOPROStoL 0 2021- No [id number] 200ug Take 1 Univers 200 mcg 5-26 09-19 tablet by ity of tablet 00:00: 00:00 mouth [place] : ([facility]) Medical times [place] daily. Take the night before and the morning of the procedure docusate Yes [id number] 240mg Take 1 Univers calcium 240 4- 102 capsule by it y of mg capsule 00:00: mouth once [place] 00 daily as Medical needed for Branch Constipati on. ferrous 0 Yes [id number] 325mg Take 1 Univers sulfate 325 4-02 102 tablet by ity of mg (65 mg 00:00: mouth 2 [place] iron) 00 (two) Medical tablet times Branch daily. ibuprofen 0 Yes [id number] 600mg Take 1 Univers 600 mg 4-02 102 tablet by ity of tablet 00:00: mouth [place] 00 every 6 Medical (six) Branch hours as needed (Pain). Take with food or milk. docusate 0 Yes [id number] 240mg Take 1 Univers calcium 240 4-02 102 capsule by it y of mg capsule 00:00: mouth once [place] 00 daily as Medical needed for Branch Constipati on. ferrous 0 Yes [id number] 325mg Take 1 Univers sulfate 325 4-02 102 tablet by ity of mg (65 mg 00:00: mouth 2 [place] iron) 00 (two) Medical tablet times Branch daily. ibuprofen 0 Yes [id number] 600mg Take 1 Univers 600 mg 4-02 102 tablet by ity of tablet 00:00: mouth [place] 00 every 6 Medical (six) Branch hours as needed (Pain). Take with food or milk. docusate 0 Yes [id number] 240mg Take 1 Univers calcium 240 4-02 102 capsule by it y of mg capsule 00:00: mouth once [place] 00 daily as Medical needed for Branch Constipati on. ferrous 0 Yes [id number] 325mg Take 1 Univers sulfate 325 4-02 102 tablet by ity of mg (65 mg 00:00: mouth 2 [place] iron) 00 (two) Medical tablet times Branch daily. ibuprofen 0 Yes [id number] 600mg Take 1 Univers 600 mg 4-02 102 tablet by ity of tablet 00:00: mouth [place] 00 every 6 Medical (six) Branch hours as needed (Pain). Take with food or milk. docusate 2021-0 Yes [id number] 240mg Take 1 Univers calcium 240 4-02 102 capsule by it y of mg capsule 00:00: mouth [place] 00 daily as Medical needed for Branch Constipati on. ferrous 0 Yes [id number] 325mg Take 1 Univers sulfate 325 4-02 102 tablet by ity of mg (65 mg 00:00: mouth 2 [place] iron) 00 (two) Medical tablet times Branch daily. ibuprofen 2021-0 Yes [id number] 600mg Take 1 Univers 600 mg 4-02 102 tablet by ity of tablet 00:00: mouth [place] 00 every 6 Medical (six) Branch hours as needed (Pain). Take with food or milk. docusate 2021-0 Yes [id number] 240mg Take 1 Univers calcium 240 4-02 102 capsule by it y of mg capsule 00:00: mouth once [place] 00 daily as Medical needed for Branch Constipati on. ferrous 2021-0 Yes [id number] 325mg Take 1 Univers sulfate 325 4-02 102 tablet by ity of mg (65 mg 00:00: mouth 2 [place] iron) 00 (two) Medical tablet times Branch daily. ibuprofen 0 Yes [id number] 600mg Take 1 Univers 600 mg 4-02 102 tablet by ity of tablet 00:00: mouth [place] 00 every 6 Medical (six) Branch hours as needed (Pain). Take with food or milk. docusate 0 Yes [id number] 240mg Take 1 Univers calcium 240 4-02 102 capsule by it y of mg capsule 00:00: mouth [place] 00 daily as Medical needed for Branch Constipati on. ferrous 2021-0 Yes [id number] 325mg Take 1 Univers sulfate 325 4-02 102 tablet by ity of mg (65 mg 00:00: mouth 2 [place] iron) 00 (two) Medical tablet times Branch daily. ibuprofen 2021-0 Yes [id number] 600mg Take 1 Univers 600 mg 4-02 102 tablet by ity of tablet 00:00: mouth [place] 00 every 6 Medical (six) Branch hours as needed (Pain). Take with food or milk. ibuprofen 2021-0 Yes [id number] 600mg Take 1 Univers 600 mg 4-02 102 tablet by ity of tablet 00:00: mouth [place] 00 every 6 Medical (six) Branch hours as needed (Pain). Take with food or milk. ibuprofen 2021-0 Yes [id number] 600mg Take 1 Univers 600 mg 4-02 102 tablet by ity of tablet 00:00: mouth [place] 00 every 6 Medical (six) Branch hours as needed (Pain). Take with food or milk. docusate 2021-0 2021- No [id number] 240mg Take 1 Univers calcium 240 4-02 09-19 102 capsule by i ty of mg capsule 00:00: 00:00 mouth once [place] 00 :00 daily as Medical needed for Branch Constipati on. ferrous 2021- No [id number] 325mg Take 1 Univers sulfate 325 02-17 102 tablet by it y of mg (65 mg 00:00: 00:00 [place] iron) 00 :00 (two) Medical tablet times Branch daily. docusate 2021- No [id number] 240mg Take 1 Univers calcium 240 02-17 102 capsule by i ty of mg capsule 00:00: 00:00 mouth once [place] 00 :00 daily as Medical needed for Branch Constipati on. ferrous 2021- No [id number] 325mg Take 1 Univers sulfate 325 02-17 102 tablet by it y of mg (65 mg 00:00: 00:00 [place] iron) 00 :00 (two) Medical tablet times Branch daily. 2021- No [id number] 1{tbl} Take 1 Univers vitamin 02-17 102 tablet by ity of w/FA tablet 00:00: 00:00 [place] :00 daily. Medical Branch Yes [id number] 1{packe Take 1 Univers vit 3-15 t} Packet by ity of 33-iron-fol 00:00: mouth [place] ic-dha 00 daily. Medical (SELECT-OB Branch + DHA) 29 mg iron-1 mg -250 mg combo pack Yes [id number] 1{packe Take 1 Univers vit 3-15 t} Packet by ity of 33-iron-fol 00:00: mouth [place] ic-dha 00 daily. Medical (SELECT-OB Branch + DHA) 29 mg iron-1 mg -250 mg combo pack Yes [id number] 1{packe Take 1 Univers vit 3-15 t} Packet by ity of 33-iron-fol 00:00: mouth [place] ic-dha 00 daily. Medical (SELECT-OB Branch + DHA) 29 mg iron-1 mg -250 mg combo pack Yes [id number] 1{packe Take 1 Univers vit 3-15 t} Packet by ity of 33-iron-fol 00:00: mouth [place] ic-dha 00 daily. Medical (SELECT-OB Branch + DHA) 29 mg iron-1 mg -250 mg combo pack 2021- Yes [id number] 1{packe Take 1 Univers vit 3-15 t} Packet by ity of 33-iron-fol 00:00: mouth [place] ic-dha 00 daily. Medical (SELECT-OB Branch + DHA) 29 mg iron-1 mg -250 mg combo pack Yes [id number] 1{packe Take 1 Univers vit 3-15 t} Packet by ity of 33-iron-fol 00:00: mouth [place] ic-dha 00 daily. Medical (SELECT-OB Branch + DHA) 29 mg iron-1 mg -250 mg combo pack 2021- No [id number] 1{packe Take 1 Univers vit 3-15 09-19 t} Packet by ity of 33-iron-fol 00:00: 00:00 [place] ic-dha 00 :00 daily. Medical (SELECT-OB Branch + DHA) 29 mg iron-1 mg -250 mg combo pack 2021- No [id number] 1{packe Take 1 Univers vit 3-15 09-19 t} Packet by ity of 33-iron-fol 00:00: 00:00 [place] ic-dha 00 :00 daily. Medical (SELECT-OB Branch + DHA) 29 mg iron-1 mg -250 mg combo pack Immunizations Ordered Filled Immunization Date Status Comments [facility] e Immunization Name Name TDAP 2021-12-18 Completed University of 00:00: [facility] TDAP 2021-12-18 Completed University of 00:00: [facility] TDAP 2021-12-18 Completed University of 00:00: [facility] TDAP 2021-12-18 Completed University of 00:00: [facility] TDAP 2021-12-18 Completed University of 00:00: [facility] TDAP 2021-12-18 Completed University of 00:00:00 [facility] TDAP 2021-12-18 Completed University of 00:00:00 [facility] TDAP 2021-12-18 Completed University of 00:00:00 [facility] Influenza Virus 2020-10-25 Completed Universit y of Vaccine Quad .5 mL 00:00:00 [facility] [place] IM 6+ MO Branch Influenza Virus 2020-10-25 Completed Universit y of Vaccine [place] .5 mL 00:00:00 [place] Medical IM 6+ MO Branch Influenza Virus 2020-10-25 Completed Universit y of Vaccine [place] .5 mL 00:00:00 [facility] [place] IM 6+ MO Branch Influenza Virus 2020-10-25 Completed Universit y of Vaccine [place] .5 mL 00:00:00 [facility] [place] IM 6+ MO Branch Influenza Virus 2020-10-25 Completed Universit y of Vaccine [place] .5 mL 00:00:00 [place] Medical IM 6+ MO Branch Influenza Virus 2020-10-25 Completed Universit y of Vaccine [place] .5 mL 00:00:00 [facility] 6+ MO [place] Influenza Virus 2020-10-25 Completed Universit y of Vaccine [place] .5 mL 00:00:00 [facility] 6+ MO [place] Influenza Virus 2020-10-25 Completed Universit y of Vaccine Quad .5 mL 00:00:00 [facility] 6+ MO [place] TDAP 2018-02-21 Completed University of 00:00:00 [facility] TDAP 2018-02-21 Completed University of 00:00:00 [facility] TDAP 2018-02-21 Completed University of 00:00:00 [facility] TDAP 2018-02-21 Completed University of 00:00:00 [facility] TDAP 2018-02-21 Completed University of 00:00:00 [facility] TDAP 2018-02-21 Completed University of 00:00:00 [facility] TDAP 2018-02-21 Completed University of 00:00:00 [facility] TDAP 2018-02-21 Completed University of 00:00:00 [facility] Varicella 2016-08-15 Completed University of (varivax)(chicken 00:00:00 [...] Branch MMR 2016-06-27 Completed University of 00:00:00 [facility] Varicella 2016-06-27 Completed University of (varivax)(chicken 00:00:00 [place] M edical pox) Branch MMR 2016-06-27 Completed University of 00:00:00 [facility] Varicella 2016-06-27 Completed University of (varivax)(chicken 00:00:00 [place] M edical pox) Branch MMR 2016-06-27 Completed University of 00:00:00 [facility] Varicella 2016-06-27 Completed University of (varivax)(chicken 00:00:00 [place] M edical pox) Branch MMR 2016-06-27 Completed University of 00:00:00 [facility] Varicella 2016-06-27 Completed University of (varivax)(chicken 00:00:00 [place] M edical pox) Branch MMR 2016-06-27 Completed University of 00:00:00 [facility] Varicella 2016-06-27 Completed University of (varivax)(chicken 00:00:00 [place] M edical pox) Branch MMR 2016-06-27 Completed University of 00:00:00 [facility] Varicella 2016-06-27 Completed University of (varivax)(chicken 00:00:00 [place] M edical pox) Branch MMR 2016-06-27 Completed University of 00:00:00 [facility] Varicella 2016-06-27 Completed University of (varivax)(chicken 00:00:00 [place] M edical pox) Branch MMR 2016-06-27 Completed University of 00:00:00 [facility] Varicella 2016-06-27 Completed University of (varivax)(chicken 00:00:00 [place] M edical pox) Branch TDAP 2016-04-12 Completed University of 00:00:00 [facility] TDAP 2016-04-12 Completed University of 00:00:00 [facility] TDAP 2016-04-12 Completed University of 00:00:00 [facility] TDAP 2016-04-12 Completed University of 00:00:00 [facility] TDAP 2016-04-12 Completed University of 00:00:00 [facility] TDAP 2016-04-12 Completed University of 00:00:00 [facility] TDAP 2016-04-12 Completed University of 00:00:00 [facility] TDAP 2016-04-12 Completed University of 00:00:00 [facility] Influenza Virus 2015-11-22 Completed Universit y of Vaccine Quad IM 3+ 00:00:00 [facility] Influenza Virus 2015-11-22 Completed Universit y of Vaccine [place] IM 3+ 00:00:00 [facility] Influenza Virus 2015-11-22 Completed Universit y of Vaccine [place] IM 3+ 00:00:00 [facility] Influenza Virus 2015-11-22 Completed Universit y of Vaccine [place] IM 3+ 00:00:00 [facility] Influenza Virus 2015-11-22 Completed Universit y of Vaccine [place] IM 3+ 00:00:00 [facility] Influenza Virus 2015-11-22 Completed Universit y of Vaccine [place] IM 3+ 00:00:00 [facility] Influenza Virus 2015-11-22 Completed Universit y of Vaccine [place] IM 3+ 00:00:00 [facility] Influenza Virus 2015-11-22 Completed Universit y of Vaccine [place] IM 3+ 00:00:00 [facility] Vital Signs Vital Name Observation Time Observation Value Comments Source Systolic blood 2022-08-06 19:54:00 115 mm[Hg] Univer sity of pressure [facility] Diastolic blood 2022-08-06 19:54:00 84 mm[Hg] Unive rsity of pressure [facility] Heart rate 2022-08-06 19:54:00 96 /min [facility] Respiratory rate 2022-08-06 19:54:00 18 /min Univ ersity of [facility] Body height 2022-08-06 19:54:00 152.4 cm [facility] Body weight 2022-08-06 19:54:00 71.033 kg [facility] BMI 2022-08-06 19:54:00 30.58 kg/m2 [facility] Oxygen saturation in 2022-08-06 19:54:00 98 /min [facility] blood by [facility] Pulse oximetry Branch Systolic blood 2022-06-05 18:10:00 112 mm[Hg] Univer sity of pressure [facility] Diastolic blood 2022-06-05 18:10:00 81 mm[Hg] Unive rsity of pressure [facility] Heart rate 2022-06-05 18:10:00 87 /min Universi ty [facility] Body temperature 2022-06-05 18:10:00 36.89 Tanika Univ ersity of [facility] Respiratory rate 2022-06-05 18:10:00 18 /min Univ ersity of [facility] Body height 2022-06-05 18:10:00 152.4 cm Universi ty of [facility] Body weight 2022-06-05 18:10:00 71.623 kg Universi ty of [facility] BMI 2022-06-05 18:10:00 30.84 kg/m2 Universi ty [facility] Systolic blood 2022-04-12 20:06:00 108 mm[Hg] Univer sity of [facility] Diastolic blood 2022-04-12 20:06:00 75 mm[Hg] Unive rsity of pressure [facility] Heart rate 2022-04-12 20:06:00 73 /min Universi ty of [facility] Respiratory rate 2022-04-12 20:06:00 18 /min [facility] Body height 2022-04-12 20:06:00 152.4 cm Universi ty [facility] Body weight 2022-04-12 20:06:00 72.831 kg Universi ty [facility] BMI 2022-04-12 20:06:00 31.36 kg/m2 Universi ty [facility] Procedures Procedure Date / Time Performed Performing Clinician Sour e POCT TEST 2022-06-05 18:19:00 Jeet Allen [facility] Encounters Start End Encounter Admission Attending Care Care Encounter Source Date/Time Date/Time Type Type Clinicians Facility Department ID 2022-08-06 2022-08-06 Outpatient R JEET ALLEN [facility] [id number] Univers 14:30:00 15:18:59 ity of [facility] 2022-08-06 2022-08-06 Office Jeet Allen 1.2.840.114 [id number] Univers 14:30:00 15:18:59 Visit GENARO 350.1.13.10 it y of [place] [facility] [id number] [address] 2022-07-04 2022-07-04 Outpatient R SUZI RANDHAWA [facility] B [id number] Univers 15:00:00 15:00:00 EDISSUZI ity [facility] 2022-07-03 2022-07-03 Outpatient R JEET ALLEN [facility] [id number] Univers 10:00:00 10:00:00 ity [facility] 2022-06-08 2022-06-08 Telephone Jeet Allen 1.2.840.11 [id number] Univers 00:00:00 00:00:00 GEN[place] 350.1.13.10 it y [place] [id number] [address] 2022-06-06 2022-06-06 Outpatient R JEET ALLEN [facility] [id number] Univers 14:00:00 14:00:00 ity [facility] 2022-06-05 2022-06-05 Outpatient R JEET ALLEN [facility] [id number] Univers 13:00:00 13:58:59 ity [facility] 2022-06-05 2022-06-05 Routine Jeet Allen 1.2.840.114 [id number] Univers 13:00:00 13:58:59 GENARO 350.1.13.10 i ty of Visit [place] [id number] [address] 2022-06-05 2022-06-05 Telephone Jeet Allen 1.2.840.11 [id number] Univers 00:00:00 00:00:00 [place] 350.1.13.10 it y [place] [id number] [address] 2022-04-27 2022-04-27 [facility] 1.2.840.114 [id number] Univers 00:00:00 00:00:00 Management GENARO 350.1.13.10 [place] [facility] [id number] [address] 2022-04-24 2022-04-24 Outpatient R JEET ALLEN [facility] [id number] Univers 13:00:00 13:00:00 ity [facility] 2022-04-24 2022-04-24 Outpatient R JEET ALLEN [facility] [id number] Univers 13:00:00 13:00:00 ity [facility] 2022-04-18 2022-04-18 [facility] 1.2.840.114 [id number] Univers 00:00:00 00:00:00 Management GENARO 350.1.13.10 [place] [id number] [address] 2022-04-12 2022-04-12 Office Jeet Allen [facility] 1.2.840.114 [id number] Univers 15:00:00 15:33:29 Visit GENARO 350.1.13.10 it y of WOMEN'S 4.2.7.2.686 [facility] [id number] [address] 2022-04-12 2022-04-12 Outpatient R JEET ALLEN [facility] [id number] Univers 15:00:00 15:33:29 ity of [facility] 2022-04-12 2022-04-12 Outpatient R JEET ALLEN [facility] [id number] Univers 15:00:00 15:00:00 ity [facility] 2022-03-20 2022-03-20 Outpatient R SUZI RANDHAWA [facility] B [id number] Univers 14:30:00 14:30:00 SUZI RANDHAWA ity [facility] 2022-03-19 2022-03-19 Outpatient R JEET ALLEN [facility] [id number] Univers 13:15:00 13:15:00 ity [facility] 2022-02-22 2022-02-22 Outpatient R JEET ALLEN [facility] [id number] Univers 09:30:00 09:30:00 ity [facility] 2022-02-16 2022-02-17 Inpatient P OLYA OKINDRA KATHERIN [id number] Univers 13:21:00 18:00:00 SHERRI ity [facility] 2022-02-16 2022-02-17 Hospital Jeet Allen [facility] 1.2.840.114 [id number] Univers 13:21:00 18:00:00 Encounter AdSherri olvera 350.1.13.10 ity [facility] 4.2.7.2.686 [facility] [id number] [place] 773843 [place] 2022-02-15 2022-02-15 Outpatient R JEET ALLEN [facility] [id number] Univers 13:00:00 13:30:13 ity [facility] 2022-02-15 2022-02-15 Routine Jeet Allen [facility] 1.2.840.114 [id number] Univers 13:00:00 13:30:13 GENARO 350.1.13.10 i ty of Visit WOMENS 4.2.7.2.686 [facility] [id number] [facility] [address] 2022-02-13 2022-02-13 Outpatient R JEET ALLEN [facility] [id number] Univers 10:00:00 10:00:00 ity [facility] 2022-02-08 2022-02-08 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 Adeola [facility] 1.2.8 40.114 [id number] Univers 09:30:00 09:45:00 Visit Jeet Allen 350.1.13.10 [facility] 4.2.7.2.686 [facility] [id number] [address] 2022-02-08 2022-02-08 Outpatient R JEET ALLEN [facility] [id number] Univers 09:30:00 09:30:00 ity [facility] 2022-02-08 2022-02-08 Case Preston Allenn [facility] 1.2.840.114 [id number] Univers 00:00:00 00:00:00 Management GENARO 350.1.13.10 ity of PEDIATRIC 4.2.7.2.686 [facility] [id number] [address] 2022-02-06 2022-02-06 Outpatient R JEET ALLEN [facility] [id number] Univers 08:15:00 08:55:07 ity of [facility] 2022-02-06 2022-02-06 Routine FishJeet [facility] 1.2.840.114 [id number] Univers 08:15:00 08:55:07 GENARO 350.1.13.10 i ty of Visit [facility] 4.2.7.2.686 [facility] [id number] [address] 2022-01-30 2022-01-30 Outpatient R JEET ALLEN [facility] [id number] Univers 13:00:00 14:13:53 ity of [facility] 2022-01-30 2022-01-30 Routine Jeet Allen [facility] 1.2.840.114 [id number] Univers 13:00:00 14:13:53 GENARO 350.1.13.10 i ty of Visit [facility] 4.2.7.2.686 [facility] [id number] [address] 2022-01-30 2022-01-30 Outpatient R JEET ALLEN [facility] [id number] Univers 13:00:00 13:00:00 ity of [facility] 2022-01-30 2022-01-30 Orders Doctor EDWARDS 1.2.840.114 [id number] Univers 00:00:00 00:00:00 Only Unassigned, RONA 350.1.13.10 ity of [place] [facility] 4.2.7.2.686 [facility] [id number] [place] [address] [place] 2022-01-25 2022-01-25 Outpatient R JEET ALLEN [facility] [id number] Univers 13:15:00 13:15:00 ity of [facility] 2022-01-16 2022-01-16 Outpatient R JEET ALLEN [facility] [id number] Univers 13:00:00 13:00:00 ity of [facility] 2022-01-02 2022-01-02 Outpatient R JEET ALLEN [facility] [id number] Univers 08:00:00 08:38:59 ity of [facility] 2022-01-02 2022-01-02 Routine Jeet Allen [facility] 1.2.840.114 [id number] Univers 08:00:00 08:38:59 GENARO 350.1.13.10 i ty of Visit [place] 4.[place].7.2.686 [place] [id number] [address] 2021-12-19 2021-12-19 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 Adeola [facility] 1.2.8 40.114 [id number] Univers 15:15:00 15:30:00 Visit Jeet Allen 350.1.13.10 [facility] 4.2.7.2.[place] [id number] [place] dic[address] 2021-12-19 2021-12-19 Outpatient R JEET ALLEN [facility] [id number] Univers 15:15:00 15:15:00 ity of [facility] 2021-12-18 2021-12-18 Outpatient R JEET ALLEN [facility] [id number] Univers 08:00:00 08:42:01 ity [facility] 2021-12-18 2021-12-18 Routine Jeet Allen [facility] 1.2.840.114 [id number] Univers 08:00:00 08:42:01 GENARO 350.1.13.10 i ty of Visit [place] [id number] [address] 2021-12-11 2021-12-11 Outpatient R JEET ALLEN [facility] [id number] Univers 08:00:00 08:00:00 ity of [facility] 2021-11-23 2021-11-23 Outpatient R JEET ALLEN [facility] [id number] Univers 13:45:00 13:45:00 ity [facility] 2021-11-02 2021-11-02 Outpatient R JEET ALLEN [facility] [id number] Univers 16:00:00 16:00:00 ity [facility] 2021-10-24 2021-10-24 Outpatient R JEET ALLEN [facility] [id number] Univers 13:00:00 13:00:00 ity [facility] 2021-10-09 2021-10-09 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 [facility] 1.2 .840.114 [id number] Univers 14:38:28 15:38:28 Visit Ronaldo Poole RADIOACTIVE WASTE DISPOSAL DISPATCHER 350.1.13.10 ity of REGIONAL 4.2.7.2.686 Osm[place] as MATERNAL [id number] [facility] & CHILD [address] [place] [address] 2021-10-09 2021-10-09 Outpatient P RONALDO POOLE [facility] [id number] Univers 14:45:00 14:45:00 [facility] 2021-09-26 2021-09-26 Outpatient R JEET ALLEN [facility] [id number] Univers 11:00:00 11:26:44 ity [facility] 2021-09-26 2021-09-26 Routine Jeet Allen OKINDRA BRICENO 1.2.840.114 [id number] Univers 10:59:39 11:26:44 GENARO 350.1.13.10 i ty of Visit [place] [id number] [address] 2021-09-18 2021-09-18 Outpatient R JEET ALLEN [facility] [id number] Univers 13:30:00 13:30:00 ity [facility] 2021-09-15 2021-09-15 Outpatient R [facility] [id number] Univers 10:30:00 10:30:00 ity [facility] 2021-09-04 2021-09-04 Outpatient R [facility] [id number] Univers 09:45:00 09:45:00 ity [facility] 2021-08-31 2021-08-31 Initial Jeet Allen 1.2.840.114 [id number] Univers 14:33:19 15:17:26 Genaro 350.1.13.10 i ty of Visit [place]'s [place].2.[place] [facility] [id number] [address] 2021-08-31 2021-08-31 Outpatient R JEET ALLEN [facility] [id number] Univers 14:30:00 14:30:00 ity [facility] 2021-08-22 2021-08-22 Outpatient R AKINSIPE, [facility] [id number] Univers 10:30:00 10:30:00 FAYE ity o f [facility] 2021-08-17 2021-08-17 Outpatient R JEET ALLEN [facility] [id number] Univers 14:30:00 14:30:00 ity [facility] 2021-08-09 2021-08-09 Outpatient P [facility] [id number] Univers 11:30:00 11:30:00 ity [facility] 2021-07-26 2021-07-26 [facility]phone [facility] 1.2.889.254 [id number] Univers 00:00:00 00:00:00 Roshunda R RADIOACTIVE WASTE DISPOSAL DISPATCHER 350.1.13.10 ity of [facility] 4.2.7.2.686 [place] as MATERNAL [id number] Med ical & CHILD 107 [facility] 2021-07-25 2021-07-25 [facility] 1.2.840.114 [id number] Univers 09:34:21 10:03:24 Roshunda R RADIOACTIVE WASTE DISPOSAL DISPATCHER 350.1.13.10 ity of Visit REGIONAL 4.2.7.2.686 [place] as MATERNAL [id number] Med ical & CHILD 107 [facility] 2021-07-25 2021-07-25 [facility] 1.2.840.114 [id number] Univers 09:34:21 10:03:24 Roshunda R RADIOACTIVE WASTE DISPOSAL DISPATCHER 350.1.13.10 ity of Visit REGIONAL 4.2.7.2.686 [place] as MATERNAL [id number] Med ical & CHILD [address] [facility] 2021-07-25 2021-07-25 [facility] [id number] Univers 09:30:00 09:30:00 DINANDA ity o f [facility] 2021-07-18 2021-07-18 Telephone [facility] 1.2.671.892 [id number] Univers 00:00:00 00:00:00 Rossharrinda R RADIOACTIVE WASTE DISPOSAL DISPATCHER 350.1.13.10 ity of REGIONAL 4.2.7.2.686 [place] as MATERNAL [id number] [facility] & CHILD [address] [place] [address] 2021-07-18 2021-07-18 [facility]phone [facility] 1.2.751.850 [id number] Univers 00:00:00 00:00:00 Dinanda R RADIOACTIVE WASTE DISPOSAL DISPATCHER 350.1.13.10 ity of REGIONAL 4.2.7.2.686 [place] as MATERNAL [id number] [facility] & CHILD [address] [place] [address] 2021-06-26 2021-06-26 [facility] 1.2.840.114 [id number] Univers 11:13:01 12:20:19 Dinakrisha R RADIOACTIVE WASTE DISPOSAL DISPATCHER 350.1.13.10 ity of Visit REGIONAL 4.2.7.2.686 [place] as MATERNAL [id number] [address] 2021-06-26 2021-06-26 [facility]patient [facility] [id number] Univers 11:15:00 11:15:00 DINANDA carminey o f [facility] 2021-06-26 2021-06-26 [facility]patient [facility] [id number] Univers 10:45:00 10:45:00 JESSEE gautam o [facility] 2021-06-26 2021-06-26 Orders Doctor EDWARDS 1.2.840.114 [id number] Univers 00:00:00 00:00:00 Only Unassigned, RONA 350.1.13.10 ity of [place] [facility] 4.2.7.2.686 Osmany as [id number] [address] 2021-06-26 2021-06-26 [facility]phone [facility] 1.2.840.114 [id number] Univers 00:00:00 00:00:00 Skyler Alejandro RADIOACTIVE WASTE DISPOSAL DISPATCHER 350.1.13.10 it y of REGIONAL 4.2.7.2.686 [place] as MATERNAL [id number] [facility] & CHILD [address] [place] [address] 2021-05-18 2021-05-18 [facility]phone [facility] 1.2.243.980 [id number] Univers 00:00:00 00:00:00 Maritzaa R RADIOACTIVE WASTE DISPOSAL DISPATCHER 350.1.13.10 ity of REGIONAL 4.2.7.2.686 [place] as MATERNAL [id number] [address] 2021 2021 [facility]phone [facility] 1.2.810.929 [id number] Univers 00:00:00 00:00:00 Jessee R RADIOACTIVE WASTE DISPOSAL DISPATCHER 350.1.13.10 ity of REGIONAL 4.2.7.2.686 [place] as MATERNAL [id number] [address] 2021-05-15 2021-05-15 Outpatient R RALPH [facility] [id number] Univers 16:00:00 16:00:00 JESSEE ity o f [facility] 2021-05-15 2021-05-15 Office [facility] 1.2.840.114 [id number] Univers 15:35:02 15:50:02 Visit Jessee R RADIOACTIVE WASTE DISPOSAL DISPATCHER 350.1.13.10 ity of [facility] 4.2.7.2.686 [place] as MATERNAL [id number] [address] 2021-05-08 2021-05-08 Outpatient R MERVIN [facility] [id number] Univers 13:45:00 13:45:00 SKYLER itsri [facility] 2021-05-08 2021-05-08 Telephone [facility] 1.2.840.114 [id number] Univers 00:00:00 00:00:00 Skyler Alejandro RADIOACTIVE WASTE DISPOSAL DISPATCHER 350.1.13.10 it y of REGIONAL 4.2.7.2.686 [place] as MATERNAL [id number] [facility] ical & CHILD [address] [place] [address] 2021-03-16 2021-03-16 Nurse Visit, Gonzalo Nurse [facility] 1.2 .840.114 [id number] Univers 14:51:57 15:43:49 Visit Faye Rowland RADIOACTIVE WASTE DISPOSAL DISPATCHER 350.1.13. 10 ity of [facility] 4.2.7.2.686 [place] as MATERNAL [id number] [facility] & CHILD [address] [place] [address] 2021-03-16 2021-03-16 Outpatient R JANETT [facility] [id number] Univers 15:00:00 15:00:00 FAYE louy o f [facility] 2021-03-16 2021-03-16 Outpatient R [facility] [id number] Univers 09:30:00 09:30:00 ity [facility] 2021-03-14 2021-03-14 Outpatient R RALPH [facility] [id number] Univers 14:30:00 14:30:00 JESSEE gautam o aidan [facility] 2021-03-09 2021-03-09 Nurse Visit, Gonzalo Nurse [facility] 1.2 .840.114 [id number] Univers 08:51:27 09:31:54 Visit Jessee Rosas RADIOACTIVE WASTE DISPOSAL DISPATCHER 350.1.13.10 ity of [facility] 4.2.7.2.686 [place]sm[place] as MATERNAL [id number] [facility] & CHILD [address] [place] [address] 2021-03-09 2021-03-09 Outpatient R [facility] [id number] Univers 08:00:00 08:00:00 ity [facility] 2021-03-02 2021-03-02 Nurse Visit, Gonzalo Nurse [facility] 1.2 .840.114 [id number] Univers 08:54:34 09:09:34 Visit Jessee Rosas RADIOACTIVE WASTE DISPOSAL DISPATCHER 350.1.13.10 ity of REGIONAL 4.2.7.2.686 [place] as MATERNAL [id number] [facility] ical & CHILD [address] [place] [address] 2021-03-02 2021-03-02 Outpatient [facility] [id number] Univers 09:00:00 09:00:00 DINANDA ity o f [facility] 2021-02-27 2021-02-27 Telephone [facility] 1.2.200.313 [id number] Univers 00:00:00 00:00:00 Rosandryviolet R RADIOACTIVE WASTE DISPOSAL DISPATCHER 350.1.13.10 ity of [facility] 4.2.7.2.686 [place]sm[place] as MATERNAL [id number] [facility] & CHILD [address] [place] [address] 2021-02-27 2021-02-27 [facility]phone [facility] 1.2.266.243 [id number] Univers 00:00:00 00:00:00 Maritzaa R RADIOACTIVE WASTE DISPOSAL DISPATCHER 350.1.13.10 ity of [facility] 4.2.7.2.686 [place]sm[place] as MATERNAL [id number] [facility] & CHILD [address] [place] [address] 2021-02-24 2021-02-24 Office [facility] 1.2.840.114 [id number] Univers 08:47:45 09:36:42 [facility] RADIOACTIVE WASTE DISPOSAL DISPATCHER 350.1.13.10 ity of [facility] 4.2.7.2.686 [place] as MATERNAL [id number] [address] 2021-02-24 2021-02-24 Outpatient [facility] [id number] Univers 08:45:00 08:45:00 NATALIARACQUEL gautam o aidan [facility] 2021-02-24 2021-02-24 Outpatient [facility] [id number] Univers 08:45:00 08:45:00 JESSEE gautam o aidan [facility] 2021-02-24 2021-02-24 Orders Doctor EDWARDS 1.2.840.114 [id number] Univers 00:00:00 00:00:00 Only Unassigned, RONA 350.1.13.10 ity of [place] [facility] 4.2.7.2.686 Osmany as [id number] [address] 2021-02-06 2021-02-06 Outpatient R ROSAS, [facility] [id number] Univers 09:45:00 09:45:00 JESSEE gautam o f [facility] 2021-01-25 2021-01-25 Outpatient R [facility] [id number] Univers 13:30:00 13:30:00 lotus [facility] 2020-12-29 2020-12-29 [facility] [id number] Univers 09:30:00 09:30:00 SKYLERTITUS gautam [facility] 2020-12-27 2020-12-27 [facility] [id number] Univers 08:15:00 08:15:00 SKYLER gautam [facility] 2020-12-27 2020-12-27 [facility] [id number] Univers 08:15:00 08:15:00 SKYLER gautam [facility] 2020-10-27 2020-10-27 Nurse Visit, [facility] Nurse [facility] 1.2 .840.114 [id number] Univers 13:26:29 13:42:30 Visit Skyelr Jeffries RADIOACTIVE WASTE DISPOSAL DISPATCHER 350.1.13.10 ity [facility] 4.2.7.2.686 [place]sm[place] as MATERNAL [id number] Med ical & CHILD [address] [place] [address] 2020-10-27 2020-10-27 Nurse Visit, [facility] 1.2.840.114 [id number] 13:26:29 13:42:30 Visit [facility] RADIOACTIVE WASTE DISPOSAL DISPATCHER 350.1.13.10 Nurse REGIONAL 4.2.7.2.686 MATERNAL [id number] & CHILD [address] [place] [address] 2020-10-27 2020-10-27 Outpatient R MERVIN [facility] [id number] Univers 13:30:00 13:30:00 SKYLER gautam [facility] 2020-10-26 2020-10-26 Telephone Mervin [facility] 1.2.840.114 [id number] Univers 00:00:00 00:00:00 Skyler Alejandro RADIOACTIVE WASTE DISPOSAL DISPATCHER 350.1.13.10 it y of REGIONAL 4.2.7.2.686 [place] as MATERNAL [id number] Med ical & CHILD [address] [place] [address] 2020-10-26 2020-10-26 Telephone [facility] 1.2.840.114 [id number] 00:00:00 00:00:00 Skyler N RADIOACTIVE WASTE DISPOSAL DISPATCHER 350.1.13.10 REGIONAL 4.2.7.2.686 MATERNAL [id number] & CHILD 107 [facility] 2020-10-25 2020-10-25 Office [facility] 1.2.837.714 [id number] Univers 08:33:39 09:04:09 Visit Skyler Alejandro RADIOACTIVE WASTE DISPOSAL DISPATCHER 350.1.13.10 it y of REGIONAL 4.2.7.2.686 [place] as MATERNAL [id number] Med ical & CHILD [address] [place] [address] 2020-10-25 2020-10-25 Office [facility] 1.2.616.155 [id number] 08:33:39 09:04:09 Visit Skyler Alejandro RADIOACTIVE WASTE DISPOSAL DISPATCHER 350.1.13.10 REGIONAL 4.2.7.2.686 MATERNAL [id number] & CHILD 107 [facility] 2020-10-25 2020-10-25 Outpatient [facility] [id number] Univers 08:30:00 08:30:00 SKYLER [facility] 2020-10-10 2020-10-10 Outpatient [facility] [id number] Univers 14:30:00 14:30:00 MARITZAA carminey o f [facility] 2020-09-19 2020-09-19 Outpatient R [facility] [id number] Univers 13:15:00 13:15:00 [facility] 2020-09-15 2020-09-15 Outpatient [facility] [id number] Univers 15:45:00 15:45:00 FAYE ity o f [facility] 2020-09-06 2020-09-06 Outpatient [facility] [id number] Univers 10:00:00 10:00:00 SKYLER sri [facility] 2020-08-22 2020-08-22 Outpatient [facility] [id number] Univers 13:45:00 13:45:00 MARITZAA carminey o f [facility] 2020-08-18 2020-08-18 Outpatient [facility] [id number] Univers 15:15:00 15:15:00 SKYLER ity of [facility] 2020-08-05 2020-08-05 Outpatient R [facility] [id number] Univers 16:40:00 16:40:00 ity of [facility] 2020-07-09 2020-07-09 Refill Doctor [facility] 1.2.840.114 [id number] Univers 00:00:00 00:00:00 Unassigned, RADIOACTIVE WASTE DISPOSAL DISPATCHER 350.1.13.10 ity of [place] [facility] 4.2.7.2.686 Osmany as MATERNAL [id number] [facility] & CHILD [address] [place] [address] 2020-07-08 2020-07-08 Refill Doctor [facility] 1.2.840.114 [id number] Univers 00:00:00 00:00:00 Unassigned [place] 350.1.13.10 ity of [place].7.2.[place] [id number] Hi dical [address] 2020-06-17 2020-06-17 Outpatient R [facility] [id number] Univers 08:00:00 08:00:00 ity of [facility] 2020-06-16 2020-06-16 Telephone Visit, [facility] 1.2.767.588 [id number] Univers 00:00:00 00:00:00 [facility] RADIOACTIVE WASTE DISPOSAL DISPATCHER 350.1.13.10 ity of Nurse [facility] 4.2.7.2.686 Osmany as MATERNAL [id number] [facility] & CHILD [address] [place] [address] 2020-06-06 2020-06-06 Telephone Mevrin, [facility] 1.2.840.114 [id number] Univers 00:00:00 00:00:00 Skyler Alejandro RADIOACTIVE WASTE DISPOSAL DISPATCHER 350.1.13.10 it y of REGIONAL 4.2.7.2.686 [place] as MATERNAL [id number] [facility] & CHILD [address] [place] [address] 2020-06-06 2020-06-06 Refill Doctor [facility] 1.2.840.114 [id number] Univers 00:00:00 00:00:00 Unassigned, RADIOACTIVE WASTE DISPOSAL DISPATCHER 350.1.13.10 ity of [place] [facility] 4.2.7.2.686 Osmany as MATERNAL [id number] [facility] & CHILD [address] [place] [address] 2020-06-03 2020-06-03 Office [facility] 1.2.286.459 [id number] Univers 13:18:54 14:11:50 Visit Skyler Alejandro RADIOACTIVE WASTE DISPOSAL DISPATCHER 350.1.13.10 it y of [facility] 4.2.7.2.686 [place] as MATERNAL [id number] [address] 2020-06-03 2020-06-03 Outpatient [facility] [id number] Univers 13:30:00 13:30:00 SKYLER lotus [facility] 2020-05-31 2020-05-31 Outpatient [facility] [id number] Univers 13:45:00 13:45:00 SKYLER lotus [facility] 2020-05-31 2020-05-31 Outpatient [facility] [id number] Univers 13:45:00 13:45:00 SKYLERTITUS gautam [facility] 2020-05-27 2020-05-27 Telephone [facility] 1.2.840.114 [id number] Univers 00:00:00 00:00:00 Faye Padron RADIOACTIVE WASTE DISPOSAL DISPATCHER 350.1.13.10 ity of [place] [address].2.7.2.686 Osmany as MATERNAL [id number] [address] 2020-05-24 2020-05-24 Outpatient R JANETT [facility] [id number] Univers 15:45:00 15:45:00 FAYE gautam o f [facility] 2020-03-28 2020-03-28 Outpatient Christa ROSAS [facility] [id number] Univers 08:30:00 08:30:00 JESSEE gautam o f [facility] 2020-01-27 2020-01-27 Outpatient Christa ROSAS [facility] [id number] Univers 14:45:00 14:45:00 JESSEE gautam o f [facility] 2019-12-25 2019-12-25 [facility] [id number] Univers 14:32:33 15:39:15 Visit Skyler Alejandro RADIOACTIVE WASTE DISPOSAL DISPATCHER [id number] it y of [facility] 4.2.7.2.686 Osmany as MATERNAL [phone] [facility] & CHILD [address] [place] [address] 2019-12-25 2019-12-25 [id number] Univers 14:00:00 15:39:15 SKYLER gautam [facility] 2019-12-25 2019-12-25 Orders Doctor GRACE [id number] Univers 00:00:00 00:00:00 Only Unassigned, RONA [id number] ity of [place] [facility] [id number] Osmany as [phone] [address] 2019-12-25 2019-12-25 [facility]phone [facility] [id number] Univers 00:00:00 00:00:00 Skyler Alejandro RADIOACTIVE WASTE DISPOSAL DISPATCHER [id number] it y of [facility] 4.2.7.2.686 Osmany as MATERNAL [phone] [facility] ical & CHILD [address] [place] [address] Results Test Description Test Time Test Comments Results Result Comments Source POCT TEST 2022-06-05 18:19:00 Test Item Value Reference Range Interpretation Comme nts POCT PREG (test code = 1605) Negative On board controls acceptable with C Line (test code = 3574) Yes POCT PREG LOT # (test code = 3575) POCT PREG TEST DATE (test code = 3576) [id number] 23:19:00 Test Item Value Reference Range Interpretation [...] FEW MUCU) Urine Source? Clean CatchBASIC METABOLIC [id number] 22:39:00 Test Item Value Reference Range Interpretation [...] GFR) formula.Chronic kidney disease is defined as [facility] kidney damageor GFR <60 mL/min/1.73 m2 for >3 months. CREATININE (test code 0.70 mg/dL 0.55-1.02 N Note change in = CREAT) reference range due to change in reagent. BUN/CREATININE RATIO 20.0 10-20 N (test code = BUN/CREA) CALCIUM (test code = 8.9 mg/dL 8.5-10.1 N CA) HCG SERUM [id number] 22:39:00 Test Item Value Reference Range Interpretation Comments HCG SERUM BETA < 1.0 mIU/mL 0-3 N INTERPRETATIO N:B-HCG (test code = HCG) LEVELS <5 SHOULD BE CONSIDERED "NEGATIVE." *WH EN BODERLINE RESUL TS ARE ENCOUNTERED,PAT IENT SAMPLESSHOULD B E REDRAWN 48 HOURS. 0-1 WEEKS AFTER CONCEPTIO N 5-50 MIU/ML1-2 WEEKS AFTER CONCEPTION 50-5 00 MIU/ML2-3 WEEKS AFTER CONCEPTION 100 -5,000 MIU/ML3-4 WEEKS AFTER CONCEPTION 500- 10,000 MIU/ML4-5 WEEKS AFTER CONCEPTION 1000 -50,000 MIU/ML5-6 WEEKS AFTER CONCEPTION 10,000-100,000 MIU/ML6-8 WEEKS AFTER CON CEPTION 15,000- 200,000 MIU/ML2-3 MONTH S AFTER CONCEPTION 10,000-100,000 MIU/ML - DUP AB/PEL/SC [id number] 22:36:00 Name: JESSENOEMIViolet Orellana [facility] : 2000 Age/S: 18 / F [address] [facility] Unit #: [id number] Loc: JUVENCIO Sainz [address] Phys: Jeet Herrmann NP Acct: [id number] Dis Date: Status: REG ER PHONE #: [phone] Exam Date: 03/20/20196 FAX #: [phone] Reason: PELVIC PAIN EXAMS: CPT CODE: [id number] DUP AB/PEL/SC COMP [id number] REASON FOR EXAM: VAGINAL BLEEDING/PELVIC PAIN EXAM ORDER DATE: 03/20/2019 9:42 PM Attending M.D.: Jeet Herrmann NP PROCEDURE: - US PELVIS COMPLETE, - US TRANSVAGINAL NON OB, - DUP AB/PEL/SC COMP FINDINGS: The transabdominal ultrasound shows the uterus measured 7.5 x 3.7 cm. The ovaries were not seen on the transabdominal exam. No evidence of free fluid or adnexal mass onthe transabdominal exam. The transvaginal ultrasound shows the endometrial stripe measured 0.5 cm with an IUD device present. The right ovary measured 1.7 x 1.5 cm. The left ovary measured 3.1 x 3 cm with a cyst measuring 2 cm. Unremarkable ovarian flow is seen. Duplex scans of the ovarian arteries were performed. Meng scale images were supplemented with color-flow Doppler. Doppler flow velocity analysis (duplex Doppler) was performed. No fluid seen in the cul-de-sac. No evidence of IUP. IMPRESSION: Left ovarian cyst (2 cm). at 2236 Reported and signed by: Leonel Rodgers M.D. CC: Jeet Herrmann NP Technologist: Anat Barroso RDMS Trnvtb Date/Time: 03/20/2019 (2235) [email or web address] Orig Print D/T: S: 03/20/2019 (2238) Probe: PAGE 1 Signed Report- US TRANSVAGINAL NON [id number] 22:36:00 Name: ALKA MOLINA V [facility] : 2000 Age/S: 18 / F [address] [facility] Unit #: [id number] Loc: JUVENCIO Sainz [address] Phys: Jeet Herrmann NP Acct: [id number] Dis Date: Status: REG ER PHONE #: [phone] Exam Date: 03/20/20192215 FAX #: [phone] Reason: VAGINAL BLEEDING/PELVIC PAIN EXAMS: CPT CODE: [id number] [place] [id number] REASON FOR EXAM: VAGINAL BLEEDING/PELVIC PAINEXAM ORDER DATE: 03/20/2019 9:42 PM Attending Rosi: Jeet Herrmann NP PROCEDURE: - US PELVIS COMPLETE, -US TRANSVAGINAL NON OB, - DUP AB/PEL/SC COMP FINDINGS: The transabdominal ultrasound shows the uterus measured 7.5 x 3.7 cm. The ovaries were not seen on the transabdominal exam. No evidence of free fluid or adnexal mass on the transabdominal exam. The transvaginal ultrasound shows the endometrial stripe measured 0.5 cm with an IUD device present. The right ovary measured 1.7 x 1.5 cm. The left ovary measured 3.1 x 3 cm with a cyst measuring 2 cm. Unremarkable ovarian flow is seen. Duplex scans of the ovarian arteries were performed. Meng scale images were supplemented with color-flow Doppler. Doppler flow velocity analysis (duplex Doppler) was performed. No fluid seen in the cul-de-sac. No evidence of IUP. IMPRESSION: Left ovarian cyst (2 cm). at 2236 Reported and signed by: Leonel Rodgers M.D. CC: Jeet Herrmann NP Technologist: Anat Barroso RDMS Trnscb Date/Time: 03/20/2019 (2235) JackleineL Orig Print D/T: S: 03/20/2019 (2238) Probe:[id number] PAGE 1 Signed Report- US PELVIS [id number] 22:36:00 Name: ALKA MOLINA V [facility] : 2000 Age/S: 18 / F [address] [facility] Unit #: [id number] Loc: JUVENCIO Sainz [address] Phys: Jeet Herrmann NP Acct: [id number] Dis Date: Status: REG ER PHONE #: [phone] Exam Date: 03/20/20192215 FAX #: [phone] Reason: VAGINAL BLEEDING/PELVIC PAIN EXAMS: CPT CODE: [id number] US PELVIS COMPLETE [id number] REASON FOR EXAM: VAGINAL BLEEDING/PELVIC PAIN EXAMORDER DATE: 03/20/2019 9:42 PM Attending Rosi: Jeet Herrmann NP PROCEDURE: - US PELVIS COMPLETE, - US TRANSVAGINAL NON OB, - DUP AB/PEL/SC COMP FINDINGS: The transabdominal ultrasound shows the uterus measured 7.5 x 3.7 cm. The ovaries were not seen on the transabdominal exam. No evidence of free fluid or adnexal mass on the transabdominal exam. The transvaginal ultrasound shows the endometrial stripe measured 0.5 cm with an IUD device present. The right ovary measured 1.7 x 1.5 cm. The left ovary measured 3.1 x 3 cm with a cyst measuring 2 cm. Unremarkable ovarian flow is seen. Duplex scans of the ovarian arteries were performed. Meng scale images were supplemented with color-flow Doppler. Doppler flow velocity analysis (duplex Doppler) was performed. No fluid seen in the cul-de-sac. No evidence ofIUP. IMPRESSION: Left ovarian cyst (2 cm). at 2236 Reported and signed by: Leonel Rodgers M.D. CC: Jeet Herrmann NP Technologist: Anat Barroso RDMS Trnscb Date/Time: 03/20/2019 (2235) [place] Orig Print D/T: S: 03/20/2019 (8201) Probe: PAGE 1 Signed ReportBASIC METABOLIC PANEL 2019-03-20 22:30:00 Test Item Value Reference Range Interpretation [...] code = CA) mg/dL 8.5-10.1 HCG SERUM [id number] 22:30:00 Test Item Value Reference Range Interpretation Comments HCG SERUM BETA (test code = HCG) mIU/mL 0-3 CBC W/O [id number] 22:27:00 Test Item Value Reference Range Interpretation [...] fL 6.7-11.0 N = MPV) CBC W/O [id number] 22:13:00 Test Item Value Reference Range Interpretation [...]
[2022-09-09 03:41] LABS: Urine Blood Negative (Negative); Urine Glucose Negative (Negative); Urine Protein Negative (Negative); Urine Specific Gravity <=1.005 (1.005-1.030)
[2022-09-09] MEDS ORDERED: ONDANSETRON 4 MG/2 ML VIAL ONE ×2 (03:51→04:24)
[2022-09-09] MEDS ORDERED: NA CHLORIDE 0.9% 1,000 ML ONE (03:51)
[2022-09-09] MEDS ORDERED: KETOROLAC 30 MG/ML INJ ONE (03:51)
[2022-09-09] MEDS ORDERED: MORPHINE 4 MG/ML SYR ONE (03:51)
[2022-09-09 04:04] LABS: Urine Specific Gravity/Preg 1.005 (1.005-1.030)
[2022-09-09 04:09] LABS: Hematocrit 42.4 % (36.0-45.0); MCV 82.9 fL (80-100); RBC Red Blood Cell Count 5.11 M/uL (3.86-4.86)
[2022-09-09 04:41] LABS: Albumin 4.3 g/dL (3.4-5.0); Bilirubin Total 0.4 mg/dL (0.2-1.0); Potassium 3.4 mmol/L (3.5-5.1); Protein, Total 8.4 g/dL (6.4-8.2)
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
[2022-09-09] MEDS ORDERED: POTASSIUM 25 MEQ EFFERV TAB ONE (05:15)
[2022-09-09 06:19] VITALS: TEMP 98
[2022-09-09 06:30] VITALS: BP 116/74; O2SAT 100
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
== END 2022-09-09 05:25 | disposition home or self-care (01) ==
LOC: ER 03:12
DX: S09.90XA Unspecified injury of head, initial encounter (principal); S16.1XXA Strain of muscle, fascia and tendon at neck level, initial encounter; S29.011A Strain of muscle and tendon of front wall of thorax, initial encounter; S20.229A Contusion of unspecified back wall of thorax, initial encounter; S40.021A Contusion of right upper arm, initial encounter; E87.6 Hypokalemia; Y04.8XXA Assault by other bodily force, initial encounter; F32.A Depression, unspecified
CPT/HCPCS: 96361; 85025; 36415; 81025; 82565; 81003; 80053; 70450; 72125; 71260; 74177; 73060; 96375; 96374; 99284; Q9967; J7030; J2405 ×2

== ENCOUNTER 2024-12-21 22:37 | Emergency (ER) | payer OTHER ==
--- OUTSIDE RECORDS SUMMARY | 2024-12-21 22:42 | XMS REPORT | Continuity of Care Document ---
Author Name Unknown Address [address] [facility]. [address] [place] [address] [facility] thconnect Address [address] [facility] [address] [place] [address] Care Team Providers Care Plant Hr Manager Name Role Phone PCP, PATIENT DOES NOT HAVE A Primary Care Physic mitch Unavailable ROSALES ARAYA Attending Clinician Unavailable Faye Ceballos Attending Clinician + FAYE ROWLAND Attending Clinician Unavail able OBI-EDUARD JIA Attending Clinician Unavailab le OBI-EDUARD JIA Attending Clinician Unavailab ESME Ayala Attending Clinician Unavaila BIJAL Alvares Attending Clinician Unavailable Bijal Reed Attending Clinician [phone] ROEL BRICENO Attending Clinician Unavailable Roel Brooks Attending Clinician [phone] Alejandra Viveros Attending Clinician [phone] HEATHER AVELAR Attending Clinician Unavailable Heather Avelar PA-C Attending Clinician [phone] Unknown, Attending Attending Clinician Unavailab Sonia Hannah LMSW Attending Clinician Unava ilable 2, [facility] Attending Clinician Unavailable RENAN AC Attending Clinician Unavailable Dieter Hsu Attending Clinician [phone] [facility], [facility] Temp Attending Clinician Alice vailable Doctor Unassigned, Mancos Attending Clinician U navailable Pcp, Patient Does Not Have A Attending Clinician JEET ALLEN Attending Clinician Unavailable Jeet Allen MD Attending Clinician [phone] SUZI RANDHAWA Attending Clinician UnavailSUZI Garcias Attending Clinician UnavailSHERRI Gresham Attending Clinician Unavailable Sherri Dasilva MD Attending Clinician [phone] Pob, [facility] Main Attending Clinician Unavailangel de dios [facility], [facility] Unavaila Ronaldo Watters MD Attending Clinician [phone] RONALDO POOLE Attending Clinician Unavailable RONALDO POOLE Attending Clinician Unavailable Jessee Ricketts Attending Clinician [phone] JESSEE ROSAS Attending Clinician UnavailSkyler Davey Attending Clinician [phone] SKYLER JEFFRIES Attending Clinician Unavailangel e Visit, [facility] Nurse Attending Clinician Unava ilable Janett NUNEZP, Faye Padron Attending Clinician + BIJAL HILL Admitting Clinician Unavailable SHERRI DASILVA Admitting Clinician Unavailable Sherri Dasilva MD Admitting Clinician [phone] Payers Payer Name Policy Type Policy Number Effective Date Expirati on Date Source [facility] [id number] 2024 [facility]:00[id number]24 [facility] [id number] 2023 00:00:00 MEDICAID PENDING PENDING 2021 00:00:00 Problems Condition Name Condition Details Condition Category Status Onset Date Resolution Date Last Treatment Date Treating Clinician Comments Source Bacterial vaginosis Bacterial vaginosis Disease Active 8-18 00:00: 00 [facility] BMI 34.0-34.9, adult BMI 34.0-34.9, adult Disease Active 8-14 00:00: 00 [facility] Depression , unspecifie d depression type Depression , unspecifie d depression type Disease Active 8 00:00: 00 [facility] Presence of intrauteri ne contracept flavia device - Kyleena since 06/08 Presence of intrauteri ne contracept flavia device - Kyleena since 06/08 Disease Active 07-01 00:00: 00 [facility] Need for HPV vaccinatio n Need for HPV vaccinatio n Disease Active 07-01 00:00: 00 [facility] Papanicola ou smear of cervix with low grade squamous intraepith elial lesion (LGSIL) Papanicola ou smear of cervix with low grade squamous intraepith elial lesion (LGSIL) Disease Active 07-18 00:00: 00 Overview: Formattin g of this note might be different from the original. 06/2021 LGSIL, patient will have repeat pap smear in 3 years (routine screening ) [facility] History of syphilis History of syphilis Disease Active 8 00:00: 00 [facility] Vaginal discharge Vaginal discharge Disease Active 4 00:00: 00 [facility] Acute intractabl e headache, unspecifie d headache type Acute intractabl e headache, unspecifie d headache type Disease Resolve d 2020-11 1-10 00:00: 00 2023-07-01 00:00:00 2023-07-01 14:37:32 [facility] Multiparit y Multiparit y Disease Resolve d 8 00:00: 00 2023-07-01 00:00:00 2023-07-01 14:37:28 [facility] Overweight (BMI 25.0-29.9) Overweight (BMI 25.0-29.9) Disease Resolve d 2-07 00:00: 00 2023-07-01 00:00:00 2023-07-01 14:37:26 [facility] Uterine contractio ns during Uterine contractio ns during Disease Resolve d 2022-0 4-01 00:00: 00 2022-04-12 00:00:00 2022-04-12 15:40:34 [facility] Liveborn infant, of chang , born in hospital by vaginal delivery Liveborn , of chang , born in hospital by vaginal delivery Disease Resolve d 2021-0 4-01 00:00: 00 2022-04-12 00:00:00 2022-04-12 15:40:39 [facility] Supervisio n of high risk in third trimester Supervisio n of high risk in third trimester Disease Resolve d 1-09 00:00: 00 2022-04-12 00:00:00 2022-04-12 15:40:30 [facility] Gonococcal infection (acute) of lower genitourin danay tract Gonococcal infection (acute) of lower genitourin danay tract Disease Resolve d 2019-11 2-09 00:00: 00 2021-09-03 00:00:00 2021-09-03 16:12:21 [facility] Chlamydia trachomati s infection of lower genitourin danay sites Chlamydia trachomati s infection of lower genitourin danay sites Disease Resolve d 2-10 00:00: 00 2021-09-03 00:00:00 2021-09-03 16:12:18 [facility] Screening examinatio n for STD (sexually transmitte d disease) Screening examinatio n for STD (sexually transmitte d disease) Disease Resolve d 2-07 00:00: 00 2021-09-03 00:00:00 2021-09-03 16:12:14 [facility] 39 weeks gestation of 39 weeks gestation of Disease Resolve d 0 6-28 00:00: 00 2019-12-25 00:00:00 2019-12-25 14:37:25 [facility] [place] contractio ns [place] contractio ns Disease Resolve d 0 4-06 00:00: 00 2019-12-25 00:00:00 2019-12-25 14:37:16 [facility] Upper respirator y tract infection, unspecifie d type Upper respirator y tract infection, unspecifie d type Disease Resolve d 4-06 00:00: 00 2019-12-25 00:00:00 2019-12-25 14:37:18 [facility] Immune to varicella Immune to varicella Disease Resolve d 1-09 00:00: 00 2019-12-25 00:00:00 2019-12-25 14:37:23 [facility] Rubella immune Rubella immune Disease Resolve d 1-09 00:00: 00 2019-12-25 00:00:00 2019-12-25 14:37:21 [facility] Nausea/vom iting in Nausea/vom iting in Disease Resolve d 2016-11 1- 00:00: 00 2019-12-25 00:00:00 2019-12-25 14:37:23 [facility] Nausea/vom iting in Nausea/vom iting in Disease Resolve d 2016-11 00:00: 00 2019-12-25 00:00:00 2019-12-25 14:37:23 [facility] (spontaneo us vaginal delivery) (spontaneo us vaginal delivery) Disease Resolve d 9-06 00:00: 00 2019-12-25 00:00:00 2019-12-25 14:37:19 [facility] Supervisio n of high-risk of young primigravi da Supervisio n of high-risk of young primigravi da Disease Resolve d 3-15 00:00: 00 2019-12-25 00:00:00 2019-12-25 14:37:20 [facility] Obesity affecting in third trimester Obesity affecting in third trimester Disease Resolve d 1-08 00:00: 00 2019-12-25 00:00:00 2019-12-25 14:37:22 [facility] Single liveborn infant delivered vaginally Single liveborn delivered vaginally Disease Resolve d 6-29 00:00: 00 2018-06-19 00:00:00 2018-06-19 14:30:08 [facility] High risk teen in first trimester High risk teen in first trimester Disease Resolve d 2016-11 1- 00:00: 00 2017-11-26 00:00:00 2017-11-26 16:26:05 [facility] Oral contracept flavia use Oral contracept flavia use Disease Resolve d 5-24 00:00: 00 2017-11-26 00:00:00 2017-11-26 16:25:49 [facility] Excessive weight gain during , third trimester Excessive weight gain during , third trimester Disease Resolve d 8- 00:00: 00 2017-11-26 00:00:00 2017-11-26 16:25:46 [facility] pyelectasi s pyelectasi s Disease Resolve d 5- 00:00: 00 2017-11-26 00:00:00 2017-11-26 16:25:56 [facility] Rubella non-immune status, antepartum Rubella non-immune status, antepartum Disease Resolve d 2- 00:00: 00 2017-11-26 00:00:00 2022-06-03 00:39:21 [facility] Susceptibl e to varicella (non-immun e), currently Susceptibl e to varicella (non-immun e), currently Disease Resolve d 2- 00:00: 00 2017-11-26 00:00:00 2022-06-03 00:39:21 [facility] Active labor at term Active labor at term Disease Resolve d 8- 00:00: 00 2016-07-24 00:00:00 2016-07-24 15:19:05 [facility] Antepartum anemia in third trimester Antepartum anemia in third trimester Disease Resolve d 5- 00:00: 00 2016-07-24 00:00:00 2016-07-24 15:19:05 [facility] Nausea and vomiting during prior to 22 weeks gestation Nausea and vomiting during prior to 22 weeks gestation Disease Resolve d 1 00:00: 00 2016-07-24 00:00:00 2016-07-24 16:21:41 [facility] Nausea and vomiting during prior to 22 weeks gestation Nausea and vomiting during prior to 22 weeks gestation Disease Resolve d 1-08 00:00: 00 2016-07-24 00:00:00 2016-07-24 16:21:41 [facility] Supervisio n of high-risk of young primigravi da, first trimester Supervisio n of high-risk of young primigravi da, first trimester Disease Resolve d 1-05 00:00: 00 2016-01-31 00:00:00 2016-01-31 13:35:29 [facility] Allergies, Adverse Reactions, Alerts Allergy Name Allergy Type Status Severity Reaction(s) Onset Date Inactive Date Treating Clinician Comments Source NO KNOWN ALLERGIE S Drug Class Active [facility] Family History Family Member Diagnosis Comments Start Date Stop Date Sourc e Paternal grandmother Cancer [facility] Social History Social Habit Start Date Stop Date Quantity Comments Source [facility] History of Social function 2024-08-18 00:00:00 2024-08-18 00:00:00 [facility] Alcoholic beverage intake 2024-08-18 00:00:00 2024-08-18 00:00:00 0 /d [facility] Tobacco use and exposure 2024-08-18 00:00:00 2024-08-18 00:00:00 Smokeless tobacco non-user [facility] Alcohol intake 2023-12-28 00:00:00 2023-12-28 00:00:00 0 /d [facility] Tobacco Comment 2023-07-01 00:00:00 2023-07-01 00:00:00 3-4 cigarettes per day x 3 years [facility] Exposure to SARS-CoV-2 (event) 2022-05-26 00:00:00 2022-06-05 12:59:00 Not sure [facility] History of tobacco use 2021-06-18 00:00:00 Cigarette Smoker [facility] Sex assigned at 2000 00:00:00 2000 00:00:00 [facility] Smoking Status Start Date Stop Date Source Smokes tobacco daily 2024-08-18 00:00:00 [facility] Ex-smoker 2021-06-26 00:00:00 2021-06-26 [facility]00[facility] Medications Ordered Medication Name Filled Medication Name Start Date Stop Date Current Medication? Ordering Clinician Indication Dosage Frequency Signature (SIG) Comments Components Source metroNIDAZO LE 500 mg tablet 2023-11 0- 00:00: 00 Yes [id number] 500mg Take 1 tablet by mouth in the morning and 1 tablet in the evening. [facility] lidocaine-r acepinep-te tracaine (L.E.T. (LIDO-EPINE PH-TETRA)) 4-0.05-0.5 % topical gel 3 mL 05-12 00:15: 00 05-11 23:48 :00 No 3mL 3 mL, Topical, ONCE, 1 dose, On Sat05/11/24 at 1915, Routine [facility] metroNIDAZO LE (FLAGYL) 500 mg tablet - 00:00: 00 01-06 05:59 :00 No [id number] 500mg Take 1 tablet by mouth every 12 (twelve) hours for 7 days. [facility] fluconazole (DIFLUCAN) 150 mg tablet - 00:00: 00 12-30 05:59 :00 No [id number] 150mg Take 1 tablet by mouth once now for 1 dose. [facility] BUSPIRONE 5 mg tablet 2022-11 00:00: 00 Yes [id number] 5mg TAKE 1 TABLET BY MOUTH IN THE MORNING AND IN THE EVENING [facility] BUPROPION XL 150 mg 24 hr tablet 2022-11 00:00: 00 Yes [id number] 150mg TAKE 1 TABLET BY MOUTH EVERY DAY IN THE MORNING [facility] buPROPion XL 150 mg 24 hr tablet 2022-11 0 00:00: 00 09-18 00:00 :00 No [id number] 150mg Take 1 tablet by mouth in the morning. [facility] busPIRone 5 mg tablet 2022-11 0 00:00: 00 09-18 00:00 :00 No [id number] 5mg Take 1 tablet by mouth in the morning and 1 tablet in the evening. [facility] FLUoxetine 20 mg capsule 2022-11 0 00:00: 00 09-17 00:00 :00 No [id number] 20mg Take 1 capsule by mouth in the morning. [facility] metroNIDAZO LE (FLAGYL) 500 mg tablet 2022-11 0 00:00: 00 09-17 00:00 :00 No [id number] 500mg Take 1 tablet by mouth every 12 (twelve) hours. [facility] Nitrofurant oin&Nit. Macrocryst (MACROBID) 100 mg capsule 2022-11 0 00:00: 00 09-17 00:00 :00 No [id number] 100mg Take 1 capsule by mouth in the morning and 1 capsule in the evening. [facility] metroNIDAZO LE (FLAGYL) 500 mg tablet 8 00:00: 00 07-13 04:59 :00 No [id number] 500mg Take 1 tablet by mouth every 12 (twelve) hours for 7 days. [facility] buPROPion SR (WELLBUTRIN SR) 100 mg SR tablet 08-06 00:00: 00 09-17 00:00 :00 No [id number] 100mg Take 1 tablet by mouth in the morning and 1 tablet in the evening. [facility] buPROPion SR (WELLBUTRIN SR) 100 mg SR tablet 06-11 00:00: 00 08-06 00:00 :00 No [id number] 100mg Take 1 tablet by mouth in the morning and 1 tablet in the evening. [facility] levonorgest reL (KYLEENA) IUD 1 Device 06-05 20:15: 00 06-05 19:05 :00 No [id number] 1{devic e} [facility] DULoxetine (CYMBALTA) 20 mg capsule 7-19 00:00: 00 08-06 00:00 :00 No [id number] 20mg Take 1 capsule by mouth in the morning. [facility] metroNIDAZO LE 500 mg tablet 6-10 00:00: 00 05-05 04:59 :00 No [id number] 500mg Take 1 tablet by mouth every 12 (twelve) hours for 7 days. Do not drink alcohol while taking this medication . [facility] metroNIDAZO LE 500 mg tablet 6- 00:00: 00 04-26 04:59 :00 No [id number] 500mg Take 1 tablet by mouth every 12 (twelve) hours for 7 days. Do not drink alcohol while taking this medication . [facility] miSOPROStoL 200 mcg tablet 5-26 00:00: 00 08-06 00:00 :00 No [id number] 200ug Take 1 tablet by mouth 2 (two) times daily. Take the night before and the morning of the procedure [facility] ibuprofen 600 mg tablet -02 00:00: 00 07-01 00:00 :00 No [id number] 102 600mg Take 1 tablet by mouth every 6 (six) hours as needed (Pain). Take with food or milk. [facility] docusate calcium 240 mg capsule 4-02 00:00: 00 08-06 00:00 :00 No [id number] 102 240mg Take 1 capsule by mouth once daily as needed for Constipati on. [facility] ferrous sulfate 325 mg (65 mg iron) tablet 4-02 00:00: 00 08-06 00:00 :00 No [id number] 102 325mg Take 1 tablet by mouth 2 (two) times daily. [facility] vitamin w/FA tablet 4-02 00:00: 00 04-12 00:00 :00 No [id number] 102 1{tbl} Take 1 tablet by mouth daily. [facility] vit 33-iron-fol ic-dha (SELECT-OB + DHA) 29 mg iron-1 mg -250 mg combo pack 3-15 00:00: 00 08-06 00:00 :00 No [id number] 1{packe t} Take 1 Packet by mouth daily. [facility] terconazole 0.8 % vaginal cream 4-12 00:00: 00 05-15 00:00 :00 No [id number] 1{appli cator} Insert 1 Applicator into vagina at bedtime. [facility] Immunizations Ordered Immunization Name Filled Immunization Name Date Status Comments Source TD Pres-Free 2024-05-11 00:00:00 Completed [facility] TD Pres-Free 2024-05-11 00:00:00 Completed [facility] Influenza Virus Vaccine Quad IM, Preserv and ABX Free 6 MO-64 YRS (FLUCELVAX) 2023-09-17 00:00:00 Completed [facility] Influenza Virus Vaccine Quad IM, Preserv and ABX Free 6 MO-64 YRS (FLUCELVAX) 2023-09-17 00:00:00 Completed [facility] HPV9 2023-07-01 00:00:00 Completed [facility] HPV9 2023-07-01 00:00:00 Completed [facility] HPV9 2023-07-01 00:00:00 Completed [facility] HPV9 2023-07-01 00:00:00 Completed [facility] TDAP 2021-12-18 00:00:00 Completed [facility] TDAP 2021-12-18 00:00:00 Completed [facility] TDAP 2021-12-18 00:00:00 Completed [facility] TDAP 2021-12-18 00:00:00 Completed [facility] TDAP 2021-12-18 00:00:00 Completed [facility] TDAP 2021-12-18 00:00:00 Completed [facility] TDAP 2021-12-18 00:00:00 Completed [facility] TDAP 2021-12-18 00:00:00 Completed [facility] TDAP 2021-12-18 00:00:00 Completed [facility] TDAP 2021-12-18 00:00:00 Completed [facility] TDAP 2021-12-18 00:00:00 Completed [facility] TDAP 2021-12-18 00:00:00 Completed [facility] TDAP 2021-12-18 00:00:00 Completed [facility] Influenza Virus Vaccine Quad .5 mL IM 6+ MO 2020-10-25 00:00:00 Completed [facility] Influenza Virus Vaccine Quad .5 mL IM 6+ MO 2020-10-25 00:00:00 Completed [facility] Influenza Virus Vaccine Quad .5 mL IM 6+ MO 2020-10-25 00:00:00 Completed [facility] Influenza Virus Vaccine Quad .5 mL IM 6+ MO 2020-10-25 00:00:00 Completed [facility] Influenza Virus Vaccine Quad .5 mL IM 6+ MO 2020-10-25 00:00:00 Completed [facility] Influenza Virus Vaccine Quad .5 mL IM 6+ MO 2020-10-25 00:00:00 Completed [facility] Influenza Virus Vaccine Quad .5 mL IM 6+ MO 2020-10-25 00:00:00 Completed [facility] Influenza Virus Vaccine Quad .5 mL IM 6+ MO 2020-10-25 00:00:00 Completed [facility] Influenza Virus Vaccine Quad .5 mL IM 6+ MO 2020-10-25 00:00:00 Completed [facility] Influenza Virus Vaccine Quad .5 mL IM 6+ MO 2020-10-25 00:00:00 Completed [facility] Influenza Virus Vaccine Quad .5 mL IM 6+ MO 2020-10-25 00:00:00 Completed [facility] Influenza Virus Vaccine Quad .5 mL IM 6+ MO (FLUZONE/FLULAVAL/F LUARIX) 2020-10-25 00:00:00 Completed [facility] Influenza Virus Vaccine Quad .5 mL IM 6+ MO (FLUZONE/FLULAVAL/F LUARIX) 2020-10-25 00:00:00 Completed [facility] TDAP 2018-02-21 00:00:00 Completed [facility] TDAP 2018-02-21 00:00:00 Completed [facility] TDAP 2018-02-21 00:00:00 Completed [facility] TDAP 2018-02-21 00:00:00 Completed [facility] TDAP 2018-02-21 00:00:00 Completed [facility] TDAP 2018-02-21 00:00:00 Completed [facility] TDAP 2018-02-21 00:00:00 Completed [facility] TDAP 2018-02-21 00:00:00 Completed [facility] TDAP 2018-02-21 00:00:00 Completed [facility] TDAP 2018-02-21 00:00:00 Completed [facility] TDAP 2018-02-21 00:00:00 Completed [facility] TDAP 2018-02-21 00:00:00 Completed TDAP 2018-02-21 00:00:00 Completed Varicella (varivax)(chicken pox) 2016-08-15 00:00:00 Completed [facility] Varicella (varivax)(chicken pox) 2016-08-15 00:00:00 Completed [facility] Varicella (varivax)(chicken pox) 2016-08-15 00:00:00 Completed [facility] Varicella (varivax)(chicken pox) 2016-08-15 00:00:00 Completed [facility] Varicella (varivax)(chicken pox) 2016-08-15 00:00:00 Completed [facility] Varicella (varivax)(chicken pox) 2016-08-15 00:00:00 Completed [facility] Varicella (varivax)(chicken pox) 2016-08-15 00:00:00 Completed [facility] Varicella (varivax)(chicken pox) 2016-08-15 00:00:00 Completed [facility] Varicella (varivax)(chicken pox) 2016-08-15 00:00:00 Completed [facility] Varicella (varivax)(chicken pox) 2016-08-15 00:00:00 Completed [facility] Varicella (varivax)(chicken pox) 2016-08-15 00:00:00 Completed [facility] Varicella (varivax)(chicken pox) 2016-08-15 00:00:00 Completed Varicella (varivax)(chicken pox) 2016-08-15 00:00:00 Completed MMR 2016-06-27 00:00:00 Completed [facility] Varicella (varivax)(chicken pox) 2016-06-27 00:00:00 Completed [facility] MMR 2016-06-27 00:00:00 Completed [facility] Varicella (varivax)(chicken pox) 2016-06-27 00:00:00 Completed [facility] 2016-06-27 00:00:00 Completed [facility] Varicella (varivax)(chicken pox) 2016-06-27 00:00:00 Completed [facility] 2016-06-27 00:00:00 Completed [facility] Varicella (varivax)(chicken pox) 2016-06-27 00:00:00 Completed [facility] 2016-06-27 00:00:00 Completed [facility] Varicella (varivax)(chicken pox) 2016-06-27 00:00:00 Completed [facility] 2016-06-27 00:00:00 Completed [facility] Varicella (varivax)(chicken pox) 2016-06-27 00:00:00 Completed [facility] 2016-06-27 00:00:00 Completed [facility] Varicella (varivax)(chicken pox) 2016-06-27 00:00:00 Completed [facility] 2016-06-27 00:00:00 Completed [facility] Varicella (varivax)(chicken pox) 2016-06-27 00:00:00 Completed [facility] 2016-06-27 00:00:00 Completed [facility] Varicella (varivax)(chicken pox) 2016-06-27 00:00:00 Completed [facility] 2016-06-27 00:00:00 Completed [facility] Varicella (varivax)(chicken pox) 2016-06-27 00:00:00 Completed [facility] 2016-06-27 00:00:00 Completed [facility] Varicella (varivax)(chicken pox) 2016-06-27 00:00:00 Completed [facility] 2016-06-27 00:00:00 Completed [facility] Varicella (varivax)(chicken pox) 2016-06-27 00:00:00 Completed MMR 2016-06-27 00:00:00 Completed [facility] Varicella (varivax)(chicken pox) 2016-06-27 00:00:00 Completed TDAP 2016-04-12 00:00:00 Completed [facility] TDAP 2016-04-12 00:00:00 Completed [facility] TDAP 2016-04-12 00:00:00 Completed [facility] TDAP 2016-04-12 00:00:00 Completed [facility] TDAP 2016-04-12 00:00:00 Completed [facility] TDAP 2016-04-12 00:00:00 Completed [facility] TDAP 2016-04-12 00:00:00 Completed [facility] TDAP 2016-04-12 00:00:00 Completed [facility] TDAP 2016-04-12 00:00:00 Completed [facility] TDAP 2016-04-12 00:00:00 Completed [facility] TDAP 2016-04-12 00:00:00 Completed [facility] TDAP 2016-04-12 00:00:00 Completed TDAP 2016-04-12 00:00:00 Completed Influenza Virus Vaccine Quad IM 3+ 2015-11-22 00:00:00 Completed [facility] Influenza Virus Vaccine Quad IM 3+ 2015-11-22 00:00:00 Completed [facility] Influenza Virus Vaccine Quad IM 3+ 2015-11-22 00:00:00 Completed [facility] Influenza Virus Vaccine Quad IM 3+ 2015-11-22 00:00:00 Completed [facility] Influenza Virus Vaccine Quad IM 3+ YRS 2015-11-22 00:00:00 Completed [facility] Influenza Virus Vaccine Quad IM 3+ YRS 2015-11-22 00:00:00 Completed [facility] Influenza Virus Vaccine Quad IM 3+ YRS 2015-11-22 00:00:00 Completed [facility] Influenza Virus Vaccine Quad IM 3+ YRS 2015-11-22 00:00:00 Completed [facility] Influenza Virus Vaccine Quad IM 3+ YRS 2015-11-22 00:00:00 Completed [facility] Influenza Virus Vaccine Quad IM 3+ YRS 2015-11-22 00:00:00 Completed [facility] Influenza Virus Vaccine Quad IM 3+ YRS 2015-11-22 00:00:00 Completed [facility] Influenza Virus Vaccine Quad IM 3+ YRS 2015-11-22 00:00:00 Completed [facility] Influenza Virus Vaccine Quad IM 3+ YRS 2015-11-22 00:00:00 Completed [facility] Influenza Virus Vaccine Quad IM 3+ YRS Unknown Completed [facility] MMR Unknown Completed [facility] Varicella (varivax)(chicken pox) Unknown Completed [facility] TDAP Unknown Completed [facility] Influenza Virus Vaccine Quad IM 3+ YRS Unknown Completed [facility] MMR Unknown Completed [facility] Varicella (varivax)(chicken pox) Unknown Completed [facility] TDAP Unknown Completed [facility] Influenza Virus Vaccine Quad IM 3+ YRS Unknown Completed [facility] TDAP Unknown Completed [facility] MMR Unknown Completed [facility] Varicella (varivax)(chicken pox) Unknown Completed [facility] Influenza Virus Vaccine Quad IM 3+ YRS Unknown Completed [facility] TDAP Unknown Completed [facility] MMR Unknown Completed [facility] Varicella (varivax)(chicken pox) Unknown Completed [facility] Influenza Virus Vaccine Quad IM 3+ YRS Unknown Completed [facility] TDAP Unknown Completed [facility] MMR Unknown Completed [facility] Varicella (varivax)(chicken pox) Unknown Completed [facility] Influenza Virus Vaccine Quad IM 3+ YRS Unknown Completed [facility] TDAP Unknown Completed [facility] MMR Unknown Completed [facility] Varicella (varivax)(chicken pox) Unknown Completed [facility] Influenza Virus Vaccine Quad IM 3+ YRS Unknown Completed [facility] TDAP Unknown Completed [facility] MMR Unknown Completed [facility] Varicella (varivax)(chicken pox) Unknown Completed [facility] Influenza Virus Vaccine Quad IM 3+ YRS Unknown Completed [facility] MMR Unknown Completed [facility] Varicella (varivax)(chicken pox) Unknown Completed [facility] TDAP Unknown Completed [facility] HPV9 Unknown Completed [facility] MMR Unknown Completed [facility] TDAP Unknown Completed [facility] HPV9 Unknown Completed [facility] Varicella (varivax)(chicken pox) Unknown Completed [facility] Influenza Virus Vaccine Quad .5 mL IM 6+ MO (FLUZONE/FLULAVAL/F LUARIX) Unknown Completed [facility] Influenza Virus Vaccine Quad IM 3+ YRS Unknown Completed [facility] MMR Unknown Completed [facility] Varicella (varivax)(chicken pox) Unknown Completed [facility] TDAP Unknown Completed [facility] HPV9 Unknown Completed [facility] MMR Unknown Completed [facility] TDAP Unknown Completed [facility] HPV9 Unknown Completed [facility] Influenza Virus Vaccine Quad IM, Preserv and ABX Free 6 MO-64 YRS (FLUCELVAX) Unknown Completed [facility] Varicella (varivax)(chicken pox) Unknown Completed [facility] Influenza Virus Vaccine Quad .5 mL IM 6+ MO (FLUZONE/FLULAVAL/F LUARIX) Unknown Completed [facility] Influenza Virus Vaccine Quad IM 3+ YRS Unknown Completed [facility] TDAP Unknown Completed [facility] MMR Unknown Completed [facility] Varicella (varivax)(chicken pox) Unknown Completed [facility] HPV9 Unknown Completed [facility] Influenza Virus Vaccine Quad IM, Preserv and ABX Free 6 MO-64 YRS (FLUCELVAX) Unknown Completed [facility] MMR Unknown Completed [facility] HPV9 Unknown Completed [facility] Influenza Virus Vaccine Quad IM, Preserv and ABX Free 6 MO-64 YRS (FLUCELVAX) Unknown Completed [facility] Influenza Virus Vaccine Quad IM 3+ YRS Unknown Completed [facility] TDAP Unknown Completed [facility] Varicella (varivax)(chicken pox) Unknown Completed [facility] Influenza Virus Vaccine Quad IM 3+ YRS Unknown Completed [facility] TDAP Unknown Completed [facility] MMR Unknown Completed [facility] Varicella (varivax)(chicken pox) Unknown Completed [facility] HPV9 Unknown Completed [facility] Influenza Virus Vaccine Quad IM, Preserv and ABX Free 6 MO-64 YRS (FLUCELVAX) Unknown Completed [facility] Influenza Virus Vaccine Quad IM 3+ YRS Unknown Completed [facility] TDAP Unknown Completed [facility] MMR Unknown Completed [facility] Varicella (varivax)(chicken pox) Unknown Completed [facility] HPV9 Unknown Completed [facility] Influenza Virus Vaccine Quad IM, Preserv and ABX Free 6 MO-64 YRS (FLUCELVAX) Unknown Completed [facility] Influenza Virus Vaccine Quad IM 3+ YRS Unknown Completed [facility] TDAP Unknown Completed [facility] MMR Unknown Completed [facility] Varicella (varivax)(chicken pox) Unknown Completed [facility] HPV9 Unknown Completed [facility] Influenza Virus Vaccine Quad IM, Preserv and ABX Free 6 MO-64 YRS (FLUCELVAX) Unknown Completed [facility] Influenza Virus Vaccine Quad IM 3+ YRS Unknown Completed [facility] TDAP Unknown Completed [facility] MMR Unknown Completed [facility] Varicella (varivax)(chicken pox) Unknown Completed [facility] HPV9 Unknown Completed [facility] Influenza Virus Vaccine Quad IM, Preserv and ABX Free 6 MO-64 YRS (FLUCELVAX) Unknown Completed [facility] Influenza Virus Vaccine Quad IM 3+ YRS Unknown Completed [facility] TDAP Unknown Completed [facility] MMR Unknown Completed [facility] Varicella (varivax)(chicken pox) Unknown Completed [facility] HPV9 Unknown Completed [facility] Influenza Virus Vaccine Quad IM, Preserv and ABX Free 6 MO-64 YRS (FLUCELVAX) Unknown Completed [facility] TD Pres-Free Unknown Completed [facility] Vital Signs Vital Name Observation Time Observation Value Comments S ource Systolic blood pressure 2024-08-18 14:07:00 112 mm[Hg] [facility] Diastolic blood pressure 2024-08-18 14:07:00 76 mm[Hg] [facility] Heart rate 2024-08-18 14:07:00 83 /min [facility] Body temperature 2024-08-18 14:07:00 35.94 Tanika [facility] Respiratory rate 2024-08-18 14:07:00 17 /min [facility] Body height 2024-08-18 14:07:00 152.4 cm [facility] Body weight 2024-08-18 14:07:00 75.297 kg [facility] BMI 2024-08-18 14:07:00 32.42 kg/m2 [facility] Systolic blood pressure 2024-05-12 01:04:00 132 mm[Hg] [facility] Diastolic blood pressure 2024-05-12 01:04:00 78 mm[Hg] [facility] Heart rate 2024-05-12 01:04:00 67 /min [facility] Body temperature 2024-05-12 01:04:00 36.72 Tanika [facility] Respiratory rate 2024-05-12 01:04:00 15 /min [facility] Oxygen saturation in Arterial blood by Pulse oximetry 2024-05-12 01:04:00 99 /min [facility] Body height 2024-05-11 23:21:00 152.4 cm [facility] Body weight 2024-05-11 23:21:00 77.111 kg [facility] BMI 2024-05-11 23:21:00 33.20 kg/m2 [facility] Systolic blood pressure 2024-03-03 00:54:24 114 mm[Hg] [facility] Diastolic blood pressure 2024-03-03 00:54:24 74 mm[Hg] [facility] Heart rate 2024-03-03 00:54:24 88 [facility] Body temperature 2024-03-03 00:54:24 36.67 Tanika [facility] Respiratory rate 2024-03-03 00:54:24 18 /min [facility] Oxygen saturation in Arterial blood by Pulse oximetry 2024-03-03 00:54:24 97 /min [facility] Body height 2024-03-02 22:13:00 152.4 cm [facility] Body weight 2024-03-02 22:13:00 79.379 kg [facility] BMI 2024-03-02 22:13:00 34.18 kg/m2 [facility] Systolic blood pressure 2023-12-28 20:41:00 118 mm[Hg] [facility] Diastolic blood pressure 2023-12-28 20:41:00 79 mm[Hg] [facility] Heart rate 2023-12-28 20:41:00 85 /min [facility] Body temperature 2023-12-28 20:41:00 36.72 Tanika [facility] Respiratory rate 2023-12-28 20:41:00 16 /min [facility] Body height 2023-12-28 20:41:00 152.4 cm [facility] Body weight 2023-12-28 20:41:00 86.32 kg [facility] BMI 2023-12-28 20:41:00 37.17 kg/m2 [facility] Oxygen saturation in Arterial blood by Pulse oximetry 2023-12-28 20:41:00 99 /min [facility] Systolic blood pressure 2023-09-17 13:03:00 120 mm[Hg] [facility] Diastolic blood pressure 2023-09-17 13:03:00 78 mm[Hg] [facility] Heart rate 2023-09-17 13:03:00 113 /min [facility] Body temperature 2023-09-17 13:03:00 36.56 Tanika [facility] Respiratory rate 2023-09-17 13:03:00 20 /min [facility] Body height 2023-09-17 13:03:00 152.4 cm [facility] Body weight 2023-09-17 13:03:00 86.864 kg [facility] BMI 2023-09-17 13:03:00 37.40 kg/m2 [facility] Oxygen saturation in Arterial blood by Pulse oximetry 2023-09-17 13:03:00 97 /min [facility] Systolic blood pressure 2023-09-07 21:31:00 120 mm[Hg] [facility] Diastolic blood pressure 2023-09-07 21:31:00 83 mm[Hg] [facility] Heart rate 2023-09-07 21:31:00 115 /min [facility] Body temperature 2023-09-07 21:31:00 36.94 Tanika [facility] Respiratory rate 2023-09-07 21:31:00 17 /min [facility] Body height 2023-09-07 21:31:00 152.4 cm [facility] Body weight 2023-09-07 21:31:00 87.714 kg [facility] BMI 2023-09-07 21:31:00 37.77 kg/m2 [facility] Oxygen saturation in Arterial blood by Pulse oximetry 2023-09-07 21:31:00 98 /min [facility] Systolic blood pressure 2023-07-01 19:18:00 117 mm[Hg] [facility] Diastolic blood pressure 2023-07-01 19:18:00 73 mm[Hg] [facility] Heart rate 2023-07-01 19:18:00 76 /min [facility] Body temperature 2023-07-01 19:18:00 36.61 Tanika [facility] Respiratory rate 2023-07-01 19:18:00 18 /min [facility] Body height 2023-07-01 19:18:00 152.4 cm [facility] Body weight 2023-07-01 19:18:00 80.287 kg [facility] BMI 2023-07-01 19:18:00 34.57 kg/m2 [facility] Systolic blood pressure 2022-08-06 19:54:00 115 mm[Hg] [facility] Diastolic blood pressure 2022-08-06 19:54:00 84 mm[Hg] [facility] Heart rate 2022-08-06 19:54:00 96 /min [facility] Respiratory rate 2022-08-06 19:54:00 18 /min [facility] Body height 2022-08-06 19:54:00 152.4 cm [facility] Body weight 2022-08-06 19:54:00 71.033 kg [facility] BMI 2022-08-06 19:54:00 30.58 kg/m2 [facility] Oxygen saturation in Arterial blood by Pulse oximetry 2022-08-06 19:54:00 98 /min [facility] Systolic blood pressure 2022-06-05 18:10:00 112 mm[Hg] [facility] Diastolic blood pressure 2022-06-05 18:10:00 81 mm[Hg] [facility] Heart rate 2022-06-05 18:10:00 87 /min [facility] Body temperature 2022-06-05 18:10:00 36.89 Tanika [facility] Respiratory rate 2022-06-05 18:10:00 18 /min [facility] Body height 2022-06-05 18:10:00 152.4 cm [facility] Body weight 2022-06-05 18:10:00 71.623 kg [facility] BMI 2022-06-05 18:10:00 30.84 kg/m2 [facility] Systolic blood pressure 2022-04-12 20:06:00 108 mm[Hg] [facility] Diastolic blood pressure 2022-04-12 20:06:00 75 mm[Hg] [facility] Heart rate 2022-04-12 20:06:00 73 /min [facility] Respiratory rate 2022-04-12 20:06:00 18 /min [facility] Body height 2022-04-12 20:06:00 152.4 cm [facility] Body weight 2022-04-12 20:06:00 72.831 kg [facility] BMI 2022-04-12 20:06:00 31.36 kg/m2 [facility] Systolic blood pressure 2024-03-03 00:54:24 114 mm[Hg] [facility] Diastolic blood pressure 2024-03-03 00:54:24 74 mm[Hg] [facility] Heart rate 2024-03-03 00:54:24 88 /min [facility] Body temperature 2024-03-03 00:54:24 36.67 Tanika [facility] Respiratory rate 2024-03-03 00:54:24 18 /min [facility] Oxygen saturation in Arterial blood by Pulse oximetry 2024-03-03 00:54:24 97 /min [facility] Body height 2024-03-02 22:13:00 152.4 cm [facility] Body weight 2024-03-02 22:13:00 79.379 kg [facility] BMI 2024-03-02 22:13:00 34.18 kg/m2 [facility] Procedures Procedure Date / Time Performed Performing Clinicia n Source ED LACERATION REPAIR 2024-05-12 00:34:28 Chaka Hill [facility] ED LACERATION REPAIR 2024-05-12 00:29:28 Chaka Hill [facility] XR HAND 3+ VW RIGHT 2024-05-11 23:41:31 Bijal Hill [facility] POCT TEST 2024-03-02 23:00:00 Babak Briceno [facility] POCT TEST 2024-03-02 23:00:00 Babak Briceno [facility] COMP. METABOLIC PANEL ([id number]) 2024-03-02 22:59:00 Roel Briceno [facility] TOTAL BETA HCG ASSAY 2024-03-02 22:59:00 Barry Briceno [facility] CBC WITH DIFF 2024-03-02 22:59:00 Roel Briceno [facility] URINALYSIS 2024-03-02 22:59:00 [facility] URINALYSIS 2024-03-02 22:59:00 [facility] TOTAL BETA HCG ASSAY 2024-03-02 22:59:00 Barry Briceno [facility] CBC WITH DIFF 2024-03-02 22:59:00 Roel Briceno [facility] COMP. METABOLIC PANEL (75373) 2024-03-02 22:59:00 Roel Briceno [facility] GC & CHLAMYDIA AMPLIFIED ASSAY 2023-12-28 20:55:00 Heather Avelar [facility] POCT URINALYSIS 2023-12-28 00:00:00 Heather Avelar [facility] POCT TEST 2023-12-28 00:00:00 Debbie Avelar y [facility] FLU VACC ([id number]), 6 MO-64 YRS, .5ML, IM, QUAD (FLUCELVAX) 2023-09-17 13:33:48 Obi-EduardJia phillip [facility] POCT URINALYSIS 2023-09-07 21:35:00 Heather Avelar [facility] POCT TEST 2023-09-07 21:34:00 Debbie Avelar [facility] GARDASIL 9 (HPV 9V) VACCINE 2023-07-01 20:57:35 [place] [facility] HIV 1/2 AG-AB WITH REFLEX 2023-07-01 20:11:00 [place] [facility] CONSENT/REFUSAL FOR DIAGNOSIS AND TREATMENT 2023-07-01 18:57:53 Doctor Unassigned, [place]os [facility] ASSIGNMENT OF BENEFITS 2023-07-01 18:57:30 Docto r Unassigned, [place] [facility] POCT TEST 2022-06-05 18:19:00 Jeet Allen [facility] LAB ONLY PAP SMEAR-LIQUID BASED 2022-04-12 20:30:00 Jeet Allen [facility] HCV ANTIBODY 2017-10-14 23:02:00 Magdalena Mcmanus [facility] Encounters Start Date/Time End Date/Time Encounter Type Admission Type Attending Clinicians Care Facility Care Department Encounter ID Source 2024-08-25 08:45:00 2024-08-25 08:45:00 Outpatient ROSALES SNIDER [facility] [id number] [facility] 2024-08-20 00:00:00 2024-08-20 14:05:25 Telephone Faye Rowland [facility] [id number] [facility] 2024-08-18 10:30:00 2024-08-18 10:30:00 Office Visit Faye Rowland [facility] [id number] [facility] 2024-08-18 10:30:00 2024-08-18 09:37:14 Outpatient R JANETTHONORIOFAYE [facility] [id number] [facility] 2024-08-18 08:40:00 2024-08-18 08:40:00 Outpatient R OBI-EDUARD , JIA OBI-EDUARD , JIA [facility] [id number] [facility] 2024-07-01 13:30:00 2024-07-01 13:30:00 Outpatient R ESME HUNG [facility] [id number] [facility] 2024-05-11 18:22:00 2024-05-11 20:06:00 Emergency X BIJAL HILL [facility] ERT [id number] [facility] 2024-05-11 18:22:00 2024-05-11 20:06:00 Emergency Bijal Hill [facility] [id number] [id number] [facility] 2024-03-04 13:15:00 2024-03-04 13:15:00 Outpatient R ESME HUNG [facility] [id number] [facility] 2024-03-02 17:15:00 2024-03-02 19:58:00 Emergency X ROEL BRICENO [facility] ERT [id number] [facility] 2024-03-02 17:15:00 2024-03-02 19:58:00 Emergency Roel Briceno [id number] [facility] 2024-03-02 00:00:00 2024-03-02 00:00:00 Travel [id number] [facility] 2023-12-29 00:00:00 2023-12-29 00:00:00 Telephone Alejandra Krishna [facility] [id number] [facility] 2023-12-28 15:00:00 2023-12-28 15:00:58 Outpatient R HEATHER [facility] [facility] [id number] [facility] 2023-12-28 15:00:00 2023-12-28 15:00:58 Urgent Care Heather Avelar Unknown, Attending [facility] 1.2.840.114 350.1.13.10 4.2.7.2.686 [id number] [facility] 2023-10-17 15:40:00 2023-10-17 15:40:00 Outpatient R OBI-JIA CHAPA UZOMA [facility] [id number] [facility] 2023-10-15 14:20:00 2023-10-15 14:20:00 Outpatient R OBI-JIA CHAPA UZOMA [facility] [id number] [facility] 2023-09-18 00:00:00 2023-09-18 00:00:00 Patient Outreach Sonia Sims [facility] 1.2840.114 350.1.13.10 4.2.7.2.686 [id number] [facility] 2023-09-17 09:00:00 2023-09-17 09:15:00 Chef Broiler Or Fry Visit 2, Adc Lab Obi-Eduard [facility] BUILDING 1.2840.114 350.1.13.10 4.2.7.2.686 [id number] [facility] 2023-09-17 08:00:00 2023-09-17 08:49:03 Outpatient R OBI-EDUARD [facility] OB-EDUARD , [facility] [id number] [facility] 2023-09-17 08:00:00 2023-09-17 08:49:03 Office Visit judi-Eduard [facility] BUILDING 1.2840.114 350.1.13.10 4.2.7.2.686 [id number] [facility] 2023-09-17 00:00:00 2023-09-17 00:00:00 Refill Obi-Eduard [facility] NAL BUILDING 1.2.840.114 350.1.13.10 4.2.7.2.686 [id number] [facility] 2023-09-08 00:00:00 2023-09-08 00:00:00 Case Management Heather Avelar [facility] 1.2840.114 350.1.13.10 4.2.7.2.686 [id number] [facility] 2023-09-07 16:00:00 2023-09-07 17:03:12 Outpatient R HEATHER AVELAR [facility] [id number] [facility] 2023-09-07 16:00:00 2023-09-07 17:03:12 Urgent Care Heather Avelar Unknown, Attending [facility] ALYSSIA?[facility] 1..840.114 350.1.13.10 4.2.7.2.686 [id number] [facility] 2023-08-09 13:00:00 2023-08-09 13:00:00 Outpatient R RENAN AC [facility] [id number] [facility] 2023-08-02 13:00:00 2023-08-02 13:00:00 Outpatient R FAYE ROWLAND [facility] [id number] [facility] 2023-07-05 00:00:00 2023-07-05 00:00:00 Patient Secure Msg Doty [facility] MATERNAL & [facility]ILD [facility] 1..840.114 350.1.13.10 4.2.7.2.686 [id number] [facility] 2023-07-01 14:30:00 2023-07-01 15:13:41 Outpatient DIETER LAZO [facility] [id number] [facility] 2023-07-01 14:30:00 2023-07-01 15:13:41 Office Visit Provider, Donnie-Rmchp Cassia Doty [facility] MATERNAL & CHILD [facility] ..840.114 350.1.13.10 4.2.7.2.686 [id number] [facility] 2023-07-01 00:00:00 2023-07-01 00:00:00 Orders Only Doctor Unassigned, Mancos [facility] 1..114 350.1.13.10 4.2.7.2.686 [id number] [facility] 2023-06-25 00:00:00 2023-06-25 00:00:00 Patient Secure Msg Doctor Unassigned, Mancos [facility] & CHILD [facility] 1.0.114 350.1.13.10 4.2.7.2.686 [id number] [facility] 2023-06-24 00:00:00 2023-06-24 00:00:00 Telephone Pcp, Patient Does Not Have A [facility] 1..114 350.1.13.10 4.2.7.2.686 [id number] [facility] 2022-08-06 14:30:00 2022-08-06 15:18:59 Outpatient R JEET ALLEN [facility] [id number] [facility] 2022-08-06 14:30:00 2022-08-06 15:18:59 Office Visit Jeet Allen [facility] 1.114 350.1.13.10 4.2.7.2.686 [id number] [facility] 2022-07-04 15:00:00 2022-07-04 15:00:00 Outpatient R SUZI RANDHAWA CHERYAL [facility] [id number] [facility] 2022-07-03 10:00:00 2022-07-03 10:00:00 Outpatient R JEET ALLEN [facility] [id number] [facility] 2022-06-08 00:00:00 2022-06-08 00:00:00 Telephone Alejandro Jeet [facility] 1..114 350.1.13.10 4.2.7.2.686 [id number] [facility] 2022-06-06 14:00:00 2022-06-06 14:00:00 Outpatient R JEET ALLEN [facility] [id number] [facility] 2022-06-05 13:00:00 2022-06-05 13:58:59 Outpatient R JEET ALLEN [facility] [id number] [facility] 2022-06-05 13:00:00 2022-06-05 13:58:59 Routine Visit Jeet Allen [facility] 1.0.114 350.1.13.10 4.2.7.2.686 [id number] [facility] 2022-06-05 00:00:00 2022-06-05 00:00:00 Telephone Alejandro Jeet [facility] 1.840.114 350.1.13.10 4.2.7.2.686 [id number] [facility] 2022-04-27 00:00:00 2022-04-27 00:00:00 Case Management Alejandro Jeet [facility] 1.2840.114 350.1.13.10 4.2.7.2.686 [id number] [facility] 2022-04-24 13:00:00 2022-04-24 13:00:00 Outpatient R JEET ALLEN [facility] [id number] [facility] 2022-04-24 13:00:00 2022-04-24 13:00:00 Outpatient R JEET ALLEN [facility] [id number] [facility] 2022-04-24 00:00:00 2022-04-24 00:00:00 Patient Secure Msg Doctor Unassigned, Mancos [facility] 1.840.114 350.1.13.10 4.2.7.2.686 [id number] 134 [id number] [facility] 2022-04-18 00:00:00 2022-04-18 00:00:00 Case Management Jeet Allen [facility] 1.2840.114 350.1.13.10 4.2.7.2.686 [id number] [facility] 2022-04-12 15:00:00 2022-04-12 15:33:29 Office Visit Jeet Allen [facility] 1.284.114 350.1.13.10 4.2.7.2.686 [id number] [facility] 2022-04-12 15:00:00 2022-04-12 15:33:29 Outpatient R JEET ALLEN [facility] [id number] [facility] 2022-04-12 15:00:00 2022-04-12 15:00:00 Outpatient R JEET ALLEN [facility] [id number] [facility] 2022-03-20 14:30:00 2022-03-20 14:30:00 Outpatient R SUZI RANDHAWA CHERYAL [facility] [id number] [facility] 2022-03-19 13:15:00 2022-03-19 13:15:00 Outpatient R ALEJANDROAICHAN [facility] [id number] [facility] 2022-02-22 09:30:00 2022-02-22 09:30:00 Outpatient R ALEJANDROAICHAN [facility] [id number] [facility] 2022-02-16 13:21:00 2022-02-17 18:00:00 Inpatient SHERRI LONGO [facility] [id number] [facility] 2022-02-16 13:21:00 2022-02-17 18:00:00 Hospital Encounter Alejandro Sherri Levy [facility] 1.2840.114 350.1.13.10 4.2.7.2.686 [id number] [facility] 2022-02-15 13:00:00 2022-02-15 13:30:13 Outpatient R JEET ALLEN [facility] [id number] [facility] 2022-02-15 13:00:00 2022-02-15 13:30:13 Routine Visit Jeet Allen [facility] 1.840.114 350.1.13.10 4.2.7.2.686 [id number] [facility] 2022-02-13 10:00:00 2022-02-13 10:00:00 Outpatient R JEET ALLEN [facility] [id number] [facility] 2022-02-08 09:30:00 2022-02-08 09:45:00 Chef Broiler Or Fry Visit Ryan, Adeola Lab Main Jeet Allen [facility] 1..840.114 350.1.13.10 4.2.7.2.686 [id number] [facility] 2022-02-08 09:30:00 2022-02-08 09:30:00 Outpatient R JEET ALLEN [facility] [id number] [facility] 2022-02-08 00:00:00 2022-02-08 00:00:00 Case Management Jeet Allen [facility] 1.840.114 350.1.13.10 4.2.7.2.686 [id number] [facility] 2022-02-06 08:15:00 2022-02-06 08:55:07 Outpatient R JEET ALLEN [facility] [id number] [facility] 2022-02-06 08:15:00 2022-02-06 08:55:07 Routine Visit Jeet Allen [facility] 1.114 350.1.13.10 4.2.7.2.686 [id number] [facility] 2022-01-30 13:00:00 2022-01-30 14:13:53 Outpatient R JEET ALLEN [facility] [id number] [facility] 2022-01-30 13:00:00 2022-01-30 14:13:53 Routine Visit Jeet Allen [facility] 1.114 350.1.13.10 4.2.7.2.686 [id number] [facility] 2022-01-30 13:00:00 2022-01-30 13:00:00 Outpatient R JEET ALLEN [facility] [id number] [facility] 2022-01-30 00:00:00 2022-01-30 00:00:00 Orders Only Doctor Unassigned, Mancos [facility] 1.114 350.1.13.10 4.2.7.2.686 [id number] [facility] 2022-01-25 13:15:00 2022-01-25 13:15:00 Outpatient R JEET ALLEN [facility] [id number] [facility] 2022-01-16 13:00:00 2022-01-16 13:00:00 Outpatient R JEET ALLEN [facility] [id number] [facility] 2022-01-02 08:00:00 2022-01-02 08:38:59 Outpatient R JEET ALLEN [facility] [id number] [facility] 2022-01-02 08:00:00 2022-01-02 08:38:59 Routine Visit Jeet Allen [facility] 1.114 350.1.13.10 4.2.7.2.686 [id number] 134 [id number] [facility] 2021-12-19 15:15:00 2021-12-19 15:30:00 Chef Broiler Or Fry Visit Pob, Adc Lab Main Jeet Allen [facility] 1.840.114 350.1.13.10 4.2.7.2.686 [id number] [facility] 2021-12-19 15:15:00 2021-12-19 15:15:00 Outpatient R JEET ALLEN [facility] [id number] [facility] 2021-12-18 08:00:00 2021-12-18 08:42:01 Outpatient JEET CRAIG [facility] [id number] [facility] 2021-12-18 08:00:00 2021-12-18 08:42:01 Routine Visit Jeet Allen [facility] 1.840.114 350.1.13.10 4.2.7.2.686 [id number] 134 [id number] [facility] 2021-12-11 08:00:00 2021-12-11 08:00:00 Outpatient JEET CRAIG [facility] [id number] [facility] 2021-11-23 13:45:00 2021-11-23 13:45:00 Outpatient JEET CRAIG [facility] [id number] [facility] 2021-11-02 16:00:00 2021-11-02 16:00:00 Outpatient JEET CRAIG [facility] [id number] [facility] 2021-10-24 13:00:00 2021-10-24 13:00:00 Outpatient JEET CRAIG [facility] [id number] [facility] 2021-10-16 00:00:00 2021-10-16 00:00:00 Patient Secure Msg Doctor Unassigned, Mancos [facility] 1.840.114 350.1.13.10 4.2.7.2.686 [id number] [facility] 2021-10-09 14:38:28 2021-10-09 15:38:28 Chef Broiler Or Fry Visit Ultrasound, Ronaldo Guevara [facility] MATERNAL & CHILD [facility] 1..840.114 350.1.13.10 4.2.7.2.686 [id number] [facility] 2021-10-09 14:45:00 2021-10-09 14:45:00 Outpatient P RONALDO POOLE SANGEETA [facility] [id number] [facility] 2021-09-26 11:00:00 2021-09-26 11:26:44 Outpatient R AICHA ALLENN [facility] [id number] [facility] 2021-09-26 10:59:39 2021-09-26 11:26:44 Routine Visit Aicha Allenn [facility] 1.840.114 350.1.13.10 4.2.7.2.686 [id number] [facility] 2021-09-18 13:30:00 2021-09-18 13:30:00 Outpatient R AICHA ALLENN [facility] [id number] [facility] 2021-09-15 10:30:00 2021-09-15 10:30:00 Outpatient R [facility] [id number] [facility] 2021-09-13 00:00:00 2021-09-13 00:00:00 Patient Secure Msg Doctor Unassigned, Mancos [facility] 1.840.114 350.1.13.10 4.2.7.2.686 [id number] [facility] 2021-09-04 09:45:00 2021-09-04 09:45:00 Outpatient R [facility] [id number] [facility] 2021-08-31 14:33:19 2021-08-31 15:17:26 Initial Visit Jeet Allen [facility] 1.2840.114 350.1.13.10 4.2.7.2.686 [id number] [facility] 2021-08-31 14:30:00 2021-08-31 14:30:00 Outpatient R JEET ALLEN [facility] [id number] [facility] 2021-08-22 10:30:00 2021-08-22 10:30:00 Outpatient R FAYE ROWLAND [facility] [id number] [facility] 2021-08-17 14:30:00 2021-08-17 14:30:00 Outpatient R JEET ALLEN [facility] [id number] [facility] 2021-08-09 11:30:00 2021-08-09 11:30:00 Outpatient P [facility] [id number] [facility] 2021-07-26 00:00:00 2021-07-26 00:00:00 Telephone Jessee Rosas [facility] MATERNAL & CHILD [facility] 1.2.840.114 350.1.13.10 4.2.7.2.686 [id number] [facility] 2021-07-25 09:34:21 2021-07-25 10:03:24 Routine Visit Jessee Rosas [facility] MATERNAL & CHILD [facility] 1.2.840.114 350.1.13.10 4.2.7.2.686 [id number] [facility] 2021-07-25 09:34:21 2021-07-25 10:03:24 Routine Visit Jessee oRsas [facility] MATERNAL & CHILD [facility] 1.2.840.114 350.1.13.10 4.2.7.2.686 [id number] [facility] 2021-07-25 09:30:00 2021-07-25 09:30:00 Outpatient SARAH CAMACHORACQUEL [facility] [id number] [facility] 2021-07-18 00:00:00 2021-07-18 00:00:00 Telephone Sarah Rosasracquel Goodwin [facility] MATERNAL & CHILD [facility] 1.2.840.114 350.1.13.10 4.2.7.2.686 [id number] [facility] 2021-07-18 00:00:00 2021-07-18 00:00:00 Telephone Sarah Rosasracquel [facility] & CHILD [facility] 1.2.840.114 350.1.13.10 4.2.7.2.686 [id number] [facility] 2021-06-26 11:13:01 2021-06-26 12:20:19 Initial Visit Sarah Rosasracquel [facility] & CHILD [facility] 1.2840.114 350.1.13.10 4.2.7.2.686 [id number] [facility] 2021-06-26 11:15:00 2021-06-26 11:15:00 Outpatient Christa ROSAS JESSEE [facility] [id number] [facility] 2021-06-26 10:45:00 2021-06-26 10:45:00 Outpatient Christa ROSAS JESSEE [facility] [id number] [facility] 2021-06-26 00:00:00 2021-06-26 00:00:00 Orders Only Doctor Unassigned, Mancos [facility] 1.2.840.114 350.1.13.10 4.2.7.2.686 [id number] [facility] 2021-06-26 00:00:00 2021-06-26 00:00:00 Telephone Kendall Skyler Flavia [facility] MATERNAL & CHILD [facility] 1.2.840.114 350.1.13.10 4.2.7.2.686 [id number] [facility] 2021-06-21 00:00:00 2021-06-21 00:00:00 Patient Secure Msg Doctor Unassigned, Mancos [facility] & CHILD [facility] 1.2.840.114 350.1.13.10 4.2.7.2.686 [id number] [facility] 2021-06-21 00:00:00 2021-06-21 00:00:00 Patient Secure Msg Doctor Unassigned, Mancos [facility] 1.2840.114 350.1.13.10 4.2.7.2.686 [id number] [facility] 2021-05-18 00:00:00 2021-05-18 00:00:00 Telephone Jessee Rosas [facility] CHILD [facility] 1.2.840.114 350.1.13.10 4.2.7.2.686 [id number] 107 [id number] [facility] 2021 00:00:00 2021 00:00:00 Telephone Jessee Rosas [facility] & CHILD [facility] 1.2.840.114 350.1.13.10 4.2.7.2.686 [id number] 107 [id number] [facility] 2021-05-15 16:00:00 2021-05-15 16:00:00 Outpatient R JESSEE ROSAS [facility] [id number] [facility] 2021-05-15 15:35:02 2021-05-15 15:50:02 Office Visit Jessee Rosas [facility] & CHILD [facility] 1..840.114 350.1.13.10 4.2.7.2.686 [id number] 107 [id number] [facility] 2021-05-08 13:45:00 2021-05-08 13:45:00 Outpatient R SKYLER JEFFRIES [facility] [id number] [facility] 2021-05-08 00:00:00 2021-05-08 00:00:00 Telephone Skyler Jeffries [facility] MATERNAL & CHILD [facility] 1..840.114 350.1.13.10 4.2.7.2.686 [id number] 107 [id number] [facility] 2021-03-16 14:51:57 2021-03-16 15:43:49 Nurse Visit Visit, Faye Payne [facility] 1..840.114 350.1.13.10 4.2.7.2.686 [id number] [facility] 2021-03-16 15:00:00 2021-03-16 15:00:00 Outpatient R FAYE ROWLAND [facility] [id number] [facility] 2021-03-16 09:30:00 2021-03-16 09:30:00 Outpatient R [facility] [id number] [facility] 2021-03-14 14:30:00 2021-03-14 14:30:00 Outpatient JESSEE CAMACHO [facility] [id number] [facility] 2021-03-09 08:51:27 2021-03-09 09:31:54 Nurse Visit Visit, Jessee Finney [facility] 1..840.114 350.1.13.10 4.2.7.2.686 [id number] 107 [id number] [facility] 2021-03-09 08:00:00 2021-03-09 08:00:00 Outpatient R [facility] [id number] [facility] 2021-03-02 08:54:34 2021-03-02 09:09:34 Nurse Visit Visit, Ang-Rmchp Nurse Jessee Rosas [facility] & CHILD [facility] 1.20.114 350.1.13.10 4.2.7.2.686 [id number] [facility] 2021-03-02 09:00:00 2021-03-02 09:00:00 Outpatient R JESSEE ROSAS [facility] [id number] [facility] 2021-03-02 00:00:00 2021-03-02 00:00:00 Patient Secure Msg Jessee Rosas [facility] CHILD [facility] 1.0.114 350.1.13.10 4.2.7.2.686 [id number] 107 [id number] [facility] 2021-02-27 00:00:00 2021-02-27 00:00:00 Telephone Jessee Rosas [facility] CHILD [facility] 1..114 350.1.13.10 4.2.7.2.686 [id number] 107 [id number] [facility] 2021-02-27 00:00:00 2021-02-27 00:00:00 Telephone Jessee Rosas [facility] CHILD [facility] .20.114 350.1.13.10 4.2.7.2.686 [id number] 107 [id number] [facility] 2021-02-24 08:47:45 2021-02-24 09:36:42 Office Visit Jessee Rosas [facility] & CHILD [facility] 1.2840.114 350.1.13.10 4.2.7.2.686 [id number] [facility] 2021-02-24 08:45:00 2021-02-24 08:45:00 Outpatient JESSEE CAMACHO [facility] [id number] [facility] 2021-02-24 08:45:00 2021-02-24 08:45:00 Outpatient Christa JESSEE ROSAS [facility] [id number] [facility] 2021-02-24 00:00:00 2021-02-24 00:00:00 Orders Only Doctor Unassigned, Mancos [facility] 1.840.114 350.1.13.10 4.2.7.2.686 [id number] [facility] 2021-02-06 09:45:00 2021-02-06 09:45:00 Outpatient JESSEE CAMACHO [facility] [id number] [facility] 2021-01-25 13:30:00 2021-01-25 13:30:00 Outpatient R [facility] [id number] [facility] 2020-12-29 09:30:00 2020-12-29 09:30:00 Outpatient SKYLER WILSON [facility] [id number] [facility] 2020-12-27 08:15:00 2020-12-27 08:15:00 Outpatient SKYLER WILSON [facility] [id number] [facility] 2020-12-27 08:15:00 2020-12-27 08:15:00 Outpatient SKYLER WILSON [facility] [id number] [facility] 2020-10-27 13:26:29 2020-10-27 13:42:30 Nurse Visit Visit, Ang-Rmchp Skyler Chance [facility] 1.840.114 350.1.13.10 4.2.7.2.686 [id number] [facility] 2020-10-27 13:26:29 2020-10-27 13:42:30 Nurse Visit Visit, Ang-Rmchp Nurse [facility] 1.2.840.114 350.1.13.10 4.2.7.2.686 [id number] 2020-10-27 13:30:00 2020-10-27 13:30:00 Outpatient SKYLER WILSON [facility] [id number] [facility] 2020-10-26 00:00:00 2020-10-26 00:00:00 Telephone Skyler Jeffries [facility] 1.2.840.114 350.1.13.10 4.2.7.2.686 [id number] [facility] 2020-10-26 00:00:00 2020-10-26 00:00:00 Telephone Skyler Jeffries [facility] 1.2.840.114 350.1.13.10 4.2.7.2.686 [id number] 2020-10-25 08:33:39 2020-10-25 09:04:09 Office Visit Skyler Jeffries [facility]ILD [facility] 1.2.840.114 350.1.13.10 4.2.7.2.686 [id number] [facility] 2020-10-25 08:33:39 2020-10-25 09:04:09 Office Visit Skyler Jeffries [facility]ILD [facility] 1.2.840.114 350.1.13.10 4.2.7.2.686 [id number] 2020-10-25 08:30:00 2020-10-25 08:30:00 Outpatient SKYLER WILSON [facility] [id number] [facility] 2020-10-10 14:30:00 2020-10-10 14:30:00 Outpatient JESSEE CAMACHO [facility] [id number] [facility] 2020-09-19 13:15:00 2020-09-19 13:15:00 Outpatient R [facility] [id number] [facility] 2020-09-15 15:45:00 2020-09-15 15:45:00 Outpatient R FAYE ROWLAND [facility] [id number] [facility] 2020-09-06 10:00:00 2020-09-06 10:00:00 Outpatient R SKYLER JEFFRIES [facility] [id number] [facility] 2020-08-22 13:45:00 2020-08-22 13:45:00 Outpatient R JESSEE ROSAS [facility] [id number] [facility] 2020-08-18 15:15:00 2020-08-18 15:15:00 Outpatient R SKYLER JEFFRIES [facility] [id number] [facility] 2020-08-05 16:40:00 2020-08-05 16:40:00 Outpatient R [facility] [id number] [facility] 2020-07-09 00:00:00 2020-07-09 00:00:00 Refill Doctor Unassigned, Mancos [facility] .840.114 350.1.13.10 4.2.7.2.686 [id number] [facility] 2020-07-08 00:00:00 2020-07-08 00:00:00 Refill Doctor Unassigned, Mancos [facility] .840.114 350.1.13.10 4.2.7.2.686 [id number] [facility] 2020-06-17 08:00:00 2020-06-17 08:00:00 Outpatient R [facility] [id number] [facility] 2020-06-16 00:00:00 2020-06-16 00:00:00 [facility] CHILD [facility] 1.2.840.114 350.1.13.10 4.2.7.2.686 [id number] [facility] 2020-06-06 00:00:00 2020-06-06 00:00:00 Telephone Valeria Jeffriesily Flavia [facility] CHILD [facility] 1.2840.114 350.1.13.10 4.2.7.2.686 [id number] [facility] 2020-06-06 00:00:00 2020-06-06 00:00:00 Refill Doctor Unassigned, Mancos [facility] 1.2.840.114 350.1.13.10 4.2.7.2.686 [id number] [facility] 2020-06-03 13:18:54 2020-06-03 14:11:50 Office Visit Skyler Jeffries [facility] CHILD [facility] 1.2840.114 350.1.13.10 4.2.7.2.686 [id number] [facility] 2020-06-03 13:30:00 2020-06-03 13:30:00 Outpatient SKYLER WILSON [facility] [id number] [facility] 2020-05-31 13:45:00 2020-05-31 13:45:00 Outpatient SKYLER WILSON [facility] [id number] [facility] 2020-05-31 13:45:00 2020-05-31 13:45:00 Outpatient SKYLER WILSON [facility] [id number] [facility] 2020-05-27 00:00:00 2020-05-27 00:00:00 Telephone Faye Rowland [facility] CHILD [facility] 1.2840.114 350.1.13.10 4.2.7.2.686 [id number] [facility] 2020-05-24 15:45:00 2020-05-24 15:45:00 Outpatient R FAYE ROWLAND [facility] [id number] [facility] 2020-03-28 08:30:00 2020-03-28 08:30:00 Outpatient R JESSEE ROSAS [facility] [id number] [facility] 2020-01-27 14:45:00 2020-01-27 14:45:00 Outpatient R JESSEE ROSAS [facility] [id number] [facility] 2019-12-25 14:32:33 2019-12-25 15:39:15 Office Visit Skyler Jeffries [facility] & CHILD [facility] 1..840.114 350.1.13.10 4.2.7.2.686 [id number] [facility] 2019-12-25 14:00:00 2019-12-25 15:39:15 Outpatient R SKYLER JEFFRIES [facility] [id number] [facility] 2019-12-25 00:00:00 2019-12-25 00:00:00 Orders Only Doctor Unassigned, Mancos [facility] 1.2.840.114 350.1.13.10 4.2.7.2.686 [id number] [facility] 2019-12-25 00:00:00 2019-12-25 00:00:00 Telephone Skyler Jeffries [facility] CHILD [facility] 1.2.840.114 350.1.13.10 4.2.7.2.686 [id number] [facility] Results Test Description Test Time Test Comments Results Resul t Comments Source XR HAND 3+ VW RIGHT 2024-05-12 00:20:09 PROCEDURE:XR HAND 3+ VW RIGHT ORDERING PHYSICIAN:BIJAL HILL HISTORY: ?Right hand pain TECHNIQUE: 3 views of the right hand were obtained TECHNICAL QUALITY: Adequate COMPARISON: ?None available FINDINGS: No acute fracture or malalignment is identified. ?Joint spaces arepreserved. ?There is no unexpected radiopaque foreign object [facility] Total Beta HCG Assay 2024-03-03 00:27:29 BETA HCG<2.39Non-pregn ant female and male patients: <5 mIU/mL03/02/2024 7:27 PM [facility] Gestational Age ?Range (mIU/mL) 1-10 ?Weeks ?[id number] Weeks ?[id number] 2 Weeks ?3723-28111244-01 Weeks ?[id number] Biotin has been reported to cause a negative bias, interpret results relative to patient's use of biotin. [facility] Total Beta HCG Assay 2024-03-03 00:27:29 BETA HCG<2.39Non-pregn ant female and male patients: <5 mIU/mL03/02/2024 7:27 PM [facility] Gestational Age ?Range (mIU/mL) 1-10 ?Weeks ?55-22940688-80 Weeks ?47581-60836953-5 2 Weeks ?8247-95808145-59 Weeks ?1531-349672 Biotin has been reported to cause a negative bias, interpret results relative to patient's use of biotin. [facility] ([id number])2024-03-03 00:09:55* Test Item Value Reference Range Interpretation Comme nts NA (test code = 9990670977) 139 mmol/L 135-145 K (test code = 1365309971) 3.7 mmol/L 3.5-5.0 CL (test code = 1055345406) 107 mmol/L 98-108 CO2 TOTAL (test code = 0649243480) 24 mmol/L 23-31 AGAP (test code = 7918022559) 8 2-16 BUN (test code = 1363436698) 9 mg/dL 7-23 GLUCOSE (test code = 4577589420) 100 mg/dL 70-110 CREATININE (test code = 2160-0) 0.69 mg/dL 0.50-1.04 TOTAL BILI (test code = 3876926110) 1.0 mg/dL 0.1-1.1 CALCIUM (test code = 7851414925) 9.4 mg/dL 8.6-10.6 T PROTEIN (test code = 6990111765) 7.6 g/dL 6.3-8.2 ALBUMIN (test code = 8016611549) 4.3 g/dL 3.5-5.0 ALK PHOS (test code = 1758184052) 73 U/L 34-122 ALTv (test code = 1742-6) 17 U/L 5-35 AST(SGOT) (test code = 7991975341) 34 U/L 13-40 eGFR (test code = 71603-3) 125.2 mL/min/1.73m2 CKD-EPI eGFR (20 21). Assuming creatinine has been stable day-to-day for at least three months, the eGFR indicates Category G1 (>= 90 mL/min/1.73 m2) [facility] with [id number] 23:27:09* Test Item Value Reference Range Interpretation Comme nts WBC (test code = 6690-2) 8.44 4.30-11.10 RBC (test code = 789-8) 5.06 3.93-5.25 HGB (test code = 718-7) 15.5 g/dL 11.6-15.0 H HCT (test code = 4544-3) 44.8 % 35.7-45.2 MCV (test code = 787-2) 88.5 fL 80.6-95.5 MCH (test code = 785-6) 30.6 pg 25.9-32.8 MCHC (test code = 786-4) 34.6 g/dL 31.6-35.1 RDW-SD (test code = 60926-7) 43.1 fL 39.0-49.9 RDW-CV (test code = 788-0) 13.3 % 12.0-15.5 PLT (test code = 777-3) 364 166-358 H MPV (test code = 75783-3) 9.3 fL 9.5-12.9 L NRBC/100 WBC (test code = 6073061230) 0.0 0.0-10.0 NRBC x10^3 (test code = 5123385508) See_Comment [Automated messa ge] The system which generated this result transmitted reference range: 10*3/?L. The reference range was not used to interpret this result as normal/abnormal. GRAN MAT (NEUT) % (test code = 770-8) 53.1 % IMM GRAN % (test code = 5653857070) 0.80 % LYMPH % (test code = 736-9) 38.3 % MONO % (test code = 5905-5) 5.6 % EOS % (test code = 713-8) 1.5 % BASO % (test code = 706-2) 0.7 % GRAN MAT x10^3(ANC) (test code = 2433354679) 4.48 10*3/uL 1.88-7.09 IMM GRAN x10^3 (test code = 4504953685) 0.07 10*3/uL 0.00-0.06 H LYMPH x10^3 (test code = 731-0) 3.23 10*3/uL 1.32-3.29 MONO x10^3 (test code = 742-7) 0.47 10*3/uL 0.33-0.92 EOS x10^3 (test code = 711-2) 0.13 10*3/uL 0.03-0.39 BASO x10^3 (test code = 704-7) 0.06 10*3/uL 0.01-0.07 Lab Interpretation (test code = 40313-4) Abnormal [facility] with [id number] 23:27:09* Test Item Value Reference Range Interpretation Comme nts WBC (test code = 6690-2) 8.44 4.30-11.10 RBC (test code = 789-8) 5.06 3.93-5.25 HGB (test code = 718-7) 15.5 g/dL 11.6-15.0 H HCT (test code = 4544-3) 44.8 % 35.7-45.2 MCV (test code = 787-2) 88.5 fL 80.6-95.5 MCH (test code = 785-6) 30.6 pg 25.9-32.8 MCHC (test code = 786-4) 34.6 g/dL 31.6-35.1 RDW-SD (test code = 39121-7) 43.1 fL 39.0-49.9 RDW-CV (test code = 788-0) 13.3 % 12.0-15.5 PLT (test code = 777-3) 364 166-358 H MPV (test code = 85954-4) 9.3 fL 9.5-12.9 L NRBC/100 WBC (test code = 4135976003) 0.0 0.0-10.0 NRBC x10^3 (test code = 7361795595) See_Comment [Automated messa ge] The system which generated this result transmitted reference range: 10*3/?L. The reference range was not used to interpret this result as normal/abnormal. GRAN MAT (NEUT) % (test code = 770-8) 53.1 % IMM GRAN % (test code = 7264526629) 0.80 % LYMPH % (test code = 736-9) 38.3 % MONO % (test code = 5905-5) 5.6 % EOS % (test code = 713-8) 1.5 % BASO % (test code = 706-2) 0.7 % GRAN MAT x10^3(ANC) (test code = 8363540079) 4.48 10*3/uL 1.88-7.09 IMM GRAN x10^3 (test code = 0423946476) 0.07 10*3/uL 0.00-0.06 H LYMPH x10^3 (test code = 731-0) 3.23 10*3/uL 1.32-3.29 MONO x10^3 (test code = 742-7) 0.47 10*3/uL 0.33-0.92 EOS x10^3 (test code = 711-2) 0.13 10*3/uL 0.03-0.39 BASO x10^3 (test code = 704-7) 0.06 10*3/uL 0.01-0.07 Lab Interpretation (test code = 27750-4) Abnormal [facility] [id number] 23:00:00* Test Item Value Reference Range Interpretation Comme nts POCT PREG (test code = 1605) Negative On board controls acceptable with C Line (test code = 3574) Yes Lab Interpretation (test cod e = 20702-3) Normal [facility] [id number] 23:00:00* Test Item Value Reference Range Interpretation Comme nts POCT PREG (test code = 1605) Negative On board controls acceptable with C Line (test code = 3574) Yes Lab Interpretation (test cod e = 66072-1) Normal [facility] [id number] 21:02:00* Test Item Value Reference Range Interpretation Comme nts POCT PREG (test code = 1605) Negative On board controls acceptable with C Line (test code = 3574) Yes POCT PREG LOT # (test code = 3575) POCT PREG TEST DATE ( test code = 3576) [facility] Urinalysis W Specific [id number] 20:57:00* Test Item Value Reference Range Interpretation Comme nts POCT U SP GRAV (test code = 3255) 1.015 mg/dl 1.005-1.025 POCT PH U (test code = 3254) 5 mg/dl 5-8 POCT U LEUK EST (test code = 3263) 1+ Negative - Negative POCT U NIT (test code = 3262) Negative Negative - Negati ve POCT U PROT (test code = 3259) Negative Negative - Negative POCT U GLU (test code = 3256) Normal Negative - Negati ve POCT U KETONE (test code = 3258) Negative Negative - Negative POCT U UROBILI (test code = 3260) Normal 0.2-1 POCT U BILI (test code = 3261) Negative Negative - Negative POCT U BLD (test code = 3257) Negative Negative - Negati ve POCT U COLOR (test code = 3266) yellow POCT U APPEAR (test code = 3267) clear [facility] URINALYSIS W SPECIFIC [id number] 21:41:00* Test Item Value Reference Range Interpretation Comme nts POCT U SP GRAV (test code = 3255) 1.020 mg/dl 1.005-1.025 POCT PH U (test code = 3254) 5 mg/dl 5-8 POCT U LEUK EST (test code = 3263) 2+ Negative - Negative POCT U NIT (test code = 3262) positive Negative - Negati ve POCT U PROT (test code = 3259) trace Negative - Negative POCT U GLU (test code = 3256) negative Negative - Negati ve POCT U KETONE (test code = 3258) negative Negative - Negative POCT U UROBILI (test code = 3260) normal 0.2-1 POCT U BILI (test code = 3261) negative Negative - Negative POCT U BLD (test code = 3257) 250 Negative - Negati ve POCT U COLOR (test code = 3266) yellow POCT U APPEAR (test code = 3267) cloudy Lab Interpretation (test cod e = 38535-0) [facility]normal [facility] [id number] 21:39:00* Test Item Value Reference Range Interpretation Comme nts POCT PREG (test code = 1605) Negative On board controls acceptable with C Line (test code = 3574) Yes POCT PREG LOT # (test code = 3575) POCT PREG TEST DATE ( test code = 3576) Lab Interpretation (test cod e = 83976-2) Normal [facility] [id number] 18:19:00* Test Item Value Reference Range Interpretation Comme nts POCT PREG (test code = 1605) Negative On board controls acceptable with C Line (test code = 3574) Yes POCT PREG LOT # (test code = 3575) POCT PREG TEST DATE ( test code = 3576) [facility]
[2024-12-21 23:52] LABS: Specific Gravity 1.024 (1.005-1.030)
[2024-12-21 23:56] LABS: Specific Gravity 1.024 (1.005-1.030); Sqamous Epithelial <5 /HPF (None Seen); Urine Bacteria 20-50 /HPF (<20); Urine Bilirubin NEGATIVE (Negative); Urine Blood Negative (Negative); Urine Clarity Extremely Turbid (Clear); Urine Color Yellow (Yellow); Urine Culture Reflex Order NOT NEEDED; Urine Glucose NEGATIVE (Negative); Urine Ketones 3+ (Negative); Urine Microscopic Reflex YN ORDER UMIC; Urine Mucus Slight /HPF (None Seen); Urine Nitrite NEGATIVE (Negative); Urine Protein TRACE (Negative); Urine RBC <5 /HPF (None Seen); Urine Urobilinogen Normal (Normal); Urine WBC <5 /HPF (<5)
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
[2024-12-22 02:13] VITALS: BP 110/74; TEMP 97.9; O2SAT 99
== END 2024-12-22 00:29 | disposition left against medical advice (07) ==
LOC: ER 22:37
DX: R10.84 Generalized abdominal pain (principal); R07.1 Chest pain on breathing; M54.50 Low back pain, unspecified
CPT/HCPCS: 81001; 81025